=== PATIENT | male | born 1975 ===

== ENCOUNTER 2018-03-20 13:11 | Inpatient (IN) ==
[2018-03-20] MEDS ORDERED: Morphine Inj 4 MG/ML Vial ONE (13:16)
[2018-03-20] MEDS ORDERED: Diphtheria/Tetanus/Pertussis Vaccine Inj 0.5 ML Syringe IM ONE (13:17)
[2018-03-20] MEDS ORDERED: ceFAZolin 2 GM Premix Inj 2 GM/50 ML PIGGYBACK IV.SIG ONE (13:19)
[2018-03-20 13:34] LABS: Baso # (Auto) 0.1 th/mm3 (0.0-0.2); Baso % (Auto) 1.1 % (0.0-2.0); Eos # (Auto) 0.2 th/mm3 (0.0-0.4); Eos % (Auto) 2.9 % (0.0-4.0); Hemoglobin 14.6 gm/dL (13.0-17.0); Lymph # (Auto) 3.2 th/mm3 (1.0-4.8); Lymph % (Auto) 51.5 % (9.0-44.0); Mean Corpuscular HGB Conc 33.9 % (32.0-36.0); Mean Corpuscular Hemoglobin 32.5 pg (27.0-34.0); Mean Corpuscular Volume 95.7 fL (80.0-100.0); Mean Platelet Volume 7.1 fL (7.0-11.0); Mono # (Auto) 0.6 th/mm3 (0.0-0.9); Mono % (Auto) 9.9 % (0.0-8.0); Neut # (Auto) 2.1 th/mm3 (1.8-7.7); Neut % (Auto) 34.6 % (16.0-70.0); Platelet Count 244 th/mm3 (150-450); Red Cell Distribution Width 13.1 % (11.6-17.2); White Blood Count 6.1 th/mm3 (4.0-11.0)
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
[2018-03-20 13:44] LABS: Activated Partial Thrombo Time 21.6 sec (24.3-30.1); Prothrombin Time 10.2 sec (9.8-11.6)
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
[2018-03-20 14:14] LABS: Carbon Dioxide 23.5 meq/L (21.0-32.0); Potassium 3.9 meq/L (3.5-5.1)
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
[2018-03-20] MEDS ORDERED: Naloxone Inj 0.4 MG/ML Vial IV.PUSH PRN (14:58)
[2018-03-20] MEDS ORDERED: Morphine Inj 4 MG/ML Vial IV.PUSH PRN (14:58)
[2018-03-20] MEDS ORDERED: Bisacodyl 10 MG Supp RECTAL PRN (14:58)
[2018-03-20] MEDS ORDERED: Post-op Orders (for Pharmacy) OTHER ONE (14:58)
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
[2018-03-20] MEDS ORDERED: Lidocaine PF 1% Inj 5 ML Syringe OTHER ONE (15:15)
[2018-03-20] MEDS ORDERED: Phenylephrine/NS 1000 MCG/10ML Syringe IV.PUSH ONE (15:15)
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
[2018-03-20] MEDS ORDERED: Norepinephrine Inj 4 MG/4 ML Ampul ONE ×2 (16:35→16:40)
[2018-03-20 16:45] LABS: ABG Base Excess -7.6 mmol/L (-2-2); ABG PCO2 41 mmHg (38-42); ABG PO2 369 mmHG (61-120)
[2018-03-20] MEDS ORDERED: Sodium Bicarbonate 8.4% Inj 50 MEQ/50 ML Syringe ONE (16:58)
[2018-03-20] MEDS ORDERED: fentaNYL Citrate Inj 100 MCG/2 ML Ampul ONE ×3 (17:18→19:30)
[2018-03-20 17:20] LABS: Baso % (Auto) 0.5 % (0.0-2.0); Eos % (Auto) 0.3 % (0.0-4.0); Hematocrit 32.7 % (39.0-51.0); Hemoglobin 11.4 gm/dL (13.0-17.0); Lymph # (Auto) 1.3 th/mm3 (1.0-4.8); Lymph % (Auto) 12.9 % (9.0-44.0); Mean Corpuscular HGB Conc 34.8 % (32.0-36.0); Mean Corpuscular Hemoglobin 33.2 pg (27.0-34.0); Mean Corpuscular Volume 95.5 fL (80.0-100.0); Mean Platelet Volume 7.2 fL (7.0-11.0); Mono # (Auto) 0.7 th/mm3 (0.0-0.9); Mono % (Auto) 7.2 % (0.0-8.0); Neut # (Auto) 7.6 th/mm3 (1.8-7.7); Neut % (Auto) 79.1 % (16.0-70.0); Platelet Count 195 th/mm3 (150-450); Red Blood Count 3.43 mil/mm3 (4.50-5.90); White Blood Count 9.7 th/mm3 (4.0-11.0)
[2018-03-20] MEDS ORDERED: Propofol 1000 mg/100 ml Inj 1,000 MG/100 ML BOTTLE IV.CONT PRN (17:25)
[2018-03-20 17:35] LABS: Activated Partial Thrombo Time 23.7 sec (24.3-30.1); INR 1.1 Ratio
[2018-03-20 17:39] LABS: Calcium 7.3 mg/dL (8.5-10.1); Carbon Dioxide 20.4 meq/L (21.0-32.0); Potassium 4.2 meq/L (3.5-5.1)
[2018-03-20] MEDS ORDERED: Calcium Chloride Inj 1 GM/10 ML Syringe ONE (17:46)
[2018-03-20 17:53] LABS: Total Protein 4.9 g/dL (6.4-8.2)
[2018-03-20 18:37] LABS: ABG Base Excess -5.2 mmol/L (-2-2); ABG PCO2 41 mmHg (38-42); ABG PO2 226 mmHG (61-120)
[2018-03-20 18:43] LABS: Baso % (Auto) 0.3 % (0.0-2.0); Eos % (Auto) 0.1 % (0.0-4.0); Hematocrit 33.3 % (39.0-51.0); Hemoglobin 11.3 gm/dL (13.0-17.0); Lymph # (Auto) 0.8 th/mm3 (1.0-4.8); Lymph % (Auto) 10.7 % (9.0-44.0); Mean Corpuscular HGB Conc 33.9 % (32.0-36.0); Mean Corpuscular Hemoglobin 31.3 pg (27.0-34.0); Mean Corpuscular Volume 92.4 fL (80.0-100.0); Mono # (Auto) 0.7 th/mm3 (0.0-0.9); Mono % (Auto) 9.5 % (0.0-8.0); Neut # (Auto) 6.3 th/mm3 (1.8-7.7); Neut % (Auto) 79.4 % (16.0-70.0); Platelet Count 141 th/mm3 (150-450); Red Blood Count 3.61 mil/mm3 (4.50-5.90); Red Cell Distribution Width 14.9 % (11.6-17.2); White Blood Count 7.9 th/mm3 (4.0-11.0)
[2018-03-20] MEDS: fentaNYL 10 mcg/mL Premix Drip 2,500 MCG/250 ML BAG IV.SIG PRN (19:41)
[2018-03-20] MEDS: Sod Chloride 0.9% Inj 1,000 ML IV.CONT SCH (19:59)
[2018-03-20] MEDS ORDERED: Midazolam Inj 5 MG/ML 1 ML Vial IV.PUSH ONE (20:00)
[2018-03-20 20:02] LABS: Hematocrit 34.1 % (39.0-51.0); Hemoglobin 11.7 gm/dL (13.0-17.0); Mean Corpuscular HGB Conc 34.3 % (32.0-36.0); Mean Corpuscular Hemoglobin 31.5 pg (27.0-34.0); Mean Corpuscular Volume 91.8 fL (80.0-100.0); Mean Platelet Volume 6.9 fL (7.0-11.0); Platelet Count 150 th/mm3 (150-450); Red Blood Count 3.72 mil/mm3 (4.50-5.90); Red Cell Distribution Width 15.1 % (11.6-17.2); White Blood Count 5.3 th/mm3 (4.0-11.0)
[2018-03-20] MEDS: Senna/Docusate Sodium 8.6/50 MG Tablet PO SCH (20:02)
[2018-03-20] MEDS: Famotidine 20 MG Tablet PO SCH (20:03)
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
[2018-03-20 20:15] LABS: Anion Gap 10 meq/L (5-15); Blood Urea Nitrogen 7 mg/dL (7-18); Calcium 7.8 mg/dL (8.5-10.1); Carbon Dioxide 24.7 meq/L (21.0-32.0); Chloride 105 meq/L (98-107); Glomerular Filtration Rate Greater Than 89 mL/min (>89); Glucose,Random 117 mg/dL (74-106); Potassium 4.5 meq/L (3.5-5.1); Sodium 140 meq/L (136-145)
[2018-03-20 20:28] LABS: ABG PCO2 38 mmHg (38-42); ABG PO2 258 mmHg (61-120)
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
[2018-03-20] MEDS: Midazolam 50 MG/50 ML Inj 50 MG/50 ML BAG IV.CONT PRN (21:52)
[2018-03-20] MEDS ORDERED: Albumin Human 5% Inj 500 ML IV.SIG PRN (22:17)
[2018-03-20] MEDS ORDERED: Sod Chloride 0.9% Inj 1,000 ML IV.SIG SCH (22:30)
[2018-03-21] MEDS: Sod Chloride 0.9% Inj 1,000 ML IV.CONT SCH ×3 (01:31→22:16)
[2018-03-21 02:48] LABS: Amphetamine Screen,Urine Neg (Neg); Barbiturate Screen,Urine Neg (Neg); Cannabinoid Screen,Urine Neg (Neg); Cocaine Screen,Urine Neg (Neg)
[2018-03-21 02:49] LABS: Opiate Screen,Urine Neg (Neg)
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
[2018-03-21] MEDS: Midazolam 50 MG/50 ML Inj 50 MG/50 ML BAG IV.CONT PRN ×3 (05:32→19:59)
[2018-03-21 05:59] LABS: Baso % (Auto) 0.5 % (0.0-2.0); Eos % (Auto) 0.6 % (0.0-4.0); Hemoglobin 8.2 gm/dL (13.0-17.0); Lymph # (Auto) 0.9 th/mm3 (1.0-4.8); Lymph % (Auto) 30.1 % (9.0-44.0); Mean Corpuscular HGB Conc 34.2 % (32.0-36.0); Mean Corpuscular Hemoglobin 31.5 pg (27.0-34.0); Mean Corpuscular Volume 91.9 fL (80.0-100.0); Mean Platelet Volume 7.1 fL (7.0-11.0); Mono # (Auto) 0.3 th/mm3 (0.0-0.9); Mono % (Auto) 9.8 % (0.0-8.0); Neut # (Auto) 1.9 th/mm3 (1.8-7.7); Platelet Count 113 th/mm3 (150-450); Red Blood Count 2.61 mil/mm3 (4.50-5.90); Red Cell Distribution Width 15.3 % (11.6-17.2); White Blood Count 3.2 th/mm3 (4.0-11.0)
[2018-03-21 06:27] LABS: Calcium 6.6 mg/dL (8.5-10.1); Carbon Dioxide 25.5 meq/L (21.0-32.0); Potassium 4.1 meq/L (3.5-5.1)
[2018-03-21 06:40] LABS: Total Protein 4.3 g/dL (6.4-8.2)
[2018-03-21 06:46] LABS: ABG Base Excess 0.9 mmol/L (-2-2); ABG PCO2 43 mmHg (38-42); ABG PO2 115 mmHg (61-120)
--- NOTE | 2018-03-21 07:14 | P.PNOP ---
Subjective Interval history: s/p MCA s/p open left distal tibia fx s/p left acetabulum fx with hip dislocation s/p left proximal humerus fx with shoulder dislocation intubated. awake and responds to commands Physical Exam Vital signs: Vital Signs 03/20/18 13:40 03/20/18 13:42 03/20/18 14:15 Temperature 96.8 F L Pulse Rate 58 L Respiratory Rate 14 Blood Pressure 131/82 Pulse Oximetry 98 98 100 03/20/18 19:16 03/20/18 19:57 03/20/18 20:00 Temperature 97.6 F Pulse Rate 92 H Respiratory Rate 19 16 16 Blood Pressure 140/81 Pulse Oximetry 100 100 100 03/21/18 00:00 03/21/18 00:05 03/21/18 03:18 Temperature 98 F Pulse Rate 104 H Respiratory Rate 16 16 16 Blood Pressure 120/67 Pulse Oximetry 99 99 03/21/18 04:00 Temperature 97.7 F Pulse Rate 80 Respiratory Rate 16 Blood Pressure 111/53 L Pulse Oximetry 100 Intake & Output 03/20/18 03/21/18 03/21/18 18:59 06:59 18:59 Intake Total 50 / 50 7650 / 7650 Output Total 2830 / 2830 Balance 50 / 50 4820 / 4820 Weight 74 kg 78.7 kg Intake: IV 50 / 50 2650 / 2650 Versed Inj 50 mg In 50 ml @ 2 50 / 50 MG/HR 2 mls/hr IV.CONT TITRATE PRN Rx#:[id number] NS Inj 1,000 ML @ 100 mls/hr IV 1000 / 1000 .CONT .Q10H [facility] [place] Rx#:[id number] Alburx 5% Inj 500 ML @ 500 mls/ 500 / 500 hr IV.SIG UNSCH X1 PRN Rx#: [id number] NS Inj 1,000 ML @ 999 mls/hr IV 1000 / 1000 .SIG .Q1H1M [facility] Rx#:[id number] Ancef 2 GM Premix Inj 2 gm In 50 / 50 50 ml @ 0 mls/hr IV.SIG .STK- [facility] Rx#:[id number] Rocephin Inj 1,000 MG In NS Inj 100 / 100 100 ML @ 200 mls/hr IV.SIG Q12H DON Rx#:[id number] Anesthesia Amount 5000 / 5000 Output: Estimated Blood Loss 800 / 800 Urine Amount (Catheter) 1600 / 1600 Indwelling Urethral Catheter 1600 / 1600 Gastric Drainage 30 / 30 Orogastric Tube 30 / 30 Wound Vac Amount 400 / 400 Left Ankle 400 / 400 Other: Mode Setting Left Ankle Continuous Left Knee Continuous Right Wrist Continuous # Bowel Movements 0 Weight On Admission 74 kg Narrative: LLE: +skeletal traction. dressings over wound vac have bloody drainage posterior. +vac. seal holding. exfix in place on ankle. LUE: +sling. good cap refill. nvi - Urinary Catheter Management Indwelling Urethral Catheter Cath placed during this visit: yes Reason for continuing: Hourly intake/output Insertion date: 03/20/18 Insertion time: 15:31 Results - Labs CBC & Chem 7: 03/21/18 05:30 03/21/18 05:30 Laboratory Results - last 24 hr 03/20/18 03/20/18 03/20/18 13:15 13:15 13:15 CBC w Diff WBC 6.1 Corrected WBC RBC 4.50 Hgb 14.6 POC Hgb (Calc) 14.6 Hct 43.0 POC Hct 43.0 MCV 95.7 MCH 32.5 MCHC 33.9 RDW 13.1 Plt Count 244 MPV 7.1 Prelim Diff (Auto) Immature Gran % (Auto) Neut % (Auto) 34.6 Lymph % (Auto) 51.5 H George % (Auto) 9.9 H Eos % (Auto) 2.9 Baso % (Auto) 1.1 Immature Gran # (Auto) Neut # (Auto) 2.1 Lymph # (Auto) 3.2 George # (Auto) 0.6 Eos # (Auto) 0.2 Baso # (Auto) 0.1 WBC Differential . Diff Scan Seg Neuts % (Manual) Band Neuts % (Manual) Lymphocytes % (Manual) Atypical Lymphs % (Man) Monocytes % (Manual) Eosinophils % (Manual) Basophils % (Manual) Metamyelocytes % (Man) Myelocytes % (Man) Promyelocytes % (Man) Blast Cells % (Manual) Plasma Cell % (Manual) Other Cells % Abs Neuts (Manual) Nucleated RBCs/100 WBC Differential Comment Auto diff final Hypersegmented Neuts Smudge Cells Toxic Granulation Toxic Vacuolation Dohle Bodies Platelet Estimate Platelet Morphology RBC Morphology Dimorphic RBCs Polychromasia Basophilic Stippling Spherocytes Pappenheimer Bodies Sickle Cells Target Cells Tear Drop Cells Ovalocytes Stomatocytes Helmet Cells [place] Bodies [place] Cells Acanthocytes (Spur) Rouleaux Keratocytes Hematology Comments PT 10.2 INR 1.0 APTT 21.6 L Fibrinogen Puncture Site Patient Temperature O2 Saturation ABG pH ABG pCO2 ABG pO2 ABG HCO3 ABG O2 Content ABG Base Excess ABG Methemoglobin Daniel Test Hemoglobin Carboxyhemoglobin O2 Delivery Device Vent Setting Inspired O2 Critical Value POC Sodium 139 Sodium POC Potassium 3.9 Potassium POC Chloride 100 L Chloride Carbon Dioxide Anion Gap POC BUN 6 BUN Creatinine POC Creatinine 1.2 Estimated GFR POC Glucose 102 Random Glucose Calcium Prot Corrected Calcium Total Protein Urine Opiates Screen Ur Barbiturates Screen Ur Amphetamines Screen U Benzodiazepines Scrn Urine Cocaine Screen U Cannabinoids Screen Serum Alcohol Blood Type Antibody Screen MTS Gel Crossmatch Bld Prod Order Comment 03/20/18 03/20/18 03/20/18 13:15 13:15 13:15 CBC w Diff WBC Corrected WBC RBC Hgb POC Hgb (Calc) Hct POC Hct MCV MCH MCHC RDW Plt Count MPV Prelim Diff (Auto) Immature Gran % (Auto) Neut % (Auto) Lymph % (Auto) George % (Auto) Eos % (Auto) Baso % (Auto) Immature Gran # (Auto) Neut # (Auto) Lymph # (Auto) George # (Auto) Eos # (Auto) Baso # (Auto) WBC Differential Diff Scan Seg Neuts % (Manual) Band Neuts % (Manual) Lymphocytes % (Manual) Atypical Lymphs % (Man) Monocytes % (Manual) Eosinophils % (Manual) Basophils % (Manual) Metamyelocytes % (Man) Myelocytes % (Man) Promyelocytes % (Man) Blast Cells % (Manual) Plasma Cell % (Manual) Other Cells % Abs Neuts (Manual) Nucleated RBCs/100 WBC Differential Comment Hypersegmented Neuts Smudge Cells Toxic Granulation Toxic Vacuolation Dohle Bodies Platelet Estimate Platelet Morphology RBC Morphology Dimorphic RBCs Polychromasia Basophilic Stippling Spherocytes Pappenheimer Bodies Sickle Cells Target Cells Tear Drop Cells Ovalocytes Stomatocytes Helmet Cells [place] Bodies Soheila Cells Acanthocytes (Spur) Rouleaux Keratocytes Hematology Comments PT INR APTT Fibrinogen 177 L Puncture Site Patient Temperature O2 Saturation ABG pH ABG pCO2 ABG pO2 ABG HCO3 ABG O2 Content ABG Base Excess ABG Methemoglobin Daniel Test Hemoglobin Carboxyhemoglobin O2 Delivery Device Vent Setting Inspired O2 Critical Value POC Sodium Sodium 141 POC Potassium Potassium 3.9 POC Chloride Chloride 105 Carbon Dioxide 23.5 Anion Gap 13 POC BUN BUN 8 Creatinine 1.03 POC Creatinine Estimated GFR 62 L POC Glucose Random Glucose 101 Calcium 8.0 L Prot Corrected Calcium Total Protein Urine Opiates Screen Ur Barbiturates Screen Ur Amphetamines Screen U Benzodiazepines Scrn Urine Cocaine Screen U Cannabinoids Screen Serum Alcohol 170 H Blood Type O Negative Antibody Screen Negative MTS Gel Crossmatch See Detail Bld Prod Order Comment 03/20/18 03/20/18 03/20/18 13:15 16:25 16:32 CBC w Diff Pulp Tester WBC 9.7 D Corrected WBC Pulp Tester RBC 3.43 L Hgb 11.4 L D POC Hgb (Calc) Hct 32.7 L POC Hct MCV 95.5 MCH 33.2 MCHC 34.8 RDW 13.0 Plt Count 195 MPV 7.2 Prelim Diff (Auto) Pulp Tester Immature Gran % (Auto) Pulp Tester Neut % (Auto) 79.1 H Lymph % (Auto) 12.9 George % (Auto) 7.2 Eos % (Auto) 0.3 Baso % (Auto) 0.5 Immature Gran # (Auto) Pulp Tester Neut # (Auto) 7.6 Lymph # (Auto) 1.3 George # (Auto) 0.7 Eos # (Auto) 0.0 Baso # (Auto) 0.0 WBC Differential Pulp Tester Diff Scan Pulp Tester Seg Neuts % (Manual) Pulp Tester Band Neuts % (Manual) Pulp Tester Lymphocytes % (Manual) Pulp Tester Atypical Lymphs % (Man) Pulp Tester Monocytes % (Manual) Pulp Tester Eosinophils % (Manual) Pulp Tester Basophils % (Manual) Pulp Tester Metamyelocytes % (Man) Pulp Tester Myelocytes % (Man) Pulp Tester Promyelocytes % (Man) Pulp Tester Blast Cells % (Manual) Pulp Tester Plasma Cell % (Manual) Pulp Tester Other Cells % Pulp Tester Abs Neuts (Manual) Pulp Tester Nucleated RBCs/100 WBC Pulp Tester Differential Comment Auto diff final Hypersegmented Neuts Pulp Tester Smudge Cells Pulp Tester Toxic Granulation Pulp Tester Toxic Vacuolation Pulp Tester Dohle Bodies Pulp Tester Platelet Estimate Pulp Tester Platelet Morphology Pulp Tester RBC Morphology Pulp Tester Dimorphic RBCs Pulp Tester Polychromasia Pulp Tester Basophilic Stippling Pulp Tester Spherocytes Pulp Tester Pappenheimer Bodies Pulp Tester Sickle Cells Pulp Tester Target Cells Pulp Tester Tear Drop Cells Pulp Tester Ovalocytes Pulp Tester Stomatocytes Pulp Tester Helmet Cells Pulp Tester [place] Bodies Pulp Tester [place] Cells Pulp Tester Acanthocytes (Spur) Pulp Tester Rouleaux Pulp Tester Keratocytes Pulp Tester Hematology Comments Pulp Tester PT INR APTT Fibrinogen Puncture Site Drawn in or Patient Temperature 98.6 O2 Saturation 96 ABG pH 7.27 L* ABG pCO2 41 ABG pO2 369 H ABG HCO3 18 L ABG O2 Content 16.1 ABG Base Excess -7.6 L ABG Methemoglobin 1.9 Daniel Test Hemoglobin 11.2 L Carboxyhemoglobin 1.4 O2 Delivery Device Or Vent Setting Inspired O2 Critical Value Yes POC Sodium Sodium POC Potassium Potassium POC Chloride Chloride Carbon Dioxide Anion Gap POC BUN BUN Creatinine POC Creatinine Estimated GFR POC Glucose Random Glucose Calcium Prot Corrected Calcium Total Protein Urine Opiates Screen Ur Barbiturates Screen Ur Amphetamines Screen U Benzodiazepines Scrn Urine Cocaine Screen U Cannabinoids Screen Serum Alcohol Blood Type Antibody Screen MTS Gel Crossmatch See Detail Bld Prod Order Comment 03/20/18 03/20/18 03/20/18 16:32 16:32 17:50 CBC w Diff WBC Corrected WBC RBC Hgb POC Hgb (Calc) Hct POC Hct MCV MCH MCHC RDW Plt Count MPV Prelim Diff (Auto) Immature Gran % (Auto) Neut % (Auto) Lymph % (Auto) George % (Auto) Eos % (Auto) Baso % (Auto) Immature Gran # (Auto) Neut # (Auto) Lymph # (Auto) George # (Auto) Eos # (Auto) Baso # (Auto) WBC Differential Diff Scan Seg Neuts % (Manual) Band Neuts % (Manual) Lymphocytes % (Manual) Atypical Lymphs % (Man) Monocytes % (Manual) Eosinophils % (Manual) Basophils % (Manual) Metamyelocytes % (Man) Myelocytes % (Man) Promyelocytes % (Man) Blast Cells % (Manual) Plasma Cell % (Manual) Other Cells % Abs Neuts (Manual) Nucleated RBCs/100 WBC Differential Comment Hypersegmented Neuts Smudge Cells Toxic Granulation Toxic Vacuolation Dohle Bodies Platelet Estimate Platelet Morphology RBC Morphology Dimorphic RBCs Polychromasia Basophilic Stippling Spherocytes Pappenheimer Bodies Sickle Cells Target Cells Tear Drop Cells Ovalocytes Stomatocytes Helmet Cells [place] Bodies [place] Cells Acanthocytes (Spur) Rouleaux Keratocytes Hematology Comments PT 11.0 INR 1.1 APTT 23.7 L Fibrinogen Puncture Site Patient Temperature O2 Saturation ABG pH ABG pCO2 ABG pO2 ABG HCO3 ABG O2 Content ABG Base Excess ABG Methemoglobin Daniel Test Hemoglobin Carboxyhemoglobin O2 Delivery Device Vent Setting Inspired O2 Critical Value POC Sodium Sodium 139 POC Potassium Potassium 4.2 POC Chloride Chloride 105 Carbon Dioxide 20.4 L Anion Gap 14 POC BUN BUN 8 Creatinine 0.83 POC Creatinine Estimated GFR 80 L POC Glucose Random Glucose 119 H Calcium 7.3 L* Prot Corrected Calcium 8.5 Total Protein 4.9 L Urine Opiates Screen Ur Barbiturates Screen Ur Amphetamines Screen U Benzodiazepines Scrn Urine Cocaine Screen U Cannabinoids Screen Serum Alcohol Blood Type Antibody Screen MTS Gel Crossmatch See Detail Bld Prod Order Comment 03/20/18 03/20/18 03/20/18 18:15 18:15 19:50 CBC w Diff WBC 7.9 5.3 Corrected WBC RBC 3.61 L 3.72 L Hgb 11.3 L 11.7 L POC Hgb (Calc) Hct 33.3 L 34.1 L POC Hct MCV 92.4 91.8 MCH 31.3 31.5 MCHC 33.9 34.3 RDW 14.9 15.1 Plt Count 141 L 150 MPV 7.0 6.9 L Prelim Diff (Auto) Immature Gran % (Auto) Neut % (Auto) 79.4 H Lymph % (Auto) 10.7 George % (Auto) 9.5 H Eos % (Auto) 0.1 Baso % (Auto) 0.3 Immature Gran # (Auto) Neut # (Auto) 6.3 Lymph # (Auto) 0.8 L George # (Auto) 0.7 Eos # (Auto) 0.0 Baso # (Auto) 0.0 WBC Differential . Diff Scan Seg Neuts % (Manual) Band Neuts % (Manual) Lymphocytes % (Manual) Atypical Lymphs % (Man) Monocytes % (Manual) Eosinophils % (Manual) Basophils % (Manual) Metamyelocytes % (Man) Myelocytes % (Man) Promyelocytes % (Man) Blast Cells % (Manual) Plasma Cell % (Manual) Other Cells % Abs Neuts (Manual) Nucleated RBCs/100 WBC Differential Comment Auto diff final Hypersegmented Neuts Smudge Cells Toxic Granulation Toxic Vacuolation Dohle Bodies Platelet Estimate Platelet Morphology RBC Morphology Dimorphic RBCs Polychromasia Basophilic Stippling Spherocytes Pappenheimer Bodies Sickle Cells Target Cells Tear Drop Cells Ovalocytes Stomatocytes Helmet Cells [place] Bodies Soheila Cells Acanthocytes (Spur) Rouleaux Keratocytes Hematology Comments PT INR APTT Fibrinogen Puncture Site Drawn in or Patient Temperature 98.6 O2 Saturation 97 ABG pH 7.31 L ABG pCO2 41 ABG pO2 226 H ABG HCO3 20 L ABG O2 Content 15.9 ABG Base Excess -5.2 L ABG Methemoglobin 1.6 Daniel Test Present Hemoglobin 11.3 L Carboxyhemoglobin 1.0 O2 Delivery Device Ventilator Vent Setting Or settings Inspired O2 60 Critical Value No POC Sodium Sodium POC Potassium Potassium POC Chloride Chloride Carbon Dioxide Anion Gap POC BUN BUN Creatinine POC Creatinine Estimated GFR POC Glucose Random Glucose Calcium Prot Corrected Calcium Total Protein Urine Opiates Screen Ur Barbiturates Screen Ur Amphetamines Screen U Benzodiazepines Scrn Urine Cocaine Screen U Cannabinoids Screen Serum Alcohol Blood Type Antibody Screen MTS Gel Crossmatch Bld Prod Order Comment 03/20/18 03/20/18 03/21/18 19:50 20:18 02:27 CBC w Diff WBC Corrected WBC RBC Hgb POC Hgb (Calc) Hct POC Hct MCV MCH MCHC RDW Plt Count MPV Prelim Diff (Auto) Immature Gran % (Auto) Neut % (Auto) Lymph % (Auto) George % (Auto) Eos % (Auto) Baso % (Auto) Immature Gran # (Auto) Neut # (Auto) Lymph # (Auto) George # (Auto) Eos # (Auto) Baso # (Auto) WBC Differential Diff Scan Seg Neuts % (Manual) Band Neuts % (Manual) Lymphocytes % (Manual) Atypical Lymphs % (Man) Monocytes % (Manual) Eosinophils % (Manual) Basophils % (Manual) Metamyelocytes % (Man) Myelocytes % (Man) Promyelocytes % (Man) Blast Cells % (Manual) Plasma Cell % (Manual) Other Cells % Abs Neuts (Manual) Nucleated RBCs/100 WBC Differential Comment Hypersegmented Neuts Smudge Cells Toxic Granulation Toxic Vacuolation Dohle Bodies Platelet Estimate Platelet Morphology RBC Morphology Dimorphic RBCs Polychromasia Basophilic Stippling Spherocytes Pappenheimer Bodies Sickle Cells Target Cells Tear Drop Cells Ovalocytes Stomatocytes Helmet Cells [place] Bodies [place] Cells Acanthocytes (Spur) Rouleaux Keratocytes Hematology Comments PT INR APTT Fibrinogen Puncture Site Art line Patient Temperature 98.6 O2 Saturation 97 ABG pH 7.38 ABG pCO2 38 ABG pO2 258 H ABG HCO3 22 ABG O2 Content 14.5 ABG Base Excess -2.0 ABG Methemoglobin 1.3 Daniel Test Present Hemoglobin 10.2 L Carboxyhemoglobin 1.4 O2 Delivery Device Ventilator Vent Setting Prvc/ ac Inspired O2 60 Critical Value No POC Sodium Sodium 140 POC Potassium Potassium 4.5 POC Chloride Chloride 105 Carbon Dioxide 24.7 Anion Gap 10 POC BUN BUN 7 Creatinine 0.71 POC Creatinine Estimated GFR Greater than 89 POC Glucose Random Glucose 117 H Calcium 7.8 L Prot Corrected Calcium Total Protein Urine Opiates Screen Neg Ur Barbiturates Screen Neg Ur Amphetamines Screen Neg U Benzodiazepines Scrn Pos H Urine Cocaine Screen Neg U Cannabinoids Screen Neg Serum Alcohol Blood Type Antibody Screen MTS Gel Crossmatch Bld Prod Order Comment 03/21/18 03/21/18 03/21/18 05:30 05:30 06:35 CBC w Diff WBC 3.2 L Corrected WBC RBC 2.61 L Hgb 8.2 L D POC Hgb (Calc) Hct 24.0 L POC Hct MCV 91.9 MCH 31.5 MCHC 34.2 RDW 15.3 Plt Count 113 L MPV 7.1 Prelim Diff (Auto) Immature Gran % (Auto) Neut % (Auto) 59.0 Lymph % (Auto) 30.1 George % (Auto) 9.8 H Eos % (Auto) 0.6 Baso % (Auto) 0.5 Immature Gran # (Auto) Neut # (Auto) 1.9 Lymph # (Auto) 0.9 L George # (Auto) 0.3 Eos # (Auto) 0.0 Baso # (Auto) 0.0 WBC Differential . Diff Scan Seg Neuts % (Manual) Band Neuts % (Manual) Lymphocytes % (Manual) Atypical Lymphs % (Man) Monocytes % (Manual) Eosinophils % (Manual) Basophils % (Manual) Metamyelocytes % (Man) Myelocytes % (Man) Promyelocytes % (Man) Blast Cells % (Manual) Plasma Cell % (Manual) Other Cells % Abs Neuts (Manual) Nucleated RBCs/100 WBC Differential Comment Auto diff final Hypersegmented Neuts Smudge Cells Toxic Granulation Toxic Vacuolation Dohle Bodies Platelet Estimate Platelet Morphology RBC Morphology Dimorphic RBCs Polychromasia Basophilic Stippling Spherocytes Pappenheimer Bodies Sickle Cells Target Cells Tear Drop Cells Ovalocytes Stomatocytes Helmet Cells [place] Bodies [place] Cells Acanthocytes (Spur) Rouleaux Keratocytes Hematology Comments PT INR APTT Fibrinogen Puncture Site Art line Patient Temperature 98.6 O2 Saturation 96 ABG pH 7.39 ABG pCO2 43 H ABG pO2 115 ABG HCO3 25 ABG O2 Content 11.0 L ABG Base Excess 0.9 ABG Methemoglobin 1.3 Daniel Test Hemoglobin 8.0 L Carboxyhemoglobin 1.6 O2 Delivery Device Ventilator Vent Setting See comment Inspired O2 40 Critical Value No POC Sodium Sodium 144 POC Potassium Potassium 4.1 POC Chloride Chloride 108 H Carbon Dioxide 25.5 Anion Gap 11 POC BUN BUN 10 Creatinine 0.97 POC Creatinine Estimated GFR 67 L POC Glucose Random Glucose 119 H Calcium 6.6 L* D Prot Corrected Calcium 8.1 L Total Protein 4.3 L D Urine Opiates Screen Ur Barbiturates Screen Ur Amphetamines Screen U Benzodiazepines Scrn Urine Cocaine Screen U Cannabinoids Screen Serum Alcohol Blood Type Antibody Screen MTS Gel Crossmatch Bld Prod Order Comment - Imaging Impressions Ankle X-Ray 03/20/18 00:00 CONCLUSION: 1. Severely comminuted fractures involving the distal tibia and fibula with gas in the subcutaneous tissues suggesting open fracture. 2. The ankle mortise is disrupted. The lateral malleolus appears to be posterior to the talus. Aorta w/Runoff CTA 03/20/18 00:00 CONCLUSION: 1. No evidence of proximal arterial injury. 2. In the distal left calf, the left anterior tibial artery is attenuated and displaced by the patient's tibial fractures, however flow does appear to be intact into the dorsalis pedis. The peroneal and posterior tibial vessels taper to absence at the level of the fracture injury, potentially secondary to soft tissue swelling and/or vasospasm. 3. If circulation to the foot remains in question following fracture reduction , catheter arteriography is offered for definitive assessment Hip X-Ray 03/20/18 00:00 CONCLUSION: Severely comminuted fracturing of the left acetabulum. Previously seen dislocation of the left hip has been reduced back into the socket. Shoulder X-Ray 03/20/18 00:00 CONCLUSION: Comminuted Hill-Sachs/greater tuberosity fracturing of the left humerus. The previously seen anterior dislocation has been reduced. Tibia/Fibula X-Ray 03/20/18 00:00 CONCLUSION: Interim external fixation as described. No acute complication demonstrated. Chest X-Ray 03/20/18 13:12 CONCLUSION: Negative examination. Pelvis X-Ray 03/20/18 13:12 CONCLUSION: Acute left pelvic fracture including acetabular protrusio. Abdomen/Pelvis CT 03/20/18 13:15 CONCLUSION: 1. Heavily comminuted left pelvic fractures with associated intrapelvic hemorrhage. 2. Dislocated left hip. Cervical Spine CT 03/20/18 13:15 CONCLUSION: No acute bony injury in the cervical spine. Chest CT 03/20/18 13:15 CONCLUSION: 1. Left shoulder anterior dislocation with comminuted impacted Hill-Sachs fracture deformity. 2. No acute intrathoracic injury. Head CT 03/20/18 13:15 CONCLUSION: 1. No acute intracranial abnormality. 2. Chronic paranasal sinus disease. . Thoracic Spine CT 03/20/18 13:15 CONCLUSION: 1. No acute fracture of the thoracic spine identified. Shoulder CT 03/20/18 15:01 CONCLUSION: 1. Dislocation of the humeral head on the glenoid with a markedly comminuted fracture involving the greater tuberosity. The glenoid Glenoid shows no evidence of fracture. Numerous small possible metallic fragments lateral to the humeral neck extending into the deltoid muscle. Pelvis CT 03/20/18 15:05 CONCLUSION: 1. Left pelvic fractures are noted. Chest X-Ray 03/21/18 00:00 CONCLUSION: 1. ETT in good position. NGT in the stomach. 2. Lungs are clear. Assessment and Plan - Assessment and Plan 1) Left Proximal Humerus Fx/dislocation s/p closed reduction 2) Left Acetabulum Fx/dislocation s/p closed reduction with skeletal traction 3) Left Open Distal Tibia/Fibula Fx s/p I&D and vac placement with Exfix application -will obtain CT scan of left hip today. Pending results, will plan for ORIF of acetabulum today -order placed for type and scree for 4 unites of PRBC in anticipation for surgery today -the left ankle will need a free flap by plastic surgery. This will need to be done at [facility]. Will begin process of arranging transfer to [place] for definitive care of ankle. will plan for repeat I&D today while working on acetabulum. -consents on chart
--- NOTE | 2018-03-21 08:46 | CT ---
EXAM DATE: 03/21/2018 8:19 AM EDT AGE/SEX: 89 years / Male INDICATIONS: Status post trauma, pelvic binder placement. CLINICAL DATA: This is the patient's initial encounter. Patient reports that signs and symptoms have been present for 2 days and indicates a pain score of Nonresponsive. MEDICAL/SURGICAL HISTORY: Non-responsive. Non-responsive. RADIATION DOSE: 13.18 CTDI (mGy) COMPARISON: [facility] [place], CT ABDOMEN & PELVIS W CONTRAST, 03/20/2018. . TECHNIQUE: Multiple contiguous axial images were obtained through the pelvis without contrast. Imag es were obtained using multiple row detector helical technique. . Using automated exposure control an d adjustment of the mA and/or kV according to patient size, radiation dose was kept as low as reasona robert achievable to obtain optimal diagnostic quality images. DICOM format image data is available oxana ctronically for review and comparison. FINDINGS: Bowel/Mesentery: The bowel loops are grossly unremarkable. The sigmoid colon has a normal configura tion. Bladder: A Ansari catheter is identified in place. The bladder is decompressed. There are no perivesi cular fluid collections to suggest lateral rupture. Retroperitoneum: A left-sided pelvic retroperitoneal hematoma is identified. Hematoma extends from t he left acetabular region superiorly to the aortoiliac bifurcation. Reproductive Organs: No abnormal masses or calcifications seen. Inguinal: A left inguinal hernia containing what appears to be a small knuckle of bowel is noted. Th ere is no evidence of entrapment. Bony Structures: A severely comminuted fracture is identified of the left acetabulum. The posterior column is fragmented. There is posterior displacement of the femoral head with evidence of a moderate to large joint effusion. A fat fluid level is identified within the effusion from the fractured bone . CONCLUSION: 1. Left posterior hip dislocation with a severely comminuted fracture of the acetabulum predominatel y involving the posterior column. 2. Large left hip joint effusion with fat/fluid level 3. Left-sided pelvic retroperitoneal hematoma with no other evidence of pelvic soft tissue injury. Electronically signed by: Pipe Eddy MD 03/21/2018 8:45 AM EDT
[2018-03-21] MEDS: Chlorhexidine 0.12% Oral Kit 15 ML UDC OROPHARYNG SCH ×2 (08:59→19:59)
[2018-03-21] MEDS: Senna/Docusate Sodium 8.6/50 MG Tablet PO SCH ×2 (09:00→19:59)
[2018-03-21] MEDS: Famotidine 20 MG Tablet PO SCH ×2 (09:02→19:59)
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
[2018-03-21] MEDS ORDERED: Calcium Chloride Inj 1 GM/10 ML Syringe IV.CONT ONE (09:24)
[2018-03-21] MEDS ORDERED: ceFAZolin 2 GM Premix Inj 2 GM/50 ML PIGGYBACK IV.SIG ONE (09:31)
[2018-03-21 10:07] LABS: ABG Base Excess 0.5 mmol/L (-2-2); ABG PCO2 49 mmHg (38-42); ABG PO2 309 mmHG (61-120)
[2018-03-21] MEDS ORDERED: Calcium Chloride Inj 1 GM/10 ML Syringe ONE (10:08)
[2018-03-21] MEDS ORDERED: Heparin - SQ 10,000 UNITS/ML Vial ONE (10:27)
[2018-03-21 11:27] LABS: ABG PCO2 42 mmHg (38-42); ABG PO2 310 mmHG (61-120)
[2018-03-21] MEDS: Oral Hygiene Kit OROPHARYNG SCH ×3 (12:14→23:23)
[2018-03-21] MEDS ORDERED: Vancomycin Consult Pharmacy 1 EACH OTHER SCH (13:30)
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
[2018-03-21] MEDS: fentaNYL 10 mcg/mL Premix Drip 2,500 MCG/250 ML BAG IV.SIG PRN (15:04)
[2018-03-21 15:10] LABS: Hematocrit 21.8 % (39.0-51.0); Hemoglobin 7.6 gm/dL (13.0-17.0)
--- NOTE | 2018-03-21 15:21 | XR ---
EXAM DATE: 03/21/2018 3:17 PM EDT AGE/SEX: 89 years / Male INDICATIONS: Post op left acetabulum and left hip. CLINICAL DATA: This is the patient's initial encounter. Patient reports that signs and symptoms have been present for 1 day and indicates a pain score of Nonresponsive. MEDICAL/SURGICAL HISTORY: Non-responsive. Non-responsive. COMPARISON: [facility], HIP LEFT AP ONLY 1V, 03/20/2018. . FINDINGS: 10 intraoperative body images of the left hip. Malleable internal fixation plates are seen in the tomas tabulum. Multiple transfixing screws. 3 screws are seen in the proximal femur. CONCLUSION: Internal fixation hardware in the acetabulum and proximal femur. Electronically signed by: Wilberto Fernández MD 03/21/2018 3:20 PM EDT
[2018-03-21] MEDS: Multivitamin Inj 10 ML, Thiamine Inj 100 MG, Folic Acid Inj 1 MG in Sodium Chlor 0.9% I... IV.SIG SCH (15:40)
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
[2018-03-21] MEDS ORDERED: Sodium Chlor 0.9% Inj 250 ML IV.SIG SCH (16:00)
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
[2018-03-21] MEDS: ceFAZolin Inj 2,000 MG in Sodium Chlor 0.9% Inj 80 ML IV.SIG SCH (19:24)
[2018-03-21] MEDS: Vancomycin Inj 1,500 MG in Sodium Chlor 0.9% Inj 500 ML IV.SIG SCH (19:24)
[2018-03-21] MEDS: Enoxaparin Inj 30 MG/0.3 ML Syringe SQ SCH (19:59)
[2018-03-22] MEDS: ceFAZolin Inj 2,000 MG in Sodium Chlor 0.9% Inj 80 ML IV.SIG SCH ×3 (00:19→17:45)
[2018-03-22] MEDS: fentaNYL 10 mcg/mL Premix Drip 2,500 MCG/250 ML BAG IV.SIG PRN ×2 (00:20→19:39)
[2018-03-22] MEDS: Midazolam 50 MG/50 ML Inj 50 MG/50 ML BAG IV.CONT PRN ×2 (00:21→05:02)
[2018-03-22 03:00] LABS: Hematocrit 24.6 % (39.0-51.0); Hemoglobin 8.7 gm/dL (13.0-17.0); Mean Corpuscular HGB Conc 35.4 % (32.0-36.0); Mean Corpuscular Hemoglobin 31.3 pg (27.0-34.0); Mean Corpuscular Volume 88.6 fL (80.0-100.0); Mean Platelet Volume 7.5 fL (7.0-11.0); Platelet Count 92 th/mm3 (150-450); Red Blood Count 2.77 mil/mm3 (4.50-5.90); Red Cell Distribution Width 15.7 % (11.6-17.2); White Blood Count 3.5 th/mm3 (4.0-11.0)
[2018-03-22 03:27] LABS: Eosinophils 1 % (0-4); Lymphocytes 10 % (9-44); Monocytes 3 % (0-8); Platelet Morphology Normal (Normal); RBC Morphology Normal (Normal)
[2018-03-22 03:37] LABS: Carbon Dioxide 30.6 meq/L (21.0-32.0); Potassium 3.9 meq/L (3.5-5.1)
[2018-03-22] MEDS: Vancomycin Inj 1,500 MG in Sodium Chlor 0.9% Inj 500 ML IV.SIG SCH ×2 (05:01→17:46)
[2018-03-22] MEDS: Oral Hygiene Kit OROPHARYNG SCH ×4 (05:01→23:04)
[2018-03-22] MEDS: Sod Chloride 0.9% Inj 1,000 ML IV.CONT SCH ×2 (06:11→17:42)
--- NOTE | 2018-03-22 07:01 | P.PNOP ---
Subjective Interval history: Intubated and stable after surgery POD 1 Physical Exam Vital signs: Vital Signs 03/21/18 07:20 03/21/18 08:00 03/21/18 08:30 Temperature 99.1 F Pulse Rate 96 H 113 H Respiratory Rate 16 17 Blood Pressure 116/61 Pulse Oximetry 100 99 100 03/21/18 09:15 03/21/18 14:46 03/21/18 14:53 Temperature Pulse Rate 75 Respiratory Rate 16 16 Blood Pressure Pulse Oximetry 100 99 03/21/18 16:00 03/21/18 16:04 03/21/18 16:20 Temperature 98.8 F 98.8 F 99.6 F Pulse Rate 95 H 95 H 95 H Respiratory Rate 16 16 16 Blood Pressure 133/60 132/63 133/60 Pulse Oximetry 99 100 99 03/21/18 16:32 03/21/18 16:50 03/21/18 18:22 Temperature 99.3 F 99.2 F Pulse Rate 88 95 H Respiratory Rate 16 16 16 Blood Pressure 125/59 L 132/65 Pulse Oximetry 99 99 98 03/21/18 20:00 03/21/18 20:18 03/22/18 00:00 Temperature 100.1 F H 100.3 F H Pulse Rate 96 H 95 H 90 Respiratory Rate 16 19 16 Blood Pressure 122/64 92/50 L Pulse Oximetry 99 100 100 03/22/18 00:04 03/22/18 03:16 03/22/18 03:17 Temperature Pulse Rate 87 Respiratory Rate 16 16 16 Blood Pressure Pulse Oximetry 99 100 03/22/18 04:00 Temperature 100.9 F H Pulse Rate 86 Respiratory Rate 16 Blood Pressure 92/46 L Pulse Oximetry 98 Intake & Output 03/21/18 03/21/18 03/22/18 06:59 18:59 06:59 Intake Total 7650 / 7650 3130 / 3130 2165 / 2165 Output Total 2830 / 2830 200 / 200 900 / 900 Balance 4820 / 4820 2930 / 2930 1265 / 1265 Weight 78.7 kg 100.7 kg Intake: IV 2650 / 2650 1400 / 1400 2115 / 2115 LR 1000 mL Inj 1,000 ML @ 90 1000 / 1000 mls/hr IV.CONT .Q11H7M [facility] Rx#: [id number] Versed Inj 50 mg In 50 ml @ 2 50 / 50 50 / 50 150 / 150 MG/HR 2 mls/hr IV.CONT TITRATE PRN Rx#:[id number] NS Inj 1,000 ML @ 100 mls/hr IV 1000 / 1000 1000 / 1000 .CONT .Q10H DON Rx#:[id number] Alburx 5% Inj 500 ML @ 500 mls/ 500 / 500 hr IV.SIG UNSCH X1 PRN Rx#: [id number] NS Inj 1,000 ML @ 999 mls/hr IV 1000 / 1000 .SIG .Q1H1M DON Rx#:[id number] Vancomycin Inj 1,500 MG In NS 515 / 515 Inj 500 ML @ 250 mls/hr IV.SIG Q12H DON Rx#:[id number] Ancef Inj 2,000 MG In NS Inj 80 200 / 200 ML @ 200 mls/hr IV.SIG Q8H DON Rx#:[id number] Rocephin Inj 1,000 MG In NS Inj 100 / 100 100 / 100 100 ML @ 200 mls/hr IV.SIG Q12H DON Rx#:[id number] fentaNYL 10 mcg/mL Premix Drip 250 / 250 250 / 250 2,500 mcg In 250 ml @ 50 MCG/HR 5 mls/hr IV.SIG TITRATE PRN Rx #:[id number] Tube Irrigant 50 / 50 Anesthesia Amount 5000 / 5000 1700 / 1700 Other 30 / 30 Rbc As-3 Leukoreduced Unit 30 / 30 [id number] Intake (Blood Product) Amt 0 / 0 Rbc As-3 Leukoreduced Unit 0 / 0 [id number] Rbc As-3 Leukoreduced Unit 0 / 0 [id number] Rbc As-3 Leukoreduced Unit 0 / 0 [id number] Output: Estimated Blood Loss 800 / 800 200 / 200 200 / 200 Urine Amount (Catheter) 1600 / 1600 500 / 500 Indwelling Urethral Catheter 1600 / 1600 500 / 500 Gastric Drainage 30 / 30 100 / 100 Orogastric Tube 30 / 30 100 / 100 Wound Vac Amount 400 / 400 100 / 100 Left Ankle 400 / 400 100 / 100 Other: Mode Setting Left Ankle Continuous Continuous Continuous Left Knee Continuous Continuous Continuous Right Wrist Continuous Continuous Continuous # Bowel Movements 0 0 Narrative: Left upper extremity sling in place. Left lower extremity: Clean dry dressings over posterior hip. External fixator and wound VAC in place. Appropriate wound VAC seal. Mild drainage from heel with clean dressings. Good capillary refills - Urinary Catheter Management Indwelling Urethral Catheter Cath placed during this visit: yes Reason for continuing: Hourly intake/output Insertion date: 03/20/18 Insertion time: 15:31 Results - Labs CBC & Chem 7: 03/22/18 02:50 03/22/18 02:50 Laboratory Results - last 24 hr 03/20/18 03/20/18 03/21/18 13:15 17:50 09:40 WBC RBC Hgb Hct MCV MCH MCHC RDW Plt Count MPV Prelim Diff (Auto) WBC Differential Seg Neuts % (Manual) Band Neuts % (Manual) Lymphocytes % (Manual) Monocytes % (Manual) Eosinophils % (Manual) Basophils % (Manual) Abs Neuts (Manual) Differential Comment Platelet Estimate Platelet Morphology RBC Morphology Puncture Site Drawn in or Patient Temperature 98.6 O2 Saturation 97 ABG pH 7.34 L ABG pCO2 49 H ABG pO2 309 H ABG HCO3 26 ABG O2 Content 12.2 ABG Base Excess 0.5 ABG Methemoglobin 1.5 Daniel Test Present Hemoglobin 8.4 L Carboxyhemoglobin 1.1 O2 Delivery Device Or Vent Setting Inspired O2 90 Critical Value No Sodium Potassium Chloride Carbon Dioxide Anion Gap BUN Creatinine Estimated GFR Random Glucose Calcium Prot Corrected Calcium Total Protein Blood Type O Negative Antibody Screen Negative MTS Gel Crossmatch See Detail See Detail Bld Prod Order Comment 03/21/18 03/21/18 03/21/18 11:12 15:00 15:25 WBC RBC Hgb 7.6 L Hct 21.8 L MCV MCH MCHC RDW Plt Count MPV Prelim Diff (Auto) WBC Differential Seg Neuts % (Manual) Band Neuts % (Manual) Lymphocytes % (Manual) Monocytes % (Manual) Eosinophils % (Manual) Basophils % (Manual) Abs Neuts (Manual) Differential Comment Platelet Estimate Platelet Morphology RBC Morphology Puncture Site Drawn in or Patient Temperature 98.6 O2 Saturation 97 ABG pH 7.40 ABG pCO2 42 ABG pO2 310 H ABG HCO3 25 ABG O2 Content 10.8 L ABG Base Excess 1.0 ABG Methemoglobin 1.7 Daniel Test Present Hemoglobin 7.3 L* Carboxyhemoglobin 1.3 O2 Delivery Device Ventilator Vent Setting Or settings Inspired O2 Critical Value Yes Sodium Potassium Chloride Carbon Dioxide Anion Gap BUN Creatinine Estimated GFR Random Glucose Calcium Prot Corrected Calcium Total Protein Blood Type Antibody Screen MTS Gel Crossmatch See Detail Bld Prod Order Comment 03/21/18 03/22/18 03/22/18 15:35 02:50 02:50 WBC 3.5 L RBC 2.77 L Hgb 8.7 L Hct 24.6 L MCV 88.6 MCH 31.3 MCHC 35.4 RDW 15.7 Plt Count 92 L MPV 7.5 Prelim Diff (Auto) Slide review pending WBC Differential Manual diff final Seg Neuts % (Manual) 66 Band Neuts % (Manual) 19 H Lymphocytes % (Manual) 10 Monocytes % (Manual) 3 Eosinophils % (Manual) 1 Basophils % (Manual) 1 Abs Neuts (Manual) 3.0 Differential Comment . Platelet Estimate Low L Platelet Morphology Normal RBC Morphology Normal Puncture Site Patient Temperature O2 Saturation ABG pH ABG pCO2 ABG pO2 ABG HCO3 ABG O2 Content ABG Base Excess ABG Methemoglobin Daniel Test Hemoglobin Carboxyhemoglobin O2 Delivery Device Vent Setting Inspired O2 Critical Value Sodium 147 H Potassium 3.9 Chloride 111 H Carbon Dioxide 30.6 Anion Gap 5 BUN 12 Creatinine 1.41 H Estimated GFR 43 L Random Glucose 124 H Calcium 7.0 L* Prot Corrected Calcium 8.8 Total Protein 4.0 L Blood Type Antibody Screen MTS Gel Crossmatch See Detail Bld Prod Order Comment - Imaging Impressions Ankle CT 03/21/18 00:00 CONCLUSION: 1. Markedly comminuted distal tibia fracture. External fixation in place. Fracture involves the distal tibiofibular syndesmosis and the tibiotalar joint. There is evidence of disruption of the ankle mortise. 2. Comment distal fibular fracture. 3. Prominent medial soft tissue defect. 4. Soft tissue contusion/hematoma as well as muscle tear at the distal gastrocnemius muscle posteriorly. Hip/Pelvis X-Ray 03/21/18 00:00 CONCLUSION: Internal fixation hardware in the acetabulum and proximal femur. Pelvis CT 03/21/18 00:00 CONCLUSION: 1. Left posterior hip dislocation with a severely comminuted fracture of the acetabulum predominately involving the posterior column. 2. Large left hip joint effusion with fat/fluid level 3. Left-sided pelvic retroperitoneal hematoma with no other evidence of pelvic soft tissue injury. Assessment and Plan - Assessment and Plan 1) Left Proximal Humerus Fx/dislocation s/p closed reduction 2) Left Acetabulum Fx/dislocation status post open reduction internal fixation POD 1 3) Left Open Distal Tibia/Fibula Fx s/p I&D and vac placement with Exfix application POD 2 with wound VAC change day 1 Nonweightbearing left lower extremity Maintain wound VAC Continue to maintain sling with no range of motion of left shoulder We will plan on discharge and transfer to [place] tomorrow for free flap of left tibia and fixation of left tibia Disconnect wound VAC prior to transport and clamped Critical care
[2018-03-22] MEDS: Indomethacin 75 MG ER Capsule PO SCH (09:45)
[2018-03-22] MEDS: Famotidine 20 MG Tablet PO SCH ×2 (09:45→20:00)
[2018-03-22] MEDS: Chlorhexidine 0.12% Oral Kit 15 ML UDC OROPHARYNG SCH ×2 (09:45→20:00)
[2018-03-22] MEDS: Senna/Docusate Sodium 8.6/50 MG Tablet PO SCH ×2 (09:45→20:00)
[2018-03-22] MEDS: Enoxaparin Inj 30 MG/0.3 ML Syringe SQ SCH ×2 (10:22→20:00)
[2018-03-22] MEDS: Multivitamin Inj 10 ML, Thiamine Inj 100 MG, Folic Acid Inj 1 MG in Sodium Chlor 0.9% I... IV.SIG SCH (10:22)
[2018-03-22 10:30] LABS: ABG Base Excess -2.8 mmol/L (-2-2); ABG PCO2 54 mmHg (38-42); ABG PO2 94 mmHg (61-120)
[2018-03-22] MEDS: Propofol 1000 mg/100 ml Inj 1,000 MG/100 ML BOTTLE IV.CONT PRN ×2 (11:37→19:39)
[2018-03-22] MEDS ORDERED: Acetaminophen 325 MG Tablet NG/OG PRN (13:16)
[2018-03-22 13:37] LABS: ABG Base Excess 0.6 mmol/L (-2-2); ABG PCO2 35 mmHg (38-42); ABG PO2 110 mmHg (61-120)
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
[2018-03-23] MEDS: ceFAZolin Inj 2,000 MG in Sodium Chlor 0.9% Inj 80 ML IV.SIG SCH ×2 (00:27→08:14)
[2018-03-23] MEDS: Propofol 1000 mg/100 ml Inj 1,000 MG/100 ML BOTTLE IV.CONT PRN ×3 (02:27→19:59)
[2018-03-23 04:34] LABS: ABG Base Excess -0.9 mmol/L (-2-2); ABG PCO2 23 mmHg (38-42); ABG PO2 90 mmHg (61-120)
[2018-03-23] MEDS: Sod Chloride 0.9% Inj 1,000 ML IV.CONT SCH ×3 (04:39→22:38)
[2018-03-23] MEDS: Oral Hygiene Kit OROPHARYNG SCH ×3 (05:32→16:22)
[2018-03-23] MEDS ORDERED: Pharmacy Ordered Lab Info OTHER ONE (05:45)
[2018-03-23 06:09] LABS: Hemoglobin 7.1 gm/dL (13.0-17.0); Mean Corpuscular HGB Conc 34.6 % (32.0-36.0); Mean Corpuscular Hemoglobin 31.1 pg (27.0-34.0); Mean Corpuscular Volume 89.9 fL (80.0-100.0); Mean Platelet Volume 7.6 fL (7.0-11.0); Platelet Count 86 th/mm3 (150-450); Red Blood Count 2.29 mil/mm3 (4.50-5.90); Red Cell Distribution Width 15.4 % (11.6-17.2); White Blood Count 0.4 th/mm3 (4.0-11.0)
[2018-03-23] MEDS: Vancomycin Inj 1,500 MG in Sodium Chlor 0.9% Inj 500 ML IV.SIG SCH (06:11)
[2018-03-23 06:17] LABS: Hematocrit 20.6 % (39.0-51.0)
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
[2018-03-23 06:37] LABS: Calcium 6.7 mg/dL (8.5-10.1); Carbon Dioxide 23.9 meq/L (21.0-32.0)
[2018-03-23 06:39] LABS: Potassium 2.9 meq/L (3.5-5.1)
[2018-03-23] MEDS ORDERED: Magnesium Oxide 400 MG Tablet PO PRN ×2 (07:13→07:41)
[2018-03-23] MEDS ORDERED: Potassium Phosphate Inj 30 MMOL in Sodium Chlor 0.9% Inj 250 ML IV.SIG PRN ×2 (07:13→07:41)
[2018-03-23] MEDS ORDERED: Sodium Phosphate Inj 30 MMOL in Sodium Chlor 0.9% Inj 250 ML IV.SIG PRN ×2 (07:13→07:41)
[2018-03-23] MEDS ORDERED: Magnesium Sulfate Inj 4 GM in Sodium Chlor 0.9% Inj 92 ML IV.SIG PRN ×2 (07:13→07:41)
[2018-03-23] MEDS ORDERED: Potassium Phosphate 500 MG Soluble Tablet PO PRN ×4 (07:13→07:41)
[2018-03-23] MEDS ORDERED: Potassium Chlor 40 mEq Premix 40 MEQ/100 ML PIGGYBACK IV.SIG PRN ×4 (07:13→07:41)
[2018-03-23] MEDS ORDERED: Potassium Chloride 25 MEQ Effervescent Tablet PO PRN ×2 (07:13→07:41)
[2018-03-23] MEDS ORDERED: Potassium Chlor 20 mEq Premix 20 MEQ/100 ML PIGGYBACK IV.SIG PRN ×4 (07:13→07:41)
[2018-03-23] MEDS ORDERED: Magnesium Sulfate Inj 2 GM in Sodium Chlor 0.9% Inj 96 ML IV.SIG PRN ×2 (07:13→07:41)
[2018-03-23] MEDS: Chlorhexidine 0.12% Oral Kit 15 ML UDC OROPHARYNG SCH ×2 (08:14→20:00)
[2018-03-23] MEDS: Senna/Docusate Sodium 8.6/50 MG Tablet PO SCH ×2 (08:15→19:59)
[2018-03-23] MEDS: Famotidine 20 MG Tablet PO SCH ×2 (08:15→19:59)
[2018-03-23] MEDS: Indomethacin 75 MG ER Capsule PO SCH (08:15)
[2018-03-23 08:26] LABS: Lymphocytes 32 % (9-44); Monocytes 8 % (0-8); Platelet Morphology Normal (Normal)
[2018-03-23] MEDS: Multivitamin Inj 10 ML, Thiamine Inj 100 MG, Folic Acid Inj 1 MG in Sodium Chlor 0.9% I... IV.SIG SCH (08:47)
[2018-03-23] MEDS ORDERED: Albumin Human 5% Inj 250 ML IV.SIG ONE (09:29)
[2018-03-23] MEDS ORDERED: Potassium Chlor 20 mEq Premix 20 MEQ/100 ML PIGGYBACK IV.SIG ONE (09:36)
[2018-03-23 10:27] LABS: Albumin 1.5 g/dL (3.4-5.0)
[2018-03-23 10:29] LABS: Total Protein 4.1 g/dL (6.4-8.2)
[2018-03-23] MEDS: fentaNYL 10 mcg/mL Premix Drip 2,500 MCG/250 ML BAG IV.SIG PRN (12:02)
--- NOTE | 2018-03-23 12:15 | XR ---
EXAM DATE: 03/23/2018 12:09 PM EDT AGE/SEX: 42 years / Male INDICATIONS: Evaluate central line placement CLINICAL DATA: This is the patient's subsequent encounter. Patient reports that signs and symptoms h ave been present for 2 days and indicates a pain score of Nonresponsive. MEDICAL/SURGICAL HISTORY: Non-responsive. Non-responsive. COMPARISON: [facility] [place], CHEST 1V SINGLE AP, 03/23/2018. . FINDINGS: A single AP view of the chest demonstrates an endotracheal tube with the tip 5 cm from the brian. Na sogastric tube courses off the inferior margin of the film. Right subclavian central line. Tip near t he cavoatrial junction. No pneumothorax. Left basilar consolidation with suspected small left effusio n is unchanged. Heart is normal in size. Right lung is clear. CONCLUSION: Right subclavian central line without pneumothorax. Unchanged left lower lobe infiltrate and suspecte d small left effusion. Electronically signed by: Tony Cooper MD 03/23/2018 12:13 PM EDT
--- NOTE | 2018-03-23 12:28 | P.PNOP ---
Subjective Interval history: POD 2 s/p ORIF left acetabulum s/p I&D with exfix left distal tibfib intubated/sedated. no changes Physical Exam Vital signs: Vital Signs 03/22/18 16:00 03/22/18 16:10 03/22/18 19:39 Temperature 100.5 F H Pulse Rate 79 77 Respiratory Rate 18 19 18 Blood Pressure 95/51 L Pulse Oximetry 98 100 98 03/22/18 19:45 03/22/18 20:00 03/22/18 23:52 Temperature 100.6 F H Pulse Rate 75 78 Respiratory Rate 18 24 18 Blood Pressure 102/52 L Pulse Oximetry 92 L 98 03/23/18 00:00 03/23/18 03:34 03/23/18 03:35 Temperature 100.0 F H Pulse Rate 76 81 Respiratory Rate 18 22 22 Blood Pressure 100/54 L Pulse Oximetry 97 100 03/23/18 04:00 03/23/18 08:00 03/23/18 08:13 Temperature 100.9 F H 100.0 F H Pulse Rate 88 89 Respiratory Rate 22 16 16 Blood Pressure 134/62 88/52 L Pulse Oximetry 96 96 96 03/23/18 08:23 03/23/18 09:00 03/23/18 09:35 Temperature 99.5 F Pulse Rate 90 89 88 Respiratory Rate 16 16 Blood Pressure 90/46 L Pulse Oximetry 03/23/18 09:50 03/23/18 10:10 03/23/18 10:23 Temperature 100.1 F H 100 F H 99.8 F H Pulse Rate 78 78 78 Respiratory Rate 16 16 16 Blood Pressure 91/52 L 93/53 L 94/56 L Pulse Oximetry 99 99 98 03/23/18 12:06 Temperature Pulse Rate Respiratory Rate 20 Blood Pressure Pulse Oximetry 98 Intake & Output 03/22/18 03/23/18 03/23/18 18:59 06:59 18:59 Intake Total 3526.2 / 3526.2 2935 / 2935 550 / 550 Output Total 600 / 600 450 / 450 Balance 2926.2 / 2926.2 2485 / 2485 550 / 550 Weight 105.5 kg Intake: IV 3496.2 / 3496.2 2815 / 2815 450 / 450 LR 1000 mL Inj 1,000 ML @ 125 1000 / 1000 2000 / 2000 mls/hr IV.CONT .Q8H DON Rx#: [id number] Versed Inj 50 mg In 50 ml @ 2 20 / 20 MG/HR 2 mls/hr IV.CONT TITRATE PRN Rx#:[id number] Diprivan 1000 mg/100 ml Inj 1, 200 / 200 100 / 100 000 mg In 100 ml @ 5 MCG/KG/MIN 3.021 mls/hr IV.CONT TITRATE PRN Rx#:[id number] LR 1000 mL Inj 1,000 ML @ Wide 1000 / 1000 Open IV.SIG BOLUS ONE Rx#: [id number] MVI-12 Inj 10 ML Thiamine Inj 511.2 / 511.2 100 MG Folvite Inj 1 MG In NS Inj 500 ML @ 127.8 mls/hr IV. SIG DAILY DON Rx#:[id number] KCl 20 mEq Premix Inj 20 meq In 100 / 100 100 ml @ 50 mls/hr IV.SIG Q2H PRN Rx#:[id number] Vancomycin Inj 1,500 MG In NS 515 / 515 515 / 515 Inj 500 ML @ 250 mls/hr IV.SIG Q12H DON Rx#:[id number] Ancef Inj 2,000 MG In NS Inj 80 200 / 200 100 / 100 ML @ 200 mls/hr IV.SIG Q8H [facility] Rx#:[id number] fentaNYL 10 mcg/mL Premix Drip 250 / 250 250 / 250 2,500 mcg In 250 ml @ 50 MCG/HR 5 mls/hr IV.SIG TITRATE PRN Rx #:[id number] Tube Irrigant 30 / 30 120 / 120 Other 100 / 100 Rbc As-3 Leukoreduced Unit 50 / 50 [id number] Rbc Cp2d Leukoreduced Unit 50 / 50 [id number] Intake (Blood Product) Amt 0 / 0 Rbc As-3 Leukoreduced Unit 0 / 0 [id number] Rbc Cp2d Leukoreduced Unit 0 / 0 [id number] Output: Urine Amount (Catheter) 325 / 325 400 / 400 Indwelling Urethral Catheter 325 / 325 400 / 400 Gastric Drainage 25 / 25 Orogastric Tube 25 / 25 Wound Vac Amount 250 / 250 50 / 50 Left Ankle 250 / 250 50 / 50 Other: Mode Setting Left Ankle Continuous Continuous Continuous Left Knee Continuous # Bowel Movements 0 0 Narrative: intubated/sedated LLE:; dressings clean and dry. intact. +knee brace. +vac. good seal. +exfix LUE: +sling. - Urinary Catheter Management Indwelling Urethral Catheter Cath placed during this visit: yes Reason for continuing: Hourly intake/output Insertion date: 03/20/18 Insertion time: 15:31 Results - Labs CBC & Chem 7: 03/23/18 05:55 03/23/18 05:55 Laboratory Results - last 24 hr 03/20/18 03/21/18 03/22/18 17:50 15:35 13:26 WBC RBC Hgb Hct MCV MCH MCHC RDW Plt Count MPV Prelim Diff (Auto) WBC Differential Seg Neuts % (Manual) Band Neuts % (Manual) Lymphocytes % (Manual) Monocytes % (Manual) Abs Neuts (Manual) Differential Comment Platelet Estimate Platelet Morphology Puncture Site Art line Patient Temperature 98.6 O2 Saturation 96 ABG pH 7.45 H ABG pCO2 35 L ABG pO2 110 ABG HCO3 24 ABG O2 Content 12.1 ABG Base Excess 0.6 ABG Methemoglobin 1.4 Hemoglobin 8.8 L Carboxyhemoglobin 1.4 O2 Delivery Device Ventilator Vent Setting Inspired O2 50 Critical Value No Sodium Potassium Chloride Carbon Dioxide Anion Gap BUN Creatinine Estimated GFR Random Glucose Calcium Prot Corrected Calcium Total Bilirubin Direct Bilirubin Indirect Bilirubin AST ALT Alkaline Phosphatase Total Protein Albumin Vancomycin Trough Blood Type Antibody Screen MTS Gel Crossmatch See Detail See Detail 03/23/18 03/23/18 03/23/18 04:22 05:55 05:55 WBC 0.4 L RBC 2.29 L Hgb 7.1 L Hct 20.6 L* MCV 89.9 MCH 31.1 MCHC 34.6 RDW 15.4 Plt Count 86 L MPV 7.6 Prelim Diff (Auto) Manual diff required WBC Differential Manual diff final Seg Neuts % (Manual) 32 Band Neuts % (Manual) 28 H Lymphocytes % (Manual) 32 Monocytes % (Manual) 8 Abs Neuts (Manual) 0.2 L* Differential Comment . Platelet Estimate Low L Platelet Morphology Normal Puncture Site Art line Patient Temperature 98.6 O2 Saturation 96 ABG pH 7.57 H* ABG pCO2 23 L* ABG pO2 90 ABG HCO3 21 L ABG O2 Content 11.5 L ABG Base Excess -0.9 ABG Methemoglobin 1.1 Hemoglobin 8.4 L Carboxyhemoglobin 1.3 O2 Delivery Device Ventilator Vent Setting Prvc / ac / Inspired O2 35 Critical Value Yes Sodium 144 Potassium 2.9 L* D Chloride 112 H Carbon Dioxide 23.9 Anion Gap 8 BUN 18 Creatinine 2.48 H Estimated GFR 28 L Random Glucose 127 H Calcium 6.7 L* Prot Corrected Calcium 8.4 L Total Bilirubin Direct Bilirubin Indirect Bilirubin AST ALT Alkaline Phosphatase Total Protein 4.0 L Albumin Vancomycin Trough Blood Type Antibody Screen MTS Gel Crossmatch 03/23/18 03/23/18 03/23/18 05:55 05:55 08:15 WBC RBC Hgb Hct MCV MCH MCHC RDW Plt Count MPV Prelim Diff (Auto) WBC Differential Seg Neuts % (Manual) Band Neuts % (Manual) Lymphocytes % (Manual) Monocytes % (Manual) Abs Neuts (Manual) Differential Comment Platelet Estimate Platelet Morphology Puncture Site Patient Temperature O2 Saturation ABG pH ABG pCO2 ABG pO2 ABG HCO3 ABG O2 Content ABG Base Excess ABG Methemoglobin Hemoglobin Carboxyhemoglobin O2 Delivery Device Vent Setting Inspired O2 Critical Value Sodium Potassium Chloride Carbon Dioxide Anion Gap BUN Creatinine Estimated GFR Random Glucose Calcium Prot Corrected Calcium Total Bilirubin 3.2 H Direct Bilirubin 2.7 H Indirect Bilirubin 0.5 AST 183 H ALT 56 Alkaline Phosphatase 53 Total Protein 4.1 L Albumin 1.5 L Vancomycin Trough 33.9 H Blood Type O Negative Antibody Screen Negative MTS Gel Crossmatch See Detail - Imaging Impressions Chest X-Ray 03/23/18 00:00 CONCLUSION: 1. Interval development of left lower lobe airspace disease and probable trace pleural effusion. Chest X-Ray 03/23/18 11:31 CONCLUSION: Right subclavian central line without pneumothorax. Unchanged left lower lobe infiltrate and suspected small left effusion. Assessment and Plan - Assessment and Plan 1) Left Proximal Humerus Fx/dislocation s/p closed reduction 2) Left Acetabulum Fx/dislocation status post open reduction internal fixation POD 2 3) Left Open Distal Tibia/Fibula Fx s/p I&D and vac placement with Exfix application POD 3 with wound VAC change day 2 Nonweightbearing left lower extremity Maintain wound VAC Continue to maintain sling with no range of motion of left shoulder We will plan on discharge and transfer to [facility] for free flap of left tibia and fixation of left tibia Disconnect wound VAC prior to transport and clamped Critical care
--- NOTE | 2018-03-23 12:37 | P.OP ---
Preoperative Diagnosis: Multitrauma Postoperative Diagnosis: Multitrauma Date of procedure: 03/23/18 Procedure: Right subclavian central line insertion Anesthesia: none Surgeon: Diana Zhang MD Estimated blood loss (mL): 1 Operation and Findings: Patient right subclavian area was sterilely prepped and draped using the usual technique. She was placed in Trendelenburg position. Patient's right subclavian vein was cannulated using the landmark technique-using modified Seldinger technique a triple-lumen catheter was inserted to 18 cm. There is good flush and good blood return.Secured line using 3-0 silk .Chest x-ray shows no pneumothorax good placement of the line
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
[2018-03-23] MEDS: Enoxaparin Inj 30 MG/0.3 ML Syringe SQ SCH (14:48)
[2018-03-23 15:45] LABS: INR 0.9 Ratio; Prothrombin Time 9.3 sec (9.8-11.6)
[2018-03-23 15:46] LABS: Activated Partial Thrombo Time 28.2 sec (24.3-30.1)
[2018-03-23] MEDS: Heparin - SQ 10,000 UNITS/ML Vial SQ SCH ×2 (16:22→19:59)
[2018-03-23 17:44] LABS: Baso % (Auto) 0.9 % (0.0-2.0); Eos # (Auto) 0.1 th/mm3 (0.0-0.4); Eos % (Auto) 8.1 % (0.0-4.0); Hematocrit 26.3 % (39.0-51.0); Hemoglobin 9.4 gm/dL (13.0-17.0); Lymph # (Auto) 0.4 th/mm3 (1.0-4.8); Lymph % (Auto) 40.7 % (9.0-44.0); Mean Corpuscular HGB Conc 35.6 % (32.0-36.0); Mean Corpuscular Hemoglobin 31.6 pg (27.0-34.0); Mean Corpuscular Volume 88.9 fL (80.0-100.0); Mono # (Auto) 0.2 th/mm3 (0.0-0.9); Mono % (Auto) 17.1 % (0.0-8.0); Neut # (Auto) 0.4 th/mm3 (1.8-7.7); Neut % (Auto) 33.2 % (16.0-70.0); Platelet Count 87 th/mm3 (150-450); Red Blood Count 2.96 mil/mm3 (4.50-5.90); Red Cell Distribution Width 15.5 % (11.6-17.2); White Blood Count 1.1 th/mm3 (4.0-11.0)
[2018-03-23 18:07] LABS: Calcium 7.1 mg/dL (8.5-10.1); Carbon Dioxide 21.8 meq/L (21.0-32.0); Potassium 3.2 meq/L (3.5-5.1)
[2018-03-23 18:17] LABS: Amorphous Sediment,Urine Many /hpf; Bacteria,Urine Occasional /hpf; Clarity,Urine Turbid (Clear); Color,Urine Amber (Yellw/Straw); Glucose,Urine (UA) Negative (Negative); Leukocyte Esterase,Urine Trace (Negative); Nitrite,Urine Negative (Negative); Specific Gravity,Urine 1.018 (1.002-1.035)
[2018-03-23 18:20] LABS: Bilirubin,Urine Large (Negative); Ictotest,Urine Positive (Negative)
[2018-03-23 18:29] LABS: Total Protein 4.5 g/dL (6.4-8.2)
[2018-03-23 19:02] LABS: Eosinophils 7 % (0-4); Lymphocytes 57 % (9-44); Monocytes 4 % (0-8)
[2018-03-23 19:04] LABS: Acanthocytes Occ; Dohle Bodies Present; Platelet Morphology Normal (Normal)
[2018-03-23] MEDS: Potassium Chlor 20 mEq Premix 20 MEQ/100 ML PIGGYBACK IV.SIG SCH ×2 (20:18→22:38)
[2018-03-24] MEDS: Propofol 1000 mg/100 ml Inj 1,000 MG/100 ML BOTTLE IV.CONT PRN ×5 (00:10→22:46)
[2018-03-24] MEDS: fentaNYL 10 mcg/mL Premix Drip 2,500 MCG/250 ML BAG IV.SIG PRN ×3 (00:11→20:12)
[2018-03-24] MEDS: Oral Hygiene Kit OROPHARYNG SCH ×5 (00:11→23:25)
[2018-03-24 05:50] LABS: ABG PCO2 31 mmHg (38-42); ABG PO2 103 mmHg (61-120)
[2018-03-24 06:17] LABS: Hematocrit 26.3 % (39.0-51.0); Hemoglobin 9.4 gm/dL (13.0-17.0); Mean Corpuscular HGB Conc 35.8 % (32.0-36.0); Mean Corpuscular Hemoglobin 31.9 pg (27.0-34.0); Mean Corpuscular Volume 89.1 fL (80.0-100.0); Platelet Count 97 th/mm3 (150-450); Red Blood Count 2.95 mil/mm3 (4.50-5.90); Red Cell Distribution Width 15.5 % (11.6-17.2); White Blood Count 1.1 th/mm3 (4.0-11.0)
--- NOTE | 2018-03-24 06:45 | P.PNOP ---
Subjective Interval history: POd 3 s/p ORIF left acetabulum s/p left distal tibfib exfix and vac s/p left proximal humerus fx intubated. sedated. unable to be transferred yesterday due to declining status Physical Exam Vital signs: Vital Signs 03/23/18 08:00 03/23/18 08:13 03/23/18 08:23 Temperature 100.0 F H Pulse Rate 89 90 Respiratory Rate 16 16 16 Blood Pressure 88/52 L Pulse Oximetry 96 96 03/23/18 09:00 03/23/18 09:35 03/23/18 09:50 Temperature 99.5 F 100.1 F H Pulse Rate 89 88 78 Respiratory Rate 16 16 Blood Pressure 90/46 L 91/52 L Pulse Oximetry 99 03/23/18 10:10 03/23/18 10:23 03/23/18 12:00 Temperature 100 F H 99.8 F H 99.8 F H Pulse Rate 78 78 68 Respiratory Rate 16 16 20 Blood Pressure 93/53 L 94/56 L 100/58 L Pulse Oximetry 99 98 98 03/23/18 12:06 03/23/18 12:37 03/23/18 16:00 Temperature 98.8 F Pulse Rate 67 Respiratory Rate 20 17 Blood Pressure 104/57 L Pulse Oximetry 98 99 97 03/23/18 16:35 03/23/18 19:39 03/23/18 20:00 Temperature 98.3 F Pulse Rate 64 62 68 Respiratory Rate 16 20 18 Blood Pressure 126/72 Pulse Oximetry 98 96 98 03/24/18 00:00 03/24/18 01:27 03/24/18 03:15 Temperature 98.9 F Pulse Rate 68 71 Respiratory Rate 16 16 16 Blood Pressure 108/62 Pulse Oximetry 98 98 03/24/18 03:47 03/24/18 04:00 03/24/18 04:06 Temperature 98.9 F Pulse Rate 70 Respiratory Rate 16 16 16 Blood Pressure 106/57 L Pulse Oximetry 96 97 Intake & Output 03/23/18 03/23/18 03/24/18 06:59 18:59 06:59 Intake Total 2935 / 2935 2851.2 / 2851.2 2466 / 2466 Output Total 450 / 450 475 / 475 1010 / 1010 Balance 2485 / 2485 2376.2 / 2376.2 1456 / 1456 Weight 105.5 kg 109.3 kg Intake: IV 2815 / 2815 2126.2 / 2126.2 1850 / 1850 LR 1000 mL Inj 1,000 ML @ 75 2000 / 2000 100 / 100 1000 / 1000 mls/hr IV.CONT .[id number] DON Rx# :[id number] Diprivan 1000 mg/100 ml Inj 1, 200 / 200 100 / 100 300 / 300 000 mg In 100 ml @ 5 MCG/KG/MIN 3.021 mls/hr IV.CONT TITRATE PRN Rx#:[id number] Buminate 5% Inj 250 ML @ 250 250 / 250 mls/hr IV.SIG ONCE ONE Rx#: [id number] MVI-12 Inj 10 ML Thiamine Inj 511.2 / 511.2 100 MG Folvite Inj 1 MG In NS Inj 500 ML @ 127.8 mls/hr IV. SIG DAILY DON Rx#:[id number] KCl 20 mEq Premix Inj 20 meq In 200 / 200 200 / 200 100 ml @ 50 mls/hr IV.SIG Q2H DON Rx#:[id number] Vancomycin Inj 1,500 MG In NS 515 / 515 515 / 515 Inj 500 ML @ 250 mls/hr IV.SIG Q12H DON Rx#:[id number] Ancef Inj 2,000 MG In NS Inj 80 100 / 100 100 / 100 ML @ 200 mls/hr IV.SIG Q8H DON Rx#:[id number] Rocephin Inj 1,000 MG In NS Inj 100 / 100 100 / 100 100 ML @ 200 mls/hr IV.SIG Q12H DON Rx#:[id number] fentaNYL 10 mcg/mL Premix Drip 250 / 250 250 / 250 2,500 mcg In 250 ml @ 50 MCG/HR 5 mls/hr IV.SIG TITRATE PRN Rx #:[id number] Tube Feeding 425 / 425 496 / 496 Tube Irrigant 120 / 120 120 / 120 Water Bolus Amount 200 / 200 Other 100 / 100 Rbc As-3 Leukoreduced Unit 50 / 50 [id number] Rbc Cp2d Leukoreduced Unit 50 / 50 [id number] Intake (Blood Product) Amt 0 / 0 Rbc As-3 Leukoreduced Unit 0 / 0 [id number] Rbc Cp2d Leukoreduced Unit 0 / 0 [id number] Output: Urine Amount (Catheter) 400 / 400 425 / 425 1000 / 1000 Indwelling Urethral Catheter 400 / 400 425 / 425 1000 / 1000 Wound Vac Amount 50 / 50 50 / 50 10 / 10 Left Ankle 50 / 50 50 / 50 10 / 10 Other: Mode Setting Left Ankle Continuous Continuous Continuous # Bowel Movements 0 0 0 Narrative: LLE: hip dressings clean and dry. intact. +vac on lower leg. good seal. +exfix of ankle LUE: +sling - Urinary Catheter Management Indwelling Urethral Catheter Cath placed during this visit: yes Reason for continuing: Hourly intake/output Insertion date: 03/20/18 Insertion time: 15:31 Results - Labs CBC & Chem 7: 03/24/18 05:55 03/23/18 16:50 Laboratory Results - last 24 hr 03/20/18 03/21/18 03/23/18 17:50 15:35 05:55 WBC RBC Hgb Hct MCV MCH MCHC RDW Plt Count MPV Prelim Diff (Auto) Neut % (Auto) Lymph % (Auto) [place] % (Auto) Eos % (Auto) Baso % (Auto) Neut # (Auto) Lymph # (Auto) [place] # (Auto) Eos # (Auto) Baso # (Auto) WBC Differential Manual diff final Seg Neuts % (Manual) 32 Band Neuts % (Manual) 28 H Lymphocytes % (Manual) 32 Monocytes % (Manual) 8 Eosinophils % (Manual) Basophils % (Manual) Abs Neuts (Manual) 0.2 L* Differential Comment Dohle Bodies Platelet Estimate Low L Platelet Morphology Normal Acanthocytes (Spur) PT INR APTT Puncture Site Patient Temperature O2 Saturation ABG pH ABG pCO2 ABG pO2 ABG HCO3 ABG O2 Content ABG Base Excess ABG Methemoglobin Hemoglobin Carboxyhemoglobin O2 Delivery Device Vent Setting Inspired O2 Critical Value Sodium Potassium Chloride Carbon Dioxide Anion Gap BUN Creatinine Estimated GFR Random Glucose Lactic Acid Calcium Prot Corrected Calcium Total Bilirubin Direct Bilirubin Indirect Bilirubin AST ALT Alkaline Phosphatase Total Protein Albumin Procalcitonin Urine Color Urine Clarity Urine pH Ur Specific [place] Urine Protein Urine Glucose (UA) Urine Ketones Urine Occult Blood Urine Nitrate Urine Bilirubin Urine Ictotest Urine Urobilinogen Ur Leukocyte Esterase Urine RBC Urine WBC Amorphous Sediment Urine Bacteria Micro UA Comment Ur Microscopic Review Urine Culture Comments Blood Type Antibody Screen MTS Gel Crossmatch See Detail See Detail 03/23/18 03/23/18 03/23/18 05:55 05:55 08:15 WBC RBC Hgb Hct MCV MCH MCHC RDW Plt Count MPV Prelim Diff (Auto) Neut % (Auto) Lymph % (Auto) [place] % (Auto) Eos % (Auto) Baso % (Auto) Neut # (Auto) Lymph # (Auto) [place] # (Auto) Eos # (Auto) Baso # (Auto) WBC Differential Seg Neuts % (Manual) Band Neuts % (Manual) Lymphocytes % (Manual) Monocytes % (Manual) Eosinophils % (Manual) Basophils % (Manual) Abs Neuts (Manual) Differential Comment Dohle Bodies Platelet Estimate Platelet Morphology Acanthocytes (Spur) PT INR APTT Puncture Site Patient Temperature O2 Saturation ABG pH ABG pCO2 ABG pO2 ABG HCO3 ABG O2 Content ABG Base Excess ABG Methemoglobin Hemoglobin Carboxyhemoglobin O2 Delivery Device Vent Setting Inspired O2 Critical Value Sodium Potassium Chloride Carbon Dioxide Anion Gap BUN Creatinine Estimated GFR Random Glucose Lactic Acid Calcium Prot Corrected Calcium 8.4 L Total Bilirubin 3.2 H Direct Bilirubin 2.7 H Indirect Bilirubin 0.5 AST 183 H ALT 56 Alkaline Phosphatase 53 Total Protein 4.0 L 4.1 L Albumin 1.5 L Procalcitonin Urine Color Urine Clarity Urine pH Ur Specific [place] Urine Protein Urine Glucose (UA) Urine Ketones Urine Occult Blood Urine Nitrate Urine Bilirubin Urine Ictotest Urine Urobilinogen Ur Leukocyte Esterase Urine RBC Urine WBC Amorphous Sediment Urine Bacteria Micro UA Comment Ur Microscopic Review Urine Culture Comments Blood Type O Negative Antibody Screen Negative MTS Gel Crossmatch See Detail 03/23/18 03/23/18 03/23/18 14:40 14:40 14:40 WBC RBC Hgb Hct MCV MCH MCHC RDW Plt Count MPV Prelim Diff (Auto) Neut % (Auto) Lymph % (Auto) [place] % (Auto) Eos % (Auto) Baso % (Auto) Neut # (Auto) Lymph # (Auto) [place] # (Auto) Eos # (Auto) Baso # (Auto) WBC Differential Seg Neuts % (Manual) Band Neuts % (Manual) Lymphocytes % (Manual) Monocytes % (Manual) Eosinophils % (Manual) Basophils % (Manual) Abs Neuts (Manual) Differential Comment Dohle Bodies Platelet Estimate Platelet Morphology Acanthocytes (Spur) PT 9.3 L INR 0.9 APTT 28.2 Puncture Site Patient Temperature O2 Saturation ABG pH ABG pCO2 ABG pO2 ABG HCO3 ABG O2 Content ABG Base Excess ABG Methemoglobin Hemoglobin Carboxyhemoglobin O2 Delivery Device Vent Setting Inspired O2 Critical Value Sodium Potassium Chloride Carbon Dioxide Anion Gap BUN Creatinine Estimated GFR Random Glucose Lactic Acid 1.2 Calcium Prot Corrected Calcium Total Bilirubin Direct Bilirubin Indirect Bilirubin AST ALT Alkaline Phosphatase Total Protein Albumin Procalcitonin 2.36 H Urine Color Urine Clarity Urine pH Ur Specific [place] Urine Protein Urine Glucose (UA) Urine Ketones Urine Occult Blood Urine Nitrate Urine Bilirubin Urine Ictotest Urine Urobilinogen Ur Leukocyte Esterase Urine RBC Urine WBC Amorphous Sediment Urine Bacteria Micro UA Comment Ur Microscopic Review Urine Culture Comments Blood Type Antibody Screen MTS Gel Crossmatch 03/23/18 03/23/18 03/23/18 16:50 16:50 16:50 WBC 1.1 L D RBC 2.96 L Hgb 9.4 L D Hct 26.3 L MCV 88.9 MCH 31.6 MCHC 35.6 RDW 15.5 Plt Count 87 L MPV 8.0 Prelim Diff (Auto) Slide review pending Neut % (Auto) 33.2 Lymph % (Auto) 40.7 [place] % (Auto) 17.1 H Eos % (Auto) 8.1 H Baso % (Auto) 0.9 Neut # (Auto) 0.4 L* Lymph # (Auto) 0.4 L [place] # (Auto) 0.2 Eos # (Auto) 0.1 Baso # (Auto) 0.0 WBC Differential Manual diff final Seg Neuts % (Manual) 13 L Band Neuts % (Manual) 18 H Lymphocytes % (Manual) 57 H Monocytes % (Manual) 4 Eosinophils % (Manual) 7 H Basophils % (Manual) 1 Abs Neuts (Manual) 0.3 L* Differential Comment . Dohle Bodies Present H Platelet Estimate Low L Platelet Morphology Normal Acanthocytes (Spur) Occ H PT INR APTT Puncture Site Patient Temperature O2 Saturation ABG pH ABG pCO2 ABG pO2 ABG HCO3 ABG O2 Content ABG Base Excess ABG Methemoglobin Hemoglobin Carboxyhemoglobin O2 Delivery Device Vent Setting Inspired O2 Critical Value Sodium 145 Potassium 3.2 L Chloride 114 H Carbon Dioxide 21.8 Anion Gap 9 BUN 20 H Creatinine 2.64 H Estimated GFR 26 L Random Glucose 122 H Lactic Acid Calcium 7.1 L* Prot Corrected Calcium 8.5 Total Bilirubin Direct Bilirubin Indirect Bilirubin AST ALT Alkaline Phosphatase Total Protein 4.5 L Albumin Procalcitonin Urine Color [place] Urine Clarity Turbid H Urine pH 5.0 Ur Specific [place] 1.018 Urine Protein 100 H Urine Glucose (UA) Negative Urine Ketones Negative Urine Occult Blood Large H Urine Nitrate Negative Urine Bilirubin Large H Urine Ictotest Positive H Urine Urobilinogen Less than 2 Ur Leukocyte Esterase Trace H Urine RBC 5 H Urine WBC 17 H Amorphous Sediment Many H Urine Bacteria Occasional H Micro UA Comment Cath-culture ind Ur Microscopic Review Not Reportable Urine Culture Comments Cath-cult indicated Blood Type Antibody Screen MTS Gel Crossmatch 03/24/18 03/24/18 05:39 05:55 WBC 1.1 L RBC 2.95 L Hgb 9.4 L Hct 26.3 L MCV 89.1 MCH 31.9 MCHC 35.8 RDW 15.5 Plt Count 97 L MPV 8.0 Prelim Diff (Auto) Manual diff required Neut % (Auto) Lymph % (Auto) [place] % (Auto) Eos % (Auto) Baso % (Auto) Neut # (Auto) Lymph # (Auto) [place] # (Auto) Eos # (Auto) Baso # (Auto) WBC Differential Seg Neuts % (Manual) Band Neuts % (Manual) Lymphocytes % (Manual) Monocytes % (Manual) Eosinophils % (Manual) Basophils % (Manual) Abs Neuts (Manual) Differential Comment . Dohle Bodies Platelet Estimate Platelet Morphology Acanthocytes (Spur) PT INR APTT Puncture Site Art line Patient Temperature 98.6 O2 Saturation 96 ABG pH 7.44 H ABG pCO2 31 L ABG pO2 103 ABG HCO3 21 L ABG O2 Content 13.2 ABG Base Excess -3.0 L ABG Methemoglobin 1.1 Hemoglobin 9.6 L Carboxyhemoglobin 1.5 O2 Delivery Device Ventilator Vent Setting Prvc/ac Inspired O2 35 Critical Value No Sodium Potassium Chloride Carbon Dioxide Anion Gap BUN Creatinine Estimated GFR Random Glucose Lactic Acid Calcium Prot Corrected Calcium Total Bilirubin Direct Bilirubin Indirect Bilirubin AST ALT Alkaline Phosphatase Total Protein Albumin Procalcitonin Urine Color Urine Clarity Urine pH Ur Specific [place] Urine Protein Urine Glucose (UA) Urine Ketones Urine Occult Blood Urine Nitrate Urine Bilirubin Urine Ictotest Urine Urobilinogen Ur Leukocyte Esterase Urine RBC Urine WBC Amorphous Sediment Urine Bacteria Micro UA Comment Ur Microscopic Review Urine Culture Comments Blood Type Antibody Screen MTS Gel Crossmatch - Imaging Impressions Abdomen/Pelvis CT 03/23/18 00:00 CONCLUSION: 1. There is been interval orthopedic surgery involving the left hip and left hemipelvis with reduction of the previously seen dislocation of the hip. There is a small volume of hemorrhage within the pelvis bilaterally tracking up the retroperitoneal soft tissues bilaterally. Overall the amount of blood is stable within the pelvis but the retroperitoneal component is new. The retroperitoneal component is quite small. No intraperitoneal hemorrhage. Chest CT 03/23/18 09:30 CONCLUSION: 1. Interval development of small bilateral pleural effusions and associated bibasilar consolidation. 2. Interval reduction of the previously seen left shoulder dislocation. The humeral fracture is stable. Chest X-Ray 03/23/18 11:31 CONCLUSION: Right subclavian central line without pneumothorax. Unchanged left lower lobe infiltrate and suspected small left effusion. Assessment and Plan - Assessment and Plan 1) Left Proximal Humerus Fx/dislocation s/p closed reduction 2) Left Acetabulum Fx/dislocation status post open reduction internal fixation POD 3 3) Left Open Distal Tibia/Fibula Fx s/p I&D and vac placement with Exfix application POD 4 with wound VAC change day 3 Nonweightbearing left lower extremity Maintain wound VAC --> will change at bedside this AM Continue to maintain sling with no range of motion of left shoulder We will plan on discharge and transfer to [place] today for free flap of left tibia and fixation of left tibia once stable enough for transport Disconnect wound VAC prior to transport and clamped Critical care
[2018-03-24 06:48] LABS: Albumin 1.6 g/dL (3.4-5.0); Calcium 7.3 mg/dL (8.5-10.1); Carbon Dioxide 22.5 meq/L (21.0-32.0); Potassium 3.3 meq/L (3.5-5.1); Total Protein 4.7 g/dL (6.4-8.2)
[2018-03-24 07:34] LABS: Eosinophils 15 % (0-4); Lymphocytes 34 % (9-44); Monocytes 12 % (0-8)
[2018-03-24 07:40] LABS: Acanthocytes Occ
[2018-03-24] MEDS: Famotidine 20 MG Tablet PO SCH ×2 (09:16→20:13)
[2018-03-24] MEDS: Heparin - SQ 10,000 UNITS/ML Vial SQ SCH ×2 (09:16→20:13)
[2018-03-24] MEDS: Indomethacin 75 MG ER Capsule PO SCH (09:16)
[2018-03-24] MEDS: Senna/Docusate Sodium 8.6/50 MG Tablet PO SCH ×2 (09:16→20:13)
[2018-03-24] MEDS: Sod Chloride 0.9% Inj 1,000 ML IV.CONT SCH ×2 (09:17→20:13)
[2018-03-24] MEDS: Chlorhexidine 0.12% Oral Kit 15 ML UDC OROPHARYNG SCH ×2 (09:17→20:13)
[2018-03-24] MEDS ORDERED: Potassium Chlor 20 mEq Premix 20 MEQ/100 ML PIGGYBACK IV.SIG ONE (11:00)
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
[2018-03-24 14:45] LABS: Magnesium 2.4 mg/dL (1.5-2.5); Phosphorus 1.6 mg/dL (2.5-4.9)
--- NOTE | 2018-03-24 16:18 | P.RAD ---
Post CT Procedure Prog Note - Pre Procedure Diagnosis (1) Thrombocytopenia - Post Procedure Diagnosis (1) Thrombocytopenia - Procedure Information Procedure Date: 03/24/18 Supervising Radiologist: Nilesh Cerna MD Anesthesia: Local - Plan of Activity Patient to Unit: Critical Care Patient condition: Fair See PACS Report for procedural detail/treatment.
[2018-03-24 16:56] LABS: Amphetamine Urine With Conf Neg (Neg)
[2018-03-24 17:07] LABS: Benzodiazepine Urine With Conf Pos (Neg)
[2018-03-24 18:08] LABS: Iron Stain Bone Marrow Done
[2018-03-25] MEDS: Propofol 1000 mg/100 ml Inj 1,000 MG/100 ML BOTTLE IV.CONT PRN ×6 (02:33→19:39)
[2018-03-25] MEDS: Oral Hygiene Kit OROPHARYNG SCH ×3 (05:10→17:39)
[2018-03-25] MEDS: Sod Chloride 0.9% Inj 1,000 ML IV.CONT SCH (05:11)
--- NOTE | 2018-03-25 05:45 | XR ---
EXAM DATE: 03/25/2018 3:40 AM EDT AGE/SEX: 42 years / Male INDICATIONS: Trauma. CLINICAL DATA: This is the patient's subsequent encounter. Patient reports that signs and symptoms h ave been present for 4 - 6 days and indicates a pain score of Nonresponsive. MEDICAL/SURGICAL HISTORY: Non-responsive. Non-responsive. COMPARISON: [facility], CHEST 1V SINGLE AP, 03/23/2018. . FINDINGS: Endotracheal tube, nasogastric tube and central line are stable in good position. There has been slig ht interval worsening in aeration with increasing hazy bibasilar pleural-parenchymal opacity suggesti ve of increasing layering effusion. Visualized cardiac contours are unchanged. CONCLUSION: Slight interval worsening in aeration. Electronically signed by: Bo Wayne MD 03/25/2018 5:44 AM EDT
[2018-03-25 06:13] LABS: ABG Base Excess -2.1 mmol/L (-2-2); ABG PCO2 26 mmHg (38-42); ABG PO2 85 mmHg (61-120)
[2018-03-25 06:15] LABS: Hematocrit 25.8 % (39.0-51.0); Hemoglobin 8.9 gm/dL (13.0-17.0); Mean Corpuscular HGB Conc 34.4 % (32.0-36.0); Mean Corpuscular Hemoglobin 31.2 pg (27.0-34.0); Mean Corpuscular Volume 90.8 fL (80.0-100.0); Mean Platelet Volume 8.2 fL (7.0-11.0); Platelet Count 115 th/mm3 (150-450); Red Blood Count 2.84 mil/mm3 (4.50-5.90); Red Cell Distribution Width 15.3 % (11.6-17.2); White Blood Count 1.6 th/mm3 (4.0-11.0)
[2018-03-25 06:37] LABS: Alanine Aminotransferase 24 U/L (12-78); Albumin 1.4 g/dL (3.4-5.0); Anion Gap 9 meq/L (5-15); Aspartate Aminotransferase 94 U/L (15-37); Blood Urea Nitrogen 23 mg/dL (7-18); Calcium 7.5 mg/dL (8.5-10.1); Carbon Dioxide 22.8 meq/L (21.0-32.0); Chloride 119 meq/L (98-107); Glomerular Filtration Rate 25 mL/min (>89); Glucose,Random 98 mg/dL (74-106); Potassium 3.3 meq/L (3.5-5.1); Sodium 151 meq/L (136-145)
[2018-03-25 06:39] LABS: Alkaline Phosphatase 104 U/L (45-117)
--- NOTE | 2018-03-25 06:57 | P.PNOP ---
Subjective Interval history: s/p ORIF of left acetabulum s/p open left distal tibia fx s/p left proximal humerus fx intubated/sedated. vac changed yesterday at bedside patient still not stable enough for transfer to [facility] per trauma team Physical Exam Vital signs: Vital Signs 03/24/18 08:00 03/24/18 08:02 03/24/18 09:00 Temperature 99.5 F Pulse Rate 69 73 84 Respiratory Rate 16 16 Blood Pressure 105/58 L Pulse Oximetry 98 97 03/24/18 11:18 03/24/18 12:00 03/24/18 16:38 Temperature 101.1 F H Pulse Rate 110 H Respiratory Rate 16 18 Blood Pressure 135/79 Pulse Oximetry 96 98 94 L 03/24/18 16:43 03/24/18 16:46 03/24/18 20:00 Temperature 100.0 F H Pulse Rate 103 H 72 Respiratory Rate 16 16 16 Blood Pressure 100/59 L Pulse Oximetry 94 L 03/24/18 20:40 03/24/18 21:31 03/25/18 00:00 Temperature 99.0 F Pulse Rate 71 68 Respiratory Rate 16 16 16 Blood Pressure 97/53 L Pulse Oximetry 100 03/25/18 01:39 03/25/18 04:00 03/25/18 04:54 Temperature 99.3 F Pulse Rate 66 70 Respiratory Rate 16 16 16 Blood Pressure 97/54 L Pulse Oximetry 100 99 Intake & Output 03/24/18 03/24/18 03/25/18 06:59 18:59 06:59 Intake Total 2466 / 2466 2300 / 2300 880 / 880 Output Total 1010 / 1010 2450 / 2450 1150 / 1150 Balance 1456 / 1456 -150 / -150 -270 / -270 Weight 109.3 kg 103.4 kg Intake: IV 1850 / 1850 1650 / 1650 300 / 300 LR 1000 mL Inj 1,000 ML @ 75 1000 / 1000 1000 / 1000 mls/hr IV.CONT .[id number] DON Rx# :[id number] Diprivan 1000 mg/100 ml Inj 1, 300 / 300 200 / 200 200 / 200 000 mg In 100 ml @ 5 MCG/KG/MIN 3.021 mls/hr IV.CONT TITRATE PRN Rx#:[id number] KCl 20 mEq Premix Inj 20 meq In 200 / 200 100 / 100 100 ml @ 50 mls/hr IV.SIG ONCE ONE Rx#:[id number] Rocephin Inj 1,000 MG In NS Inj 100 / 100 100 / 100 100 / 100 100 ML @ 200 mls/hr IV.SIG Q12H DON Rx#:[id number] fentaNYL 10 mcg/mL Premix Drip 250 / 250 250 / 250 0 / 0 2,500 mcg In 250 ml @ 50 MCG/HR 5 mls/hr IV.SIG TITRATE PRN Rx #:[id number] Tube Feeding 496 / 496 450 / 450 380 / 380 Tube Irrigant 120 / 120 200 / 200 200 / 200 Output: Urine Amount (Catheter) 1000 / 1000 2400 / 2400 1100 / 1100 Indwelling Urethral Catheter 1000 / 1000 2400 / 2400 1100 / 1100 Wound Vac Amount 10 / 10 50 / 50 50 / 50 Left Ankle 10 / 10 50 / 50 50 / 50 Other: Mode Setting Left Ankle Continuous Continuous Intermittent # Bowel Movements 0 0 0 # Emeses 1 Narrative: LLE: hip dressings clean and dry. intact. +exfix. +CKS. +vac. good seal. LUE: +sling - Urinary Catheter Management Indwelling Urethral Catheter Cath placed during this visit: yes Reason for continuing: Hourly intake/output Insertion date: 03/20/18 Insertion time: 15:31 Results - Labs CBC & Chem 7: 03/25/18 06:08 03/25/18 06:08 Laboratory Results - last 24 hr 03/24/18 03/24/18 03/24/18 05:55 05:55 13:28 WBC RBC Hgb Hct MCV MCH MCHC RDW Plt Count MPV Prelim Diff (Auto) WBC Differential Manual diff final Seg Neuts % (Manual) 27 Band Neuts % (Manual) 9 H Lymphocytes % (Manual) 34 Monocytes % (Manual) 12 H Eosinophils % (Manual) 15 H Basophils % (Manual) 3 H Abs Neuts (Manual) 0.4 L* Differential Comment Platelet Estimate Low L Platelet Morphology Enlarged H Acanthocytes (Spur) Occ H Fibrinogen 554 H Puncture Site Patient Temperature O2 Saturation ABG pH ABG pCO2 ABG pO2 ABG HCO3 ABG O2 Content ABG Base Excess ABG Methemoglobin Daniel Test Hemoglobin Carboxyhemoglobin O2 Delivery Device Vent Setting Inspired O2 Critical Value Sodium 147 H Potassium 3.3 L Chloride 117 H Carbon Dioxide 22.5 Anion Gap 8 BUN 20 H Creatinine 2.57 H Estimated GFR 27 L Random Glucose 109 H Calcium 7.3 L* Prot Corrected Calcium 8.7 Phosphorus Magnesium Total Bilirubin 2.6 H AST 135 H ALT 34 Alkaline Phosphatase 70 Total Protein 4.7 L Albumin 1.6 L Urine Opiates Screen Acetaminophen Ur Barbiturates Screen Ur Amphetamine Screen U Benzodiazepines Scrn Urine Cocaine Screen U Cannabinoids Screen HIV 1&2 Ab/P24 Ag 4thGn 03/24/18 03/24/18 03/24/18 13:28 13:28 13:28 WBC RBC Hgb Hct MCV MCH MCHC RDW Plt Count MPV Prelim Diff (Auto) WBC Differential Seg Neuts % (Manual) Band Neuts % (Manual) Lymphocytes % (Manual) Monocytes % (Manual) Eosinophils % (Manual) Basophils % (Manual) Abs Neuts (Manual) Differential Comment Platelet Estimate Platelet Morphology Acanthocytes (Spur) Fibrinogen Puncture Site Patient Temperature O2 Saturation ABG pH ABG pCO2 ABG pO2 ABG HCO3 ABG O2 Content ABG Base Excess ABG Methemoglobin Dnaiel Test Hemoglobin Carboxyhemoglobin O2 Delivery Device Vent Setting Inspired O2 Critical Value Sodium Potassium Chloride Carbon Dioxide Anion Gap BUN Creatinine Estimated GFR Random Glucose Calcium Prot Corrected Calcium Phosphorus 1.6 L Magnesium 2.4 Total Bilirubin AST ALT Alkaline Phosphatase Total Protein Albumin Urine Opiates Screen Acetaminophen Less than 2.0 L Ur Barbiturates Screen Ur Amphetamine Screen U Benzodiazepines Scrn Urine Cocaine Screen U Cannabinoids Screen HIV 1&2 Ab/P24 Ag 4thGn Nonreactive 03/24/18 03/25/18 03/25/18 14:00 06:00 06:08 WBC RBC Hgb Hct MCV MCH MCHC RDW Plt Count MPV Prelim Diff (Auto) WBC Differential Seg Neuts % (Manual) Band Neuts % (Manual) Lymphocytes % (Manual) Monocytes % (Manual) Eosinophils % (Manual) Basophils % (Manual) Abs Neuts (Manual) Differential Comment Platelet Estimate Platelet Morphology Acanthocytes (Spur) Fibrinogen Puncture Site Right brachial Patient Temperature 98.6 O2 Saturation 95 ABG pH 7.51 H* ABG pCO2 26 L ABG pO2 85 ABG HCO3 21 L ABG O2 Content 15.0 ABG Base Excess -2.1 L ABG Methemoglobin 1.2 Daniel Test Present Hemoglobin 11.2 L Carboxyhemoglobin 1.4 O2 Delivery Device Ventilator Vent Setting See comment Inspired O2 40 Critical Value Yes Sodium 151 H Potassium 3.3 L Chloride 119 H Carbon Dioxide 22.8 Anion Gap 9 BUN 23 H Creatinine 2.74 H Estimated GFR 25 L Random Glucose 98 Calcium 7.5 L Prot Corrected Calcium Phosphorus Magnesium Total Bilirubin 2.1 H AST 94 H ALT 24 Alkaline Phosphatase 104 Total Protein 5.0 L Albumin 1.4 L Urine Opiates Screen Neg Acetaminophen Ur Barbiturates Screen Neg Ur Amphetamine Screen Neg U Benzodiazepines Scrn Pos H Urine Cocaine Screen Neg U Cannabinoids Screen Neg HIV 1&2 Ab/P24 Ag 4thGn 03/25/18 06:08 WBC 1.6 L RBC 2.84 L Hgb 8.9 L Hct 25.8 L MCV 90.8 MCH 31.2 MCHC 34.4 RDW 15.3 Plt Count 115 L MPV 8.2 Prelim Diff (Auto) Manual diff required WBC Differential Seg Neuts % (Manual) Band Neuts % (Manual) Lymphocytes % (Manual) Monocytes % (Manual) Eosinophils % (Manual) Basophils % (Manual) Abs Neuts (Manual) Differential Comment . Platelet Estimate Platelet Morphology Acanthocytes (Spur) Fibrinogen Puncture Site Patient Temperature O2 Saturation ABG pH ABG pCO2 ABG pO2 ABG HCO3 ABG O2 Content ABG Base Excess ABG Methemoglobin Daniel Test Hemoglobin Carboxyhemoglobin O2 Delivery Device Vent Setting Inspired O2 Critical Value Sodium Potassium Chloride Carbon Dioxide Anion Gap BUN Creatinine Estimated GFR Random Glucose Calcium Prot Corrected Calcium Phosphorus Magnesium Total Bilirubin AST ALT Alkaline Phosphatase Total Protein Albumin Urine Opiates Screen Acetaminophen Ur Barbiturates Screen Ur Amphetamine Screen U Benzodiazepines Scrn Urine Cocaine Screen U Cannabinoids Screen HIV 1&2 Ab/P24 Ag 4th Microbiology 03/23/18 16:50 Sputum - Endotracheal Gram Stain - Final 03/23/18 16:50 Sputum - Endotracheal Sputum Culture - Preliminary No growth in 24 hours 03/23/18 16:50 Catheterized Urine Urine Culture - Preliminary No growth in 24 hours 03/23/18 14:30 Blood - Peripheral Aerobic Blood Culture - Preliminary No growth in 1 day 03/23/18 14:30 Blood - Peripheral Anaerobic Blood Culture - Preliminary No growth in 1 day 03/23/18 14:40 Blood - Peripheral Aerobic Blood Culture - Preliminary No growth in 1 day 03/23/18 14:40 Blood - Peripheral Anaerobic Blood Culture - Preliminary No growth in 1 day - Imaging Impressions Chest X-Ray 03/25/18 00:00 CONCLUSION: Slight interval worsening in aeration. Assessment and Plan - Assessment and Plan 1) Left Proximal Humerus Fx/dislocation s/p closed reduction 2) Left Acetabulum Fx/dislocation status post open reduction internal fixation POD 4 3) Left Open Distal Tibia/Fibula Fx s/p I&D and vac placement with Exfix application POD 5 Nonweightbearing left lower extremity Maintain wound VAC --> changed at bedside yesterday Continue to maintain sling with no range of motion of left shoulder patient still unable to be transferred to [facility] per trauma team since not going to [facility] yet, will need repeat I&D of left tibia today consents on chart will plan to repeat I&D today with another vac change
[2018-03-25 08:46] LABS: Eosinophils 8 % (0-4); Lymphocytes 22 % (9-44); Monocytes 21 % (0-8); Promyelocyte 1 % (0-0)
[2018-03-25 08:48] LABS: Platelet Morphology Normal (Normal)
[2018-03-25] MEDS: Chlorhexidine 0.12% Oral Kit 15 ML UDC OROPHARYNG SCH ×2 (09:11→19:39)
[2018-03-25] MEDS: Heparin - SQ 10,000 UNITS/ML Vial SQ SCH ×2 (09:15→18:18)
[2018-03-25] MEDS: Senna/Docusate Sodium 8.6/50 MG Tablet PO SCH (09:15)
[2018-03-25] MEDS: Famotidine 20 MG Tablet PO SCH (09:15)
[2018-03-25] MEDS ORDERED: Sodium Chloride 0.45 % Inj 1,000 ML IV.CONT SCH (09:39)
[2018-03-25] MEDS: Potassium Chlor 10 mEq Premix 10 MEQ/100 ML PIGGYBACK IV.SIG SCH ×2 (10:08→11:20)
--- NOTE | 2018-03-25 12:01 | CT ---
EXAM DATE: 03/24/2018 4:33 PM EDT AGE/SEX: 42 years / Male INDICATIONS: Thrombocytopenia. CLINICAL DATA: This is the patient's initial encounter. Patient reports that signs and symptoms have been present for 1 day and indicates a pain score of Nonresponsive. MEDICAL/SURGICAL HISTORY: Non-responsive. Non-responsive. COMPARISON: No prior exams available for comparison. BIOPSY SITE: Right bone marrow iliac DEVICE(S): 11 gauge Bone marrow biopsy needle One core specimen(s) sent to the laboratory for pathologic evaluation. . . PROCEDURE: CT guided Right bone marrow iliac biopsy Prior to the procedure informed consent was obtained. Any appropriate prior imaging studies were rev iewed. Using automated exposure control and adjustment of the mA and/or kV according to patient size , radiation dose was kept as low as reasonably achievable to obtain optimal diagnostic quality images . DICOM format image data is available electronically for review and comparison. The site was prepped in a sterile fashion. Full sterile technique was used, including cap, mask, aline rile gloves and gown and a large sterile sheet. Hand hygiene and 2% chlorhexidine and/or betadine/al cohol prep was utilized per protocol for cutaneous antisepsis. The skin and subcutaneous tissues wer e infiltrated with local anesthetic solution. With CT guidance the previously identified target was localized. Because the patient was intubated, p rocedure was performed in the right lateral decubitus oblique position. Biopsy was performed using th e prescribed needle as above. Following biopsy marrow aspiration was performed with repeat puncture. Adequate hemostasis was obtained with compression at the puncture site. Follow-up CT scan reveals no hemorrhage. Conscious sedation was performed with the prescribed dosages and duration as above in the presence of an independent trained radiology nurse to assist in the monitoring of the patient. EKG and oximetry remained stable throughout the procedure. The patient tolerated the procedure well and there were no complications. The patient was sent to Radiology Outpatient Unit in stable condition. CONCLUSION: 1. Uncomplicated CT guided bone marrow aspirate. 2. Uncomplicated CT guided bone marrow biopsy. Electronically signed by: Nilesh Cerna MD 03/25/2018 12:00 PM EDT
[2018-03-25] MEDS: fentaNYL 10 mcg/mL Premix Drip 2,500 MCG/250 ML BAG IV.SIG PRN ×2 (12:25→19:39)
[2018-03-25 13:01] VITALS: RESP 12
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
[2018-03-25 18:39] VITALS: O2SAT 98
[2018-03-25 21:01] VITALS: BP 92/51; PULSE 82; TEMP 99.7
--- NOTE | 2018-03-26 08:43 | P.DS ---
Date of admission: 03/20/18 14:27 Primary care physician: UNKNOWN Brief History from admission: S/P MIGUEL DS: Diagnosis - Discharge Diagnosis (1) Humeral head fracture Status: Acute (2) Open fracture of tibia and fibula Status: Acute (3) Degloving injury of left foot Status: Acute (4) Inferior pubic ramus fracture Status: Acute (5) Respiratory failure after trauma Status: Acute (6) Hemolytic anemia Status: Acute (7) Closed left acetabular fracture Status: Acute DS: Summary Hospital Course: 03/20/2019 Patient went immediately after the ED resuscitation to the operating room for orthopedic fixation of the hip and open tib-fib fracture Patient received 2 units of blood and arrives relatively hemodynamically stable on some Levophed to the ICU Left leg is in traction and splinted, patient has a good capillary refill and foot is warm Patient is intubated ventilated and sedated on propofol which is somewhat cardio depressant and patient is dropping his blood pressure therefore he switch to Versed. Hemoglobin at this point appears to be stable and patient might need some Levophed for his systemic inflammatory response systemic vasodilatation and decreased systemic vascular resistance as would be expected with this massive extent of injury 03/21 Patient is postop from status post acetabulum fixation He received 2 units of blood in the OR and his hemoglobin now 7.3 we will give him 2 more units He is hemodynamically normal with adequate urine output He remains intubated and sedated Patient now has a good DP pulse of the left lower extremity which is well dopplerable and also has a good capillary refill time She has been ordered and radiation by orthopedic surgery I will proceed with this Plan to switch Versed to propofol and extubation tomorrow morning 03/22 Patient slightly hypotensive in the morning He has leukopenia and thrombocytopenia likely secondary to SIRS His sodium is 147 creatinine 1.4-he is slightly hypovolemic-1 L of LR fluid bolus was given His hemoglobin is now stable with a 8.3 She has respiratory acidosis-and the respiratory rate has been increased Patient was agitated not following commands at the spontaneous awakening trial An overall clinically I do not believe he is ready to be extubated I discussed with orthopedic surgeon who arranged transfer to [facility] for a free flap-the plastics and orthopedic teams in [facility] would like to transfer to [facility] Patient will need to be transferred to a trauma service-in [facility] trauma team will be contacted Patient has been started on propofol 03/23 Pressure is borderline with systolic 90 mm MAP 65 Hemoglobin is 7 patient shows a respiratory alkalosis on the ABG no base deficit His white cell count is 0.4 for today with 28 bands His renal function is worsening and his bilirubin is high as well-patient is essentially in multiorgan failure Patient shows typical SIRS pattern I doubt any infection-also discussed with Dr. Landaverde from orthopedic surgery the last washout did not show ischemic or digitalized part of his left lower extremity wound the foot is also well perfused with a good dopplerable DP pulse Patient is a soft abdomen and is tolerating tube feeds-I doubt any delayed abdominal injuries but regardless we will proceed with a CT scan of the abdomen and pelvis and chest Increase his antibiotic coverage with Rocephin-also pancultured the patient Will DC vancomycin as his renal toxic CVP line was inserted for the patient in case he needs to be on vasoactive drug With this clinical picture will not transfer the patient [facility] and I notified Dr. Landaverde about my decision The patient healthcare proxy was updated about patient's clinical picture 03/24/2018 Neurologically patient is intact however he is intubated and ventilated in mildly sedated Hemodynamically patient has initially regain some stability but with additional surgeries required reevaluation. Patient is on small dose Levophed however several factors are in place at this time Patient has SIRS with increased capillary permeability large third space volume loss and other sequela as a consequence of initial trauma hemorrhagic shock volume loss and administration of blood and blood products In addition patient has developed hemolytic anemia and agranulocytosis which is combination of systemic inflammatory response mediated products and medications. The most common causes of hemolytic induced anemia are clearly sepsis, systemic inflammatory response, administration of medications like vancomycin, Indocin rifampin, other nonsteroidal anti-inflammatory agents Agranulocytosis as part of the syndrome can also be caused by number of medications like antiepileptics, propylthiouracil penicillins CHARLES inhibitors and nonsteroidal anti-inflammatories as above noted with hemolytic anemia, antipsychotics, and such. In addition this patient has liver cirrhosis which clearly does not help the whole picture Based on all of the above offending agents such as vancomycin nonsteroidal anti- inflammatories antiepileptics and some of the antibiotics have been removed. Patient will not receive Ofirmev due to the large amount of Tylenol over short period of time. All this should gradually resolve patient's hemolytic and leukopenic picture. The reason for high immature cells and bands is not a septic source but the patient's attempt to raise his white count in the face of leukopenia. Vascularly patient is intact he has excellent perfusion of the foot with palpable pulses 03/25/2018 Patient improving gradually Neurologically intact but sedated on propofol and fentanyl with decreasing doses the same Hemodynamically patient stable Bilateral breath sounds remains ventilatory dependent at this time with good PO2 FiO2 gradient on assist control ventilation 40% FiO2 Bilateral pulmonary infiltrates in lower lobes left more than right more prominent today and patient might have aspirated for he vomited apparently in the middle of the night Renal function is still slightly precarious creatinine and BUN are elevated and this is reflection of the initial insult systemic inflammatory response and ongoing changes but in the future creatinine should come back down gradually Hematologic fixture is improving and white count is slowly improving while the hemoglobin remained stable Blood smear results are pending and bone marrow biopsy performed yesterday results are pending as well HIV negative Spoken to the trauma surgeon and or [facility] and patient will be transferred there for free graft of the denuded area of tibia on the left INJURIES: Aspiration LEFT humerus dislocation w/ humeral head fx LEFT hip dislocation with acetabulum fx LEFT inferior pubic rami fx LEFT anterior tibial artery lac Open LEFT distal tib/fib fx LEFT foot degloving PMHx: ETOH abuse Aspiration, Respiratory failure following trauma, SIRS Supportive care 03/20: Intubated Vent bundle Fentanyl/Propofol gtts Rass -2 Chlorhexidine oral care Q4H Duonebs Low grade temps Daily ABGs CXR shows worsening aeration LEFT humerus dislocation w/ humeral head fx, LEFT hip dislocation with acetabulum fx, LEFT inferior pubic rami fx, Open LEFT distal tib/fib fx, LEFT foot degloving, LEFT anterior tibial artery lac Orthopedics consulted 03/20: Left humerus closed reduction of anterior inferior dislocation. Left hip closed reduction of posterior dislocation. Placement of left distal tibia traction pin. Left distal tibia I&D of open fx. Left distal tibia application of multiplanar external fixator. Left distal tibia application of negative pressure VAC therapy. 03/21: Left proximal femur osteotomy, ORIF left acetabulum posterior column/ posterior wall fracture 03/21: LEFT hip radiation Transfer to [facility] for free flap of LLE LLE well perfused, pulses present Pain control Bowel regimen IV Rocephin Heparin 500 units SQ BID ARF/MARY Supportive care UOP adequate Continue Ansari catheter for accurate I&Os 0.45% NS @ 80mL/H Creatinine up to 2.74 Avoid nephrotoxins Keep MAP > 65mmHg Consider Renal consult if UOP decreases/creatinine rises further Hemolytic anemia and agranulocytosis Supportive care Neutropenic precautions Avoid offending medication agents WBC smear sent for pathology HIV negative Hgb stable today Acetaminophen level < 2 Expanded tox screen pending 03/24: Bone marrow bx LINES: 03/20: ETT 03/23: RSC TLC 03/20: Ansari Plan of care discussed with [facility] and CM at bedside. Collaborating Trauma surgeon agrees with plan. Case management consulted to assist with discharge planning. Patient is clear from Trauma surgery standpoint to transfer to [facility] for free flap. - Time Spent with Patient Total time spent providing and/or coordinating discharge services: Greater than 30 minutes Exam Vital signs: Vital Signs 03/25/18 09:03 03/25/18 11:37 03/25/18 12:00 Temperature 99.1 F Pulse Rate 71 111 H Respiratory Rate 13 15 12 Blood Pressure 118/59 L Pulse Oximetry 97 95 03/25/18 12:39 03/25/18 13:11 03/25/18 14:14 Temperature 99.1 F Pulse Rate 70 Respiratory Rate 12 12 12 Blood Pressure 94/56 L Pulse Oximetry 96 95 03/25/18 15:32 03/25/18 16:00 03/25/18 20:00 Temperature 100.4 F H 99.7 F H Pulse Rate 117 H 82 Respiratory Rate 12 12 12 Blood Pressure 138/90 92/51 L Pulse Oximetry 92 L 98 98 Intake & Output 03/25/18 03/26/18 03/26/18 18:59 06:59 18:59 Intake Total 1250 / 1250 350 / 350 Output Total 1575 / 1575 Balance -325 / -325 350 / 350 Intake: IV 1100 / 1100 350 / 350 Diprivan 1000 mg/100 ml Inj 1, 300 / 300 100 / 100 000 mg In 100 ml @ 5 MCG/KG/MIN 3.021 mls/hr IV.CONT TITRATE PRN Rx#:[id number] Levophed-Dextrose 4 mg/250 ml 250 / 250 Drip 4 mg In 250 ml @ 2 MCG/MIN 7.5 mls/hr IV.SIG TITRATE PRN Rx#:[id number] KCl 10 mEq Premix Inj 10 meq In 200 / 200 100 ml @ 100 mls/hr IV.SIG Q1H [facility] Rx#:[id number] Rocephin Inj 1,000 MG In NS Inj 100 / 100 100 ML @ 200 mls/hr IV.SIG Q12H [facility] Rx#:[id number] fentaNYL 10 mcg/mL Premix Drip 250 / 250 250 / 250 2,500 mcg In 250 ml @ 50 MCG/HR 5 mls/hr IV.SIG TITRATE PRN Rx #:[id number] Tube Feeding 0 / 0 Tube Irrigant 150 / 150 Output: Urine Amount (Catheter) 750 / 750 Indwelling Urethral Catheter 750 / 750 Gastric Drainage 800 / 800 Orogastric Tube 800 / 800 Wound Vac Amount 25 / 25 Left Ankle 25 / 25 Other: Mode Setting Left Ankle Intermittent Intermittent # Bowel Movements 0 Narrative: GENERAL: 42 year old critically ill male mechanically ventilated and sedated. SKIN: Warm and dry. Scattered abrasions noted. HEAD: Normocephalic. EYES: Pupils equal and round. No scleral icterus. ENT: No nasal bleeding or discharge. Mucous membranes pink and moist. NECK: Trachea midline. No JVD. CARDIOVASCULAR: Regular rate and rhythm. RESPIRATORY: No accessory muscle use. Lungs clear and diminished to auscultation. Breath sounds equal bilaterally. GASTROINTESTINAL: Abdomen soft, non-tender, nondistended. + BS. MUSCULOSKELETAL: Extremities without cyanosis, generalized +2 edema. LLE ex-fix in place. + perfused NEUROLOGICAL: Sedated. Purposeful, localizes to noxious stimuli x4. Results Procedures completed during hospitalization: 03/20: Intubated 03/20: Left humerus closed reduction of anterior inferior dislocation. Left hip closed reduction of posterior dislocation. Placement of left distal tibia traction pin. Left distal tibia I&D of open fx. Left distal tibia application of multiplanar external fixator. Left distal tibia application of negative pressure VAC therapy. 03/21: Left proximal femur osteotomy, ORIF left acetabulum posterior column/ posterior wall fracture 03/21: LEFT hip radiation 03/24: Bone marrow bx Labs on day of discharge: Labs from last 24 hours 03/25/18 03/25/18 03/24/18 06:08 06:08 16:05 WBC Differential Manual diff final Seg Neuts % (Manual) 34 Band Neuts % (Manual) 11 H Lymphocytes % (Manual) 22 Monocytes % (Manual) 21 H Eosinophils % (Manual) 8 H Basophils % (Manual) 3 H Promyelocytes % (Man) 1 H Abs Neuts (Manual) 0.7 L Platelet Estimate Low L Platelet Morphology Normal Smear Path Review Marrow Immunophenotype MTS Gel Crossmatch 03/23/18 08:15 WBC Differential Seg Neuts % (Manual) Band Neuts % (Manual) Lymphocytes % (Manual) Monocytes % (Manual) Eosinophils % (Manual) Basophils % (Manual) Promyelocytes % (Man) Abs Neuts (Manual) Platelet Estimate Platelet Morphology Smear Path Review Marrow Immunophenotype MTS Gel Crossmatch See Detail Preliminary micro results at discharge 03/23/18 14:30 Aerobic Blood Culture - Preliminary Blood - Peripheral No growth in 2 days Anaerobic Blood Culture - Preliminary No growth in 2 days 03/23/18 14:40 Aerobic Blood Culture - Preliminary Blood - Peripheral No growth in 2 days Anaerobic Blood Culture - Preliminary No growth in 2 days - Impressions ITS Impressions Ankle X-Ray 03/20/18 00:00 CONCLUSION: 1. Severely comminuted fractures involving the distal tibia and fibula with gas in the subcutaneous tissues suggesting open fracture. 2. The ankle mortise is disrupted. The lateral malleolus appears to be posterior to the talus. Aorta w/Runoff CTA 03/20/18 00:00 CONCLUSION: 1. No evidence of proximal arterial injury. 2. In the distal left calf, the left anterior tibial artery is attenuated and displaced by the patient's tibial fractures, however flow does appear to be intact into the dorsalis pedis. The peroneal and posterior tibial vessels taper to absence at the level of the fracture injury, potentially secondary to soft tissue swelling and/or vasospasm. 3. If circulation to the foot remains in question following fracture reduction , catheter arteriography is offered for definitive assessment Hip X-Ray 03/20/18 00:00 CONCLUSION: Severely comminuted fracturing of the left acetabulum. Previously seen dislocation of the left hip has been reduced back into the socket. Shoulder X-Ray 03/20/18 00:00 CONCLUSION: Comminuted Hill-Sachs/greater tuberosity fracturing of the left humerus. The previously seen anterior dislocation has been reduced. Tibia/Fibula X-Ray 03/20/18 00:00 CONCLUSION: Interim external fixation as described. No acute complication demonstrated. Pelvis X-Ray 03/20/18 13:12 CONCLUSION: Acute left pelvic fracture including acetabular protrusio. Cervical Spine CT 03/20/18 13:15 CONCLUSION: No acute bony injury in the cervical spine. Head CT 03/20/18 13:15 CONCLUSION: 1. No acute intracranial abnormality. 2. Chronic paranasal sinus disease. . Thoracic Spine CT 03/20/18 13:15 CONCLUSION: 1. No acute fracture of the thoracic spine identified. Shoulder CT 03/20/18 15:01 CONCLUSION: 1. Dislocation of the humeral head on the glenoid with a markedly comminuted fracture involving the greater tuberosity. The glenoid Glenoid shows no evidence of fracture. Numerous small possible metallic fragments lateral to the humeral neck extending into the deltoid muscle. Ankle CT 03/21/18 00:00 CONCLUSION: 1. Markedly comminuted distal tibia fracture. External fixation in place. Fracture involves the distal tibiofibular syndesmosis and the tibiotalar joint. There is evidence of disruption of the ankle mortise. 2. Comment distal fibular fracture. 3. Prominent medial soft tissue defect. 4. Soft tissue contusion/hematoma as well as muscle tear at the distal gastrocnemius muscle posteriorly. Hip/Pelvis X-Ray 03/21/18 00:00 CONCLUSION: Internal fixation hardware in the acetabulum and proximal femur. Pelvis CT 03/21/18 00:00 CONCLUSION: 1. Left posterior hip dislocation with a severely comminuted fracture of the acetabulum predominately involving the posterior column. 2. Large left hip joint effusion with fat/fluid level 3. Left-sided pelvic retroperitoneal hematoma with no other evidence of pelvic soft tissue injury. Abdomen/Pelvis CT 03/23/18 00:00 CONCLUSION: 1. There is been interval orthopedic surgery involving the left hip and left hemipelvis with reduction of the previously seen dislocation of the hip. There is a small volume of hemorrhage within the pelvis bilaterally tracking up the retroperitoneal soft tissues bilaterally. Overall the amount of blood is stable within the pelvis but the retroperitoneal component is new. The retroperitoneal component is quite small. No intraperitoneal hemorrhage. Chest CT 03/23/18 09:30 CONCLUSION: 1. Interval development of small bilateral pleural effusions and associated bibasilar consolidation. 2. Interval reduction of the previously seen left shoulder dislocation. The humeral fracture is stable. Bone Marrow Biopsy w/ CT 03/24/18 00:00 CONCLUSION: 1. Uncomplicated CT guided bone marrow aspirate. 2. Uncomplicated CT guided bone marrow biopsy. Chest X-Ray 03/25/18 00:00 CONCLUSION: Slight interval worsening in aeration. Discharge Plan - Discharge Disposition Patient Disposition: 70 Transfer To Other Facility - Discharge Order Discharge Orders: Discharge Order (Routine); Ordered 03/25/18 Ordered By: Markell Scott - Physicians Team Primary Care Provider: UNKNOWN, Attending Provider: Markell Scott Other Providers: Forrest Landaverde MD ; Seun Williamson MD ; Farshad Nolen MD ; [employer] ; Jay Sun MD ; Cristina Rosas ARNP ; Rishabh Lizama MD ; Diana Zhang MD ; Cassi Jerez ARNP ; Markell Scott MD ; Maycol Beckman MD
--- NOTE | 2018-03-31 01:12 | ED ---
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 Smudge Cells Toxic Granulation Toxic Vacuolation Dohle Bodies Platelet Estimate Platelet Morphology RBC Morphology Dimorphic RBCs Polychromasia Basophilic Stippling Spherocytes Pappenheimer Bodies Sickle Cells Target Cells Tear Drop Cells Ovalocytes Stomatocytes Helmet Cells Mcwilliams-Patoka Bodies Soheila Cells Acanthocytes (Spur) Rouleaux Keratocytes Smear Path Review Hematology Comments PT (9.8-11.6) sec INR Ratio APTT (24.3-30.1) sec Fibrinogen (227-377) mg/dL Puncture Site Drawn in or Patient Temperature 98.6 O2 Saturation 97 (90-100) % ABG pH 7.31 L (7.380-7.420) ABG pCO2 41 (38-42) mmHg ABG pO2 226 H (61-120) mmHG ABG HCO3 20 L (22-26) mmol/L ABG O2 Content 15.9 (12.0-20.0) Vol % ABG Base Excess -5.2 L (-2-2) mmol/L ABG Methemoglobin 1.6 (0-2) % Daniel Test Present Hemoglobin 11.3 L (12.0-16.0) G/DL Carboxyhemoglobin 1.0 (0-4) % O2 Delivery Device Ventilator Vent Setting Or settings Inspired O2 60 % Critical Value No POC Sodium (137-144) mmol/L Sodium (136-145) meq/L POC Potassium (3.6-5.0) mmol/L Potassium (3.5-5.1) meq/L POC Chloride (102-111) mmol/L Chloride (98-107) meq/L Carbon Dioxide (21.0-32.0) meq/L Anion Gap (5-15) meq/L POC BUN (5-21) mg/dL BUN (7-18) mg/dL Creatinine (0.60-1.30) mg/dL POC Creatinine (0.6-1.3) mg/dL Estimated GFR (>89) mL/min POC Glucose (68-110) mg/dL Random Glucose (74-106) mg/dL Lactic Acid (0.4-2.0) mmol/L Calcium (8.5-10.1) mg/dL Prot Corrected Calcium (8.5-10.1) mg/dL Phosphorus (2.5-4.9) mg/dL Magnesium (1.5-2.5) mg/dL Total Bilirubin (0.2-1.0) mg/dL Direct Bilirubin (0.0-0.2) mg/dL Indirect Bilirubin (0.0-0.8) mg/dL AST (15-37) U/L ALT (12-78) U/L Alkaline Phosphatase (45-117) U/L Total Protein (6.4-8.2) g/dL Albumin (3.4-5.0) g/dL Procalcitonin (0.00-0.08) ng/mL Urine Color (Yellw/Straw) Urine Clarity (Clear) Urine pH (5.0-8.5) Ur Specific [place] (1.002-1.035) Urine Protein (Neg-Trace) mg/dL Urine Glucose (UA) (Negative) mg/dL Urine Ketones (Negative) mg/dL Urine Occult Blood (Negative) Urine Nitrate (Negative) Urine Bilirubin (Negative) Urine Ictotest (Negative) Urine Urobilinogen (Less than 2) mg/dL Ur Leukocyte Esterase (Negative) Urine RBC (0-3) /hpf Urine WBC (0-5) /hpf Amorphous Sediment (None) /hpf Urine Bacteria (None) /hpf Micro UA Comment Ur Microscopic Review Urine Culture Comments Vancomycin Trough (5.0-10.0) mcg/mL Urine Opiates Screen (Neg) Ur Buprenorphine (Negative) Ur Heroin Screen (Negative) Urine Oxycodone (Negative) Ur Methadone (Negative) U Hydromorphone Confirm (Negative) Urine Fentanyl (Negative) Acetaminophen (10.0-30.0) mcg/mL Ur Barbiturates Screen (Neg) Urine Gabapentin (Negative) Ur Phencyclidine (PCP) (Negative) Urine MDPV (Negative) Ur Amphetamine Screen (Neg) Ur Amphetamines Screen (Neg) Ur MDMA & Metabolites (Negative) U Benzodiazepines Scrn (Neg) U Benzodiazepine Confm (Negative) Urine Cocaine Screen (Neg) U Cannabinoids Screen (Neg) Ur Synth THC (K2) (Negative) Serum Alcohol (0-5) mg/dL [place] Immunophenotype HIV 1&2 Ab/P24 Ag 4thGn (Nonreactive) Blood Type Antibody Screen MTS Gel Crossmatch Bld Prod Order Comment 03/20/18 03/20/18 03/21/18 Range/Units 19:50 20:18 02:27 CBC w Diff WBC (4.0-11.0) th/mm3 Corrected WBC RBC (4.50-5.90) mil/mm3 Hgb (13.0-17.0) gm/dL POC Hgb (Calc) (13.0-17.0) g/dL Hct (39.0-51.0) % POC Hct (39-51.0) % MCV (80.0-100.0) fL MCH (27.0-34.0) pg MCHC (32.0-36.0) % RDW (11.6-17.2) % Plt Count (150-450) th/mm3 MPV (7.0-11.0) fL Prelim Diff (Auto) Immature Gran % (Auto) Neut % (Auto) (16.0-70.0) % Lymph % (Auto) (9.0-44.0) % [place] % (Auto) (0.0-8.0) % Eos % (Auto) (0.0-4.0) % Baso % (Auto) (0.0-2.0) % Immature Gran # (Auto) Neut # (Auto) (1.8-7.7) th/mm3 Lymph # (Auto) (1.0-4.8) th/mm3 [place] # (Auto) (0.0-0.9) th/mm3 Eos # (Auto) (0.0-0.4) th/mm3 Baso # (Auto) (0.0-0.2) th/mm3 WBC Differential Diff Scan Seg Neuts % (Manual) Band Neuts % (Manual) Lymphocytes % (Manual) Atypical Lymphs % (Man) Monocytes % (Manual) Eosinophils % (Manual) Basophils % (Manual) Metamyelocytes % (Man) Myelocytes % (Man) Promyelocytes % (Man) Blast Cells % (Manual) Plasma Cell % (Manual) Other Cells % Abs Neuts (Manual) Nucleated RBCs/100 WBC Differential Comment Hypersegmented Neuts Smudge Cells Toxic Granulation Toxic Vacuolation Dohle Bodies Platelet Estimate Platelet Morphology RBC Morphology Dimorphic RBCs Polychromasia Basophilic Stippling Spherocytes Pappenheimer Bodies Sickle Cells Target Cells Tear Drop Cells Ovalocytes Stomatocytes Helmet Cells Mcwilliams-Patoka Bodies Purling Cells Acanthocytes (Spur) Rouleaux Keratocytes Smear Path Review Hematology Comments PT (9.8-11.6) sec INR Ratio APTT (24.3-30.1) sec Fibrinogen (227-377) mg/dL Puncture Site Art line Patient Temperature 98.6 O2 Saturation 97 (90-100) % ABG pH 7.38 (7.380-7.420) ABG pCO2 38 (38-42) mmHg ABG pO2 258 H (61-120) mmHG ABG HCO3 22 (22-26) mmol/L ABG O2 Content 14.5 (12.0-20.0) Vol % ABG Base Excess -2.0 (-2-2) mmol/L ABG Methemoglobin 1.3 (0-2) % Daniel Test Present Hemoglobin 10.2 L (12.0-16.0) G/DL Carboxyhemoglobin 1.4 (0-4) % O2 Delivery Device Ventilator Vent Setting Prvc/ ac Inspired O2 60 % Critical Value No POC Sodium (137-144) mmol/L Sodium 140 (136-145) meq/L POC Potassium (3.6-5.0) mmol/L Potassium 4.5 (3.5-5.1) meq/L POC Chloride (102-111) mmol/L Chloride 105 (98-107) meq/L Carbon Dioxide 24.7 (21.0-32.0) meq/L Anion Gap 10 (5-15) meq/L POC BUN (5-21) mg/dL BUN 7 (7-18) mg/dL Creatinine 0.71 (0.60-1.30) mg/dL POC Creatinine (0.6-1.3) mg/dL Estimated GFR Greater than 89 (>89) mL/min POC Glucose (68-110) mg/dL Random Glucose 117 H (74-106) mg/dL Lactic Acid (0.4-2.0) mmol/L Calcium 7.8 L (8.5-10.1) mg/dL Prot Corrected Calcium (8.5-10.1) mg/dL Phosphorus (2.5-4.9) mg/dL Magnesium (1.5-2.5) mg/dL Total Bilirubin (0.2-1.0) mg/dL Direct Bilirubin (0.0-0.2) mg/dL Indirect Bilirubin (0.0-0.8) mg/dL AST (15-37) U/L ALT (12-78) U/L Alkaline Phosphatase (45-117) U/L Total Protein (6.4-8.2) g/dL Albumin (3.4-5.0) g/dL Procalcitonin (0.00-0.08) ng/mL Urine Color (Yellw/Straw) Urine Clarity (Clear) Urine pH (5.0-8.5) Ur Specific [place] (1.002-1.035) Urine Protein (Neg-Trace) mg/dL Urine Glucose (UA) (Negative) mg/dL Urine Ketones (Negative) mg/dL Urine Occult Blood (Negative) Urine Nitrate (Negative) Urine Bilirubin (Negative) Urine Ictotest (Negative) Urine Urobilinogen (Less than 2) mg/dL Ur Leukocyte Esterase (Negative) Urine RBC (0-3) /hpf Urine WBC (0-5) /hpf Amorphous Sediment (None) /hpf Urine Bacteria (None) /hpf Micro UA Comment Ur Microscopic Review Urine Culture Comments Vancomycin Trough (5.0-10.0) mcg/mL Urine Opiates Screen Neg (Neg) Ur Buprenorphine (Negative) Ur Heroin Screen (Negative) Urine Oxycodone (Negative) Ur Methadone (Negative) U Hydromorphone Confirm (Negative) Urine Fentanyl (Negative) Acetaminophen (10.0-30.0) mcg/mL Ur Barbiturates Screen Neg (Neg) Urine Gabapentin (Negative) Ur Phencyclidine (PCP) (Negative) Urine MDPV (Negative) Ur Amphetamine Screen (Neg) Ur Amphetamines Screen Neg (Neg) Ur MDMA & Metabolites (Negative) U Benzodiazepines Scrn Pos H (Neg) U Benzodiazepine Confm (Negative) Urine Cocaine Screen Neg (Neg) U Cannabinoids Screen Neg (Neg) Ur Synth THC (K2) (Negative) Serum Alcohol (0-5) mg/dL [place] Immunophenotype HIV 1&2 Ab/P24 Ag 4thGn (Nonreactive) Blood Type Antibody Screen MTS Gel Crossmatch Bld Prod Order Comment 03/21/18 03/21/18 03/21/18 Range/Units 05:30 05:30 06:35 CBC w Diff WBC 3.2 L (4.0-11.0) th/mm3 Corrected WBC RBC 2.61 L (4.50-5.90) mil/mm3 Hgb 8.2 L D (13.0-17.0) gm/dL POC Hgb (Calc) (13.0-17.0) g/dL Hct 24.0 L (39.0-51.0) % POC Hct (39-51.0) % MCV 91.9 (80.0-100.0) fL MCH 31.5 (27.0-34.0) pg MCHC 34.2 (32.0-36.0) % RDW 15.3 (11.6-17.2) % Plt Count 113 L (150-450) th/mm3 MPV 7.1 (7.0-11.0) fL Prelim Diff (Auto) Immature Gran % (Auto) Neut % (Auto) 59.0 (16.0-70.0) % Lymph % (Auto) 30.1 (9.0-44.0) % [place] % (Auto) 9.8 H (0.0-8.0) % Eos % (Auto) 0.6 (0.0-4.0) % Baso % (Auto) 0.5 (0.0-2.0) % Immature Gran # (Auto) Neut # (Auto) 1.9 (1.8-7.7) th/mm3 Lymph # (Auto) 0.9 L (1.0-4.8) th/mm3 [place] # (Auto) 0.3 (0.0-0.9) th/mm3 Eos # (Auto) 0.0 (0.0-0.4) th/mm3 Baso # (Auto) 0.0 (0.0-0.2) th/mm3 WBC Differential . Diff Scan Seg Neuts % (Manual) Band Neuts % (Manual) Lymphocytes % (Manual) Atypical Lymphs % (Man) Monocytes % (Manual) Eosinophils % (Manual) Basophils % (Manual) Metamyelocytes % (Man) Myelocytes % (Man) Promyelocytes % (Man) Blast Cells % (Manual) Plasma Cell % (Manual) Other Cells % Abs Neuts (Manual) Nucleated RBCs/100 WBC Differential Comment Auto diff final Hypersegmented Neuts Smudge Cells Toxic Granulation Toxic Vacuolation Dohle Bodies Platelet Estimate Platelet Morphology RBC Morphology Dimorphic RBCs Polychromasia Basophilic Stippling Spherocytes Pappenheimer Bodies Sickle Cells Target Cells Tear Drop Cells Ovalocytes Stomatocytes Helmet Cells Mcwilliams-Patoka Bodies Soheila Cells Acanthocytes (Spur) Rouleaux Keratocytes Smear Path Review Hematology Comments PT (9.8-11.6) sec INR Ratio APTT (24.3-30.1) sec Fibrinogen (227-377) mg/dL Puncture Site Art line Patient Temperature 98.6 O2 Saturation 96 (90-100) % ABG pH 7.39 (7.380-7.420) ABG pCO2 43 H (38-42) mmHg ABG pO2 115 (61-120) mmHG ABG HCO3 25 (22-26) mmol/L ABG O2 Content 11.0 L (12.0-20.0) Vol % ABG Base Excess 0.9 (-2-2) mmol/L ABG Methemoglobin 1.3 (0-2) % Daniel Test Hemoglobin 8.0 L (12.0-16.0) G/DL Carboxyhemoglobin 1.6 (0-4) % O2 Delivery Device Ventilator Vent Setting See comment Inspired O2 40 % Critical Value No POC Sodium (137-144) mmol/L Sodium 144 (136-145) meq/L POC Potassium (3.6-5.0) mmol/L Potassium 4.1 (3.5-5.1) meq/L POC Chloride (102-111) mmol/L Chloride 108 H (98-107) meq/L Carbon Dioxide 25.5 (21.0-32.0) meq/L Anion Gap 11 (5-15) meq/L POC BUN (5-21) mg/dL BUN 10 (7-18) mg/dL Creatinine 0.97 (0.60-1.30) mg/dL POC Creatinine (0.6-1.3) mg/dL Estimated GFR 67 L (>89) mL/min POC Glucose (68-110) mg/dL Random Glucose 119 H (74-106) mg/dL Lactic Acid (0.4-2.0) mmol/L Calcium 6.6 L* D (8.5-10.1) mg/dL Prot Corrected Calcium 8.1 L (8.5-10.1) mg/dL Phosphorus (2.5-4.9) mg/dL Magnesium (1.5-2.5) mg/dL Total Bilirubin (0.2-1.0) mg/dL Direct Bilirubin (0.0-0.2) mg/dL Indirect Bilirubin (0.0-0.8) mg/dL AST (15-37) U/L ALT (12-78) U/L Alkaline Phosphatase (45-117) U/L Total Protein 4.3 L D (6.4-8.2) g/dL Albumin (3.4-5.0) g/dL Procalcitonin (0.00-0.08) ng/mL Urine Color (Yellw/Straw) Urine Clarity (Clear) Urine pH (5.0-8.5) Ur Specific [place] (1.002-1.035) Urine Protein (Neg-Trace) mg/dL Urine Glucose (UA) (Negative) mg/dL Urine Ketones (Negative) mg/dL Urine Occult Blood (Negative) Urine Nitrate (Negative) Urine Bilirubin (Negative) Urine Ictotest (Negative) Urine Urobilinogen (Less than 2) mg/dL Ur Leukocyte Esterase (Negative) Urine RBC (0-3) /hpf Urine WBC (0-5) /hpf Amorphous Sediment (None) /hpf Urine Bacteria (None) /hpf Micro UA Comment Ur Microscopic Review Urine Culture Comments Vancomycin Trough (5.0-10.0) mcg/mL Urine Opiates Screen (Neg) Ur Buprenorphine (Negative) Ur Heroin Screen (Negative) Urine Oxycodone (Negative) Ur Methadone (Negative) U Hydromorphone Confirm (Negative) Urine Fentanyl (Negative) Acetaminophen (10.0-30.0) mcg/mL Ur Barbiturates Screen (Neg) Urine Gabapentin (Negative) Ur Phencyclidine (PCP) (Negative) Urine MDPV (Negative) Ur Amphetamine Screen (Neg) Ur Amphetamines Screen (Neg) Ur MDMA & Metabolites (Negative) U Benzodiazepines Scrn (Neg) U Benzodiazepine Confm (Negative) Urine Cocaine Screen (Neg) U Cannabinoids Screen (Neg) Ur Synth THC (K2) (Negative) Serum Alcohol (0-5) mg/dL [place] Immunophenotype HIV 1&2 Ab/P24 Ag 4thGn (Nonreactive) Blood Type Antibody Screen MTS Gel Crossmatch Bld Prod Order Comment 03/21/18 03/21/18 03/21/18 Range/Units 09:40 11:12 15:00 CBC w Diff WBC (4.0-11.0) th/mm3 Corrected WBC RBC (4.50-5.90) mil/mm3 Hgb 7.6 L (13.0-17.0) gm/dL POC Hgb (Calc) (13.0-17.0) g/dL Hct 21.8 L (39.0-51.0) % POC Hct (39-51.0) % MCV (80.0-100.0) fL MCH (27.0-34.0) pg MCHC (32.0-36.0) % RDW (11.6-17.2) % Plt Count (150-450) th/mm3 MPV (7.0-11.0) fL Prelim Diff (Auto) Immature Gran % (Auto) Neut % (Auto) (16.0-70.0) % Lymph % (Auto) (9.0-44.0) % [place] % (Auto) (0.0-8.0) % Eos % (Auto) (0.0-4.0) % Baso % (Auto) (0.0-2.0) % Immature Gran # (Auto) Neut # (Auto) (1.8-7.7) th/mm3 Lymph # (Auto) (1.0-4.8) th/mm3 [place] # (Auto) (0.0-0.9) th/mm3 Eos # (Auto) (0.0-0.4) th/mm3 Baso # (Auto) (0.0-0.2) th/mm3 WBC Differential Diff Scan Seg Neuts % (Manual) Band Neuts % (Manual) Lymphocytes % (Manual) Atypical Lymphs % (Man) Monocytes % (Manual) Eosinophils % (Manual) Basophils % (Manual) Metamyelocytes % (Man) Myelocytes % (Man) Promyelocytes % (Man) Blast Cells % (Manual) Plasma Cell % (Manual) Other Cells % Abs Neuts (Manual) Nucleated RBCs/100 WBC Differential Comment Hypersegmented Neuts Smudge Cells Toxic Granulation Toxic Vacuolation Dohle Bodies Platelet Estimate Platelet Morphology RBC Morphology Dimorphic RBCs Polychromasia Basophilic Stippling Spherocytes Pappenheimer Bodies Sickle Cells Target Cells Tear Drop Cells Ovalocytes Stomatocytes Helmet Cells Mcwilliams-Patoka Bodies Soheila Cells Acanthocytes (Spur) Rouleaux Keratocytes Smear Path Review Hematology Comments PT (9.8-11.6) sec INR Ratio APTT (24.3-30.1) sec Fibrinogen (227-377) mg/dL Puncture Site Drawn in or Drawn in or Patient Temperature 98.6 98.6 O2 Saturation 97 97 (90-100) % ABG pH 7.34 L 7.40 (7.380-7.420) ABG pCO2 49 H 42 (38-42) mmHg ABG pO2 309 H 310 H (61-120) mmHG ABG HCO3 26 25 (22-26) mmol/L ABG O2 Content 12.2 10.8 L (12.0-20.0) Vol % ABG Base Excess 0.5 1.0 (-2-2) mmol/L ABG Methemoglobin 1.5 1.7 (0-2) % Daniel Test Present Present Hemoglobin 8.4 L 7.3 L* (12.0-16.0) G/DL Carboxyhemoglobin 1.1 1.3 (0-4) % O2 Delivery Device Or Ventilator Vent Setting Or settings Inspired O2 90 % Critical Value No Yes POC Sodium (137-144) mmol/L Sodium (136-145) meq/L POC Potassium (3.6-5.0) mmol/L Potassium (3.5-5.1) meq/L POC Chloride (102-111) mmol/L Chloride (98-107) meq/L Carbon Dioxide (21.0-32.0) meq/L Anion Gap (5-15) meq/L POC BUN (5-21) mg/dL BUN (7-18) mg/dL Creatinine (0.60-1.30) mg/dL POC Creatinine (0.6-1.3) mg/dL Estimated GFR (>89) mL/min POC Glucose (68-110) mg/dL Random Glucose (74-106) mg/dL Lactic Acid (0.4-2.0) mmol/L Calcium (8.5-10.1) mg/dL Prot Corrected Calcium (8.5-10.1) mg/dL Phosphorus (2.5-4.9) mg/dL Magnesium (1.5-2.5) mg/dL Total Bilirubin (0.2-1.0) mg/dL Direct Bilirubin (0.0-0.2) mg/dL Indirect Bilirubin (0.0-0.8) mg/dL AST (15-37) U/L ALT (12-78) U/L Alkaline Phosphatase (45-117) U/L Total Protein (6.4-8.2) g/dL Albumin (3.4-5.0) g/dL Procalcitonin (0.00-0.08) ng/mL Urine Color (Yellw/Straw) Urine Clarity (Clear) Urine pH (5.0-8.5) Ur Specific [place] (1.002-1.035) Urine Protein (Neg-Trace) mg/dL Urine Glucose (UA) (Negative) mg/dL Urine Ketones (Negative) mg/dL Urine Occult Blood (Negative) Urine Nitrate (Negative) Urine Bilirubin (Negative) Urine Ictotest (Negative) Urine Urobilinogen (Less than 2) mg/dL Ur Leukocyte Esterase (Negative) Urine RBC (0-3) /hpf Urine WBC (0-5) /hpf Amorphous Sediment (None) /hpf Urine Bacteria (None) /hpf Micro UA Comment Ur Microscopic Review Urine Culture Comments Vancomycin Trough (5.0-10.0) mcg/mL Urine Opiates Screen (Neg) Ur Buprenorphine (Negative) Ur Heroin Screen (Negative) Urine Oxycodone (Negative) Ur Methadone (Negative) U Hydromorphone Confirm (Negative) Urine Fentanyl (Negative) Acetaminophen (10.0-30.0) mcg/mL Ur Barbiturates Screen (Neg) Urine Gabapentin (Negative) Ur Phencyclidine (PCP) (Negative) Urine MDPV (Negative) Ur Amphetamine Screen (Neg) Ur Amphetamines Screen (Neg) Ur MDMA & Metabolites (Negative) U Benzodiazepines Scrn (Neg) U Benzodiazepine Confm (Negative) Urine Cocaine Screen (Neg) U Cannabinoids Screen (Neg) Ur Synth THC (K2) (Negative) Serum Alcohol (0-5) mg/dL [place] Immunophenotype HIV 1&2 Ab/P24 Ag 4thGn (Nonreactive) Blood Type Antibody Screen MTS Gel Crossmatch Bld Prod Order Comment 03/21/18 03/21/18 03/22/18 Range/Units 15:25 15:35 02:50 CBC w Diff WBC 3.5 L (4.0-11.0) th/mm3 Corrected WBC RBC 2.77 L (4.50-5.90) mil/mm3 Hgb 8.7 L (13.0-17.0) gm/dL POC Hgb (Calc) (13.0-17.0) g/dL Hct 24.6 L (39.0-51.0) % POC Hct (39-51.0) % MCV 88.6 (80.0-100.0) fL MCH 31.3 (27.0-34.0) pg MCHC 35.4 (32.0-36.0) % RDW 15.7 (11.6-17.2) % Plt Count 92 L (150-450) th/mm3 MPV 7.5 (7.0-11.0) fL Prelim Diff (Auto) Slide review pending Immature Gran % (Auto) Neut % (Auto) (16.0-70.0) % Lymph % (Auto) (9.0-44.0) % [place] % (Auto) (0.0-8.0) % Eos % (Auto) (0.0-4.0) % Baso % (Auto) (0.0-2.0) % Immature Gran # (Auto) Neut # (Auto) (1.8-7.7) th/mm3 Lymph # (Auto) (1.0-4.8) th/mm3 [place] # (Auto) (0.0-0.9) th/mm3 Eos # (Auto) (0.0-0.4) th/mm3 Baso # (Auto) (0.0-0.2) th/mm3 WBC Differential Manual diff final Diff Scan Seg Neuts % (Manual) 66 Band Neuts % (Manual) 19 H Lymphocytes % (Manual) 10 Atypical Lymphs % (Man) Monocytes % (Manual) 3 Eosinophils % (Manual) 1 Basophils % (Manual) 1 Metamyelocytes % (Man) Myelocytes % (Man) Promyelocytes % (Man) Blast Cells % (Manual) Plasma Cell % (Manual) Other Cells % Abs Neuts (Manual) 3.0 Nucleated RBCs/100 WBC Differential Comment . Hypersegmented Neuts Smudge Cells Toxic Granulation Toxic Vacuolation Dohle Bodies Platelet Estimate Low L Platelet Morphology Normal RBC Morphology Normal Dimorphic RBCs Polychromasia Basophilic Stippling Spherocytes Pappenheimer Bodies Sickle Cells Target Cells Tear Drop Cells Ovalocytes Stomatocytes Helmet Cells Mcwilliams-Patoka Bodies Purling Cells Acanthocytes (Spur) Rouleaux Keratocytes Smear Path Review Hematology Comments PT (9.8-11.6) sec INR Ratio APTT (24.3-30.1) sec Fibrinogen (227-377) mg/dL Puncture Site Patient Temperature O2 Saturation (90-100) % ABG pH (7.380-7.420) ABG pCO2 (38-42) mmHg ABG pO2 (61-120) mmHG ABG HCO3 (22-26) mmol/L ABG O2 Content (12.0-20.0) Vol % ABG Base Excess (-2-2) mmol/L ABG Methemoglobin (0-2) % Daniel Test Hemoglobin (12.0-16.0) G/DL Carboxyhemoglobin (0-4) % O2 Delivery Device Vent Setting Inspired O2 % Critical Value POC Sodium (137-144) mmol/L Sodium (136-145) meq/L POC Potassium (3.6-5.0) mmol/L Potassium (3.5-5.1) meq/L POC Chloride (102-111) mmol/L Chloride (98-107) meq/L Carbon Dioxide (21.0-32.0) meq/L Anion Gap (5-15) meq/L POC BUN (5-21) mg/dL BUN (7-18) mg/dL Creatinine (0.60-1.30) mg/dL POC Creatinine (0.6-1.3) mg/dL Estimated GFR (>89) mL/min POC Glucose (68-110) mg/dL Random Glucose (74-106) mg/dL Lactic Acid (0.4-2.0) mmol/L Calcium (8.5-10.1) mg/dL Prot Corrected Calcium (8.5-10.1) mg/dL Phosphorus (2.5-4.9) mg/dL Magnesium (1.5-2.5) mg/dL Total Bilirubin (0.2-1.0) mg/dL Direct Bilirubin (0.0-0.2) mg/dL Indirect Bilirubin (0.0-0.8) mg/dL AST (15-37) U/L ALT (12-78) U/L Alkaline Phosphatase (45-117) U/L Total Protein (6.4-8.2) g/dL Albumin (3.4-5.0) g/dL Procalcitonin (0.00-0.08) ng/mL Urine Color (Yellw/Straw) Urine Clarity (Clear) Urine pH (5.0-8.5) Ur Specific [place] (1.002-1.035) Urine Protein (Neg-Trace) mg/dL Urine Glucose (UA) (Negative) mg/dL Urine Ketones (Negative) mg/dL Urine Occult Blood (Negative) Urine Nitrate (Negative) Urine Bilirubin (Negative) Urine Ictotest (Negative) Urine Urobilinogen (Less than 2) mg/dL Ur Leukocyte Esterase (Negative) Urine RBC (0-3) /hpf Urine WBC (0-5) /hpf Amorphous Sediment (None) /hpf Urine Bacteria (None) /hpf Micro UA Comment Ur Microscopic Review Urine Culture Comments Vancomycin Trough (5.0-10.0) mcg/mL Urine Opiates Screen (Neg) Ur Buprenorphine (Negative) Ur Heroin Screen (Negative) Urine Oxycodone (Negative) Ur Methadone (Negative) U Hydromorphone Confirm (Negative) Urine Fentanyl (Negative) Acetaminophen (10.0-30.0) mcg/mL Ur Barbiturates Screen (Neg) Urine Gabapentin (Negative) Ur Phencyclidine (PCP) (Negative) Urine MDPV (Negative) Ur Amphetamine Screen (Neg) Ur Amphetamines Screen (Neg) Ur MDMA & Metabolites (Negative) U Benzodiazepines Scrn (Neg) U Benzodiazepine Confm (Negative) Urine Cocaine Screen (Neg) U Cannabinoids Screen (Neg) Ur Synth THC (K2) (Negative) Serum Alcohol (0-5) mg/dL [place] Immunophenotype HIV 1&2 Ab/P24 Ag 4thGn (Nonreactive) Blood Type Antibody Screen MTS Gel Crossmatch See Detail See Detail Bld Prod Order Comment 03/22/18 03/22/18 03/22/18 Range/Units 02:50 10:15 13:26 CBC w Diff WBC (4.0-11.0) th/mm3 Corrected WBC RBC (4.50-5.90) mil/mm3 Hgb (13.0-17.0) gm/dL POC Hgb (Calc) (13.0-17.0) g/dL Hct (39.0-51.0) % POC Hct (39-51.0) % MCV (80.0-100.0) fL MCH (27.0-34.0) pg MCHC (32.0-36.0) % RDW (11.6-17.2) % Plt Count (150-450) th/mm3 MPV (7.0-11.0) fL Prelim Diff (Auto) Immature Gran % (Auto) Neut % (Auto) (16.0-70.0) % Lymph % (Auto) (9.0-44.0) % [place] % (Auto) (0.0-8.0) % Eos % (Auto) (0.0-4.0) % Baso % (Auto) (0.0-2.0) % Immature Gran # (Auto) Neut # (Auto) (1.8-7.7) th/mm3 Lymph # (Auto) (1.0-4.8) th/mm3 [place] # (Auto) (0.0-0.9) th/mm3 Eos # (Auto) (0.0-0.4) th/mm3 Baso # (Auto) (0.0-0.2) th/mm3 WBC Differential Diff Scan Seg Neuts % (Manual) Band Neuts % (Manual) Lymphocytes % (Manual) Atypical Lymphs % (Man) Monocytes % (Manual) Eosinophils % (Manual) Basophils % (Manual) Metamyelocytes % (Man) Myelocytes % (Man) Promyelocytes % (Man) Blast Cells % (Manual) Plasma Cell % (Manual) Other Cells % Abs Neuts (Manual) Nucleated RBCs/100 WBC Differential Comment Hypersegmented Neuts Smudge Cells Toxic Granulation Toxic Vacuolation Dohle Bodies Platelet Estimate Platelet Morphology RBC Morphology Dimorphic RBCs Polychromasia Basophilic Stippling Spherocytes Pappenheimer Bodies Sickle Cells Target Cells Tear Drop Cells Ovalocytes Stomatocytes Helmet Cells Mcwilliams-Patoka Bodies Soheila Cells Acanthocytes (Spur) Rouleaux Keratocytes Smear Path Review Hematology Comments PT (9.8-11.6) sec INR Ratio APTT (24.3-30.1) sec Fibrinogen (227-377) mg/dL Puncture Site Art line Art line Patient Temperature 98.6 98.6 O2 Saturation 94 96 (90-100) % ABG pH 7.26 L* 7.45 H (7.380-7.420) ABG pCO2 54 H* 35 L (38-42) mmHg ABG pO2 94 110 (61-120) mmHG ABG HCO3 23 24 (22-26) mmol/L ABG O2 Content 10.9 L 12.1 (12.0-20.0) Vol % ABG Base Excess -2.8 L 0.6 (-2-2) mmol/L ABG Methemoglobin 1.3 1.4 (0-2) % Daniel Test Hemoglobin 8.1 L 8.8 L (12.0-16.0) G/DL Carboxyhemoglobin 1.4 1.4 (0-4) % O2 Delivery Device Ventilator Ventilator Vent Setting Inspired O2 35 50 % Critical Value Yes No POC Sodium (137-144) mmol/L Sodium 147 H (136-145) meq/L POC Potassium (3.6-5.0) mmol/L Potassium 3.9 (3.5-5.1) meq/L POC Chloride (102-111) mmol/L Chloride 111 H (98-107) meq/L Carbon Dioxide 30.6 (21.0-32.0) meq/L Anion Gap 5 (5-15) meq/L POC BUN (5-21) mg/dL BUN 12 (7-18) mg/dL Creatinine 1.41 H (0.60-1.30) mg/dL POC Creatinine (0.6-1.3) mg/dL Estimated GFR 43 L (>89) mL/min POC Glucose (68-110) mg/dL Random Glucose 124 H (74-106) mg/dL Lactic Acid (0.4-2.0) mmol/L Calcium 7.0 L* (8.5-10.1) mg/dL Prot Corrected Calcium 8.8 (8.5-10.1) mg/dL Phosphorus (2.5-4.9) mg/dL Magnesium (1.5-2.5) mg/dL Total Bilirubin (0.2-1.0) mg/dL Direct Bilirubin (0.0-0.2) mg/dL Indirect Bilirubin (0.0-0.8) mg/dL AST (15-37) U/L ALT (12-78) U/L Alkaline Phosphatase (45-117) U/L Total Protein 4.0 L (6.4-8.2) g/dL Albumin (3.4-5.0) g/dL Procalcitonin (0.00-0.08) ng/mL Urine Color (Yellw/Straw) Urine Clarity (Clear) Urine pH (5.0-8.5) Ur Specific [place] (1.002-1.035) Urine Protein (Neg-Trace) mg/dL Urine Glucose (UA) (Negative) mg/dL Urine Ketones (Negative) mg/dL Urine Occult Blood (Negative) Urine Nitrate (Negative) Urine Bilirubin (Negative) Urine Ictotest (Negative) Urine Urobilinogen (Less than 2) mg/dL Ur Leukocyte Esterase (Negative) Urine RBC (0-3) /hpf Urine WBC (0-5) /hpf Amorphous Sediment (None) /hpf Urine Bacteria (None) /hpf Micro UA Comment Ur Microscopic Review Urine Culture Comments Vancomycin Trough (5.0-10.0) mcg/mL Urine Opiates Screen (Neg) Ur Buprenorphine (Negative) Ur Heroin Screen (Negative) Urine Oxycodone (Negative) Ur Methadone (Negative) U Hydromorphone Confirm (Negative) Urine Fentanyl (Negative) Acetaminophen (10.0-30.0) mcg/mL Ur Barbiturates Screen (Neg) Urine Gabapentin (Negative) Ur Phencyclidine (PCP) (Negative) Urine MDPV (Negative) Ur Amphetamine Screen (Neg) Ur Amphetamines Screen (Neg) Ur MDMA & Metabolites (Negative) U Benzodiazepines Scrn (Neg) U Benzodiazepine Confm (Negative) Urine Cocaine Screen (Neg) U Cannabinoids Screen (Neg) Ur Synth THC (K2) (Negative) Serum Alcohol (0-5) mg/dL [place] Immunophenotype HIV 1&2 Ab/P24 Ag 4thGn (Nonreactive) Blood Type Antibody Screen MTS Gel Crossmatch Bld Prod Order Comment 03/23/18 03/23/18 03/23/18 Range/Units 04:22 05:55 05:55 CBC w Diff WBC 0.4 L (4.0-11.0) th/mm3 Corrected WBC RBC 2.29 L (4.50-5.90) mil/mm3 Hgb 7.1 L (13.0-17.0) gm/dL POC Hgb (Calc) (13.0-17.0) g/dL Hct 20.6 L* (39.0-51.0) % POC Hct (39-51.0) % MCV 89.9 (80.0-100.0) fL MCH 31.1 (27.0-34.0) pg MCHC 34.6 (32.0-36.0) % RDW 15.4 (11.6-17.2) % Plt Count 86 L (150-450) th/mm3 MPV 7.6 (7.0-11.0) fL Prelim Diff (Auto) Manual diff required Immature Gran % (Auto) Neut % (Auto) (16.0-70.0) % Lymph % (Auto) (9.0-44.0) % [place] % (Auto) (0.0-8.0) % Eos % (Auto) (0.0-4.0) % Baso % (Auto) (0.0-2.0) % Immature Gran # (Auto) Neut # (Auto) (1.8-7.7) th/mm3 Lymph # (Auto) (1.0-4.8) th/mm3 [place] # (Auto) (0.0-0.9) th/mm3 Eos # (Auto) (0.0-0.4) th/mm3 Baso # (Auto) (0.0-0.2) th/mm3 WBC Differential Manual diff final Diff Scan Seg Neuts % (Manual) 32 Band Neuts % (Manual) 28 H Lymphocytes % (Manual) 32 Atypical Lymphs % (Man) Monocytes % (Manual) 8 Eosinophils % (Manual) Basophils % (Manual) Metamyelocytes % (Man) Myelocytes % (Man) Promyelocytes % (Man) Blast Cells % (Manual) Plasma Cell % (Manual) Other Cells % Abs Neuts (Manual) 0.2 L* Nucleated RBCs/100 WBC Differential Comment . Hypersegmented Neuts Smudge Cells Toxic Granulation Toxic Vacuolation Dohle Bodies Platelet Estimate Low L Platelet Morphology Normal RBC Morphology Dimorphic RBCs Polychromasia Basophilic Stippling Spherocytes Pappenheimer Bodies Sickle Cells Target Cells Tear Drop Cells Ovalocytes Stomatocytes Helmet Cells Mcwilliams-Patoka Bodies Soheila Cells Acanthocytes (Spur) Rouleaux Keratocytes Smear Path Review Hematology Comments PT (9.8-11.6) sec INR Ratio APTT (24.3-30.1) sec Fibrinogen (227-377) mg/dL Puncture Site Art line Patient Temperature 98.6 O2 Saturation 96 (90-100) % ABG pH 7.57 H* (7.380-7.420) ABG pCO2 23 L* (38-42) mmHg ABG pO2 90 (61-120) mmHG ABG HCO3 21 L (22-26) mmol/L ABG O2 Content 11.5 L (12.0-20.0) Vol % ABG Base Excess -0.9 (-2-2) mmol/L ABG Methemoglobin 1.1 (0-2) % Daniel Test Hemoglobin 8.4 L (12.0-16.0) G/DL Carboxyhemoglobin 1.3 (0-4) % O2 Delivery Device Ventilator Vent Setting Prvc / ac / Inspired O2 35 % Critical Value Yes POC Sodium (137-144) mmol/L Sodium 144 (136-145) meq/L POC Potassium (3.6-5.0) mmol/L Potassium 2.9 L* D (3.5-5.1) meq/L POC Chloride (102-111) mmol/L Chloride 112 H (98-107) meq/L Carbon Dioxide 23.9 (21.0-32.0) meq/L Anion Gap 8 (5-15) meq/L POC BUN (5-21) mg/dL BUN 18 (7-18) mg/dL Creatinine 2.48 H (0.60-1.30) mg/dL POC Creatinine (0.6-1.3) mg/dL Estimated GFR 28 L (>89) mL/min POC Glucose (68-110) mg/dL Random Glucose 127 H (74-106) mg/dL Lactic Acid (0.4-2.0) mmol/L Calcium 6.7 L* (8.5-10.1) mg/dL Prot Corrected Calcium 8.4 L (8.5-10.1) mg/dL Phosphorus (2.5-4.9) mg/dL Magnesium (1.5-2.5) mg/dL Total Bilirubin (0.2-1.0) mg/dL Direct Bilirubin (0.0-0.2) mg/dL Indirect Bilirubin (0.0-0.8) mg/dL AST (15-37) U/L ALT (12-78) U/L Alkaline Phosphatase (45-117) U/L Total Protein 4.0 L (6.4-8.2) g/dL Albumin (3.4-5.0) g/dL Procalcitonin (0.00-0.08) ng/mL Urine Color (Yellw/Straw) Urine Clarity (Clear) Urine pH (5.0-8.5) Ur Specific [place] (1.002-1.035) Urine Protein (Neg-Trace) mg/dL Urine Glucose (UA) (Negative) mg/dL Urine Ketones (Negative) mg/dL Urine Occult Blood (Negative) Urine Nitrate (Negative) Urine Bilirubin (Negative) Urine Ictotest (Negative) Urine Urobilinogen (Less than 2) mg/dL Ur Leukocyte Esterase (Negative) Urine RBC (0-3) /hpf Urine WBC (0-5) /hpf Amorphous Sediment (None) /hpf Urine Bacteria (None) /hpf Micro UA Comment Ur Microscopic Review Urine Culture Comments Vancomycin Trough (5.0-10.0) mcg/mL Urine Opiates Screen (Neg) Ur Buprenorphine (Negative) Ur Heroin Screen (Negative) Urine Oxycodone (Negative) Ur Methadone (Negative) U Hydromorphone Confirm (Negative) Urine Fentanyl (Negative) Acetaminophen (10.0-30.0) mcg/mL Ur Barbiturates Screen (Neg) Urine Gabapentin (Negative) Ur Phencyclidine (PCP) (Negative) Urine MDPV (Negative) Ur Amphetamine Screen (Neg) Ur Amphetamines Screen (Neg) Ur MDMA & Metabolites (Negative) U Benzodiazepines Scrn (Neg) U Benzodiazepine Confm (Negative) Urine Cocaine Screen (Neg) U Cannabinoids Screen (Neg) Ur Synth THC (K2) (Negative) Serum Alcohol (0-5) mg/dL [place] Immunophenotype HIV 1&2 Ab/P24 Ag 4thGn (Nonreactive) Blood Type Antibody Screen MTS Gel Crossmatch Bld Prod Order Comment 03/23/18 03/23/18 03/23/18 Range/Units 05:55 05:55 08:15 CBC w Diff WBC (4.0-11.0) th/mm3 Corrected WBC RBC (4.50-5.90) mil/mm3 Hgb (13.0-17.0) gm/dL POC Hgb (Calc) (13.0-17.0) g/dL Hct (39.0-51.0) % POC Hct (39-51.0) % MCV (80.0-100.0) fL MCH (27.0-34.0) pg MCHC (32.0-36.0) % RDW (11.6-17.2) % Plt Count (150-450) th/mm3 MPV (7.0-11.0) fL Prelim Diff (Auto) Immature Gran % (Auto) Neut % (Auto) (16.0-70.0) % Lymph % (Auto) (9.0-44.0) % [place] % (Auto) (0.0-8.0) % Eos % (Auto) (0.0-4.0) % Baso % (Auto) (0.0-2.0) % Immature Gran # (Auto) Neut # (Auto) (1.8-7.7) th/mm3 Lymph # (Auto) (1.0-4.8) th/mm3 [place] # (Auto) (0.0-0.9) th/mm3 Eos # (Auto) (0.0-0.4) th/mm3 Baso # (Auto) (0.0-0.2) th/mm3 WBC Differential Diff Scan Seg Neuts % (Manual) Band Neuts % (Manual) Lymphocytes % (Manual) Atypical Lymphs % (Man) Monocytes % (Manual) Eosinophils % (Manual) Basophils % (Manual) Metamyelocytes % (Man) Myelocytes % (Man) Promyelocytes % (Man) Blast Cells % (Manual) Plasma Cell % (Manual) Other Cells % Abs Neuts (Manual) Nucleated RBCs/100 WBC Differential Comment Hypersegmented Neuts Smudge Cells Toxic Granulation Toxic Vacuolation Dohle Bodies Platelet Estimate Platelet Morphology RBC Morphology Dimorphic RBCs Polychromasia Basophilic Stippling Spherocytes Pappenheimer Bodies Sickle Cells Target Cells Tear Drop Cells Ovalocytes Stomatocytes Helmet Cells Mcwilliams-Patoka Bodies Soheila Cells Acanthocytes (Spur) Rouleaux Keratocytes Smear Path Review Hematology Comments PT (9.8-11.6) sec INR Ratio APTT (24.3-30.1) sec Fibrinogen (227-377) mg/dL Puncture Site Patient Temperature O2 Saturation (90-100) % ABG pH (7.380-7.420) ABG pCO2 (38-42) mmHg ABG pO2 (61-120) mmHG ABG HCO3 (22-26) mmol/L ABG O2 Content (12.0-20.0) Vol % ABG Base Excess (-2-2) mmol/L ABG Methemoglobin (0-2) % Daniel Test Hemoglobin (12.0-16.0) G/DL Carboxyhemoglobin (0-4) % O2 Delivery Device Vent Setting Inspired O2 % Critical Value POC Sodium (137-144) mmol/L Sodium (136-145) meq/L POC Potassium (3.6-5.0) mmol/L Potassium (3.5-5.1) meq/L POC Chloride (102-111) mmol/L Chloride (98-107) meq/L Carbon Dioxide (21.0-32.0) meq/L Anion Gap (5-15) meq/L POC BUN (5-21) mg/dL BUN (7-18) mg/dL Creatinine (0.60-1.30) mg/dL POC Creatinine (0.6-1.3) mg/dL Estimated GFR (>89) mL/min POC Glucose (68-110) mg/dL Random Glucose (74-106) mg/dL Lactic Acid (0.4-2.0) mmol/L Calcium (8.5-10.1) mg/dL Prot Corrected Calcium (8.5-10.1) mg/dL Phosphorus (2.5-4.9) mg/dL Magnesium (1.5-2.5) mg/dL Total Bilirubin 3.2 H (0.2-1.0) mg/dL Direct Bilirubin 2.7 H (0.0-0.2) mg/dL Indirect Bilirubin 0.5 (0.0-0.8) mg/dL AST 183 H (15-37) U/L ALT 56 (12-78) U/L Alkaline Phosphatase 53 (45-117) U/L Total Protein 4.1 L (6.4-8.2) g/dL Albumin 1.5 L (3.4-5.0) g/dL Procalcitonin (0.00-0.08) ng/mL Urine Color (Yellw/Straw) Urine Clarity (Clear) Urine pH (5.0-8.5) Ur Specific [place] (1.002-1.035) Urine Protein (Neg-Trace) mg/dL Urine Glucose (UA) (Negative) mg/dL Urine Ketones (Negative) mg/dL Urine Occult Blood (Negative) Urine Nitrate (Negative) Urine Bilirubin (Negative) Urine Ictotest (Negative) Urine Urobilinogen (Less than 2) mg/dL Ur Leukocyte Esterase (Negative) Urine RBC (0-3) /hpf Urine WBC (0-5) /hpf Amorphous Sediment (None) /hpf Urine Bacteria (None) /hpf Micro UA Comment Ur Microscopic Review Urine Culture Comments Vancomycin Trough 33.9 H (5.0-10.0) mcg/mL Urine Opiates Screen (Neg) Ur Buprenorphine (Negative) Ur Heroin Screen (Negative) Urine Oxycodone (Negative) Ur Methadone (Negative) U Hydromorphone Confirm (Negative) Urine Fentanyl (Negative) Acetaminophen (10.0-30.0) mcg/mL Ur Barbiturates Screen (Neg) Urine Gabapentin (Negative) Ur Phencyclidine (PCP) (Negative) Urine MDPV (Negative) Ur Amphetamine Screen (Neg) Ur Amphetamines Screen (Neg) Ur MDMA & Metabolites (Negative) U Benzodiazepines Scrn (Neg) U Benzodiazepine Confm (Negative) Urine Cocaine Screen (Neg) U Cannabinoids Screen (Neg) Ur Synth THC (K2) (Negative) Serum Alcohol (0-5) mg/dL [place] Immunophenotype HIV 1&2 Ab/P24 Ag 4thGn (Nonreactive) Blood Type O Negative Antibody Screen Negative MTS Gel Crossmatch See Detail Bld Prod Order Comment 03/23/18 03/23/18 03/23/18 Range/Units 14:40 14:40 14:40 CBC w Diff WBC (4.0-11.0) th/mm3 Corrected WBC RBC (4.50-5.90) mil/mm3 Hgb (13.0-17.0) gm/dL POC Hgb (Calc) (13.0-17.0) g/dL Hct (39.0-51.0) % POC Hct (39-51.0) % MCV (80.0-100.0) fL MCH (27.0-34.0) pg MCHC (32.0-36.0) % RDW (11.6-17.2) % Plt Count (150-450) th/mm3 MPV (7.0-11.0) fL Prelim Diff (Auto) Immature Gran % (Auto) Neut % (Auto) (16.0-70.0) % Lymph % (Auto) (9.0-44.0) % [place] % (Auto) (0.0-8.0) % Eos % (Auto) (0.0-4.0) % Baso % (Auto) (0.0-2.0) % Immature Gran # (Auto) Neut # (Auto) (1.8-7.7) th/mm3 Lymph # (Auto) (1.0-4.8) th/mm3 [place] # (Auto) (0.0-0.9) th/mm3 Eos # (Auto) (0.0-0.4) th/mm3 Baso # (Auto) (0.0-0.2) th/mm3 WBC Differential Diff Scan Seg Neuts % (Manual) Band Neuts % (Manual) Lymphocytes % (Manual) Atypical Lymphs % (Man) Monocytes % (Manual) Eosinophils % (Manual) Basophils % (Manual) Metamyelocytes % (Man) Myelocytes % (Man) Promyelocytes % (Man) Blast Cells % (Manual) Plasma Cell % (Manual) Other Cells % Abs Neuts (Manual) Nucleated RBCs/100 WBC Differential Comment Hypersegmented Neuts Smudge Cells Toxic Granulation Toxic Vacuolation Dohle Bodies Platelet Estimate Platelet Morphology RBC Morphology Dimorphic RBCs Polychromasia Basophilic Stippling Spherocytes Pappenheimer Bodies Sickle Cells Target Cells Tear Drop Cells Ovalocytes Stomatocytes Helmet Cells Mcwilliams-Patoka Bodies Purling Cells Acanthocytes (Spur) Rouleaux Keratocytes Smear Path Review Hematology Comments PT 9.3 L (9.8-11.6) sec INR 0.9 Ratio APTT 28.2 (24.3-30.1) sec Fibrinogen (227-377) mg/dL Puncture Site Patient Temperature O2 Saturation (90-100) % ABG pH (7.380-7.420) ABG pCO2 (38-42) mmHg ABG pO2 (61-120) mmHG ABG HCO3 (22-26) mmol/L ABG O2 Content (12.0-20.0) Vol % ABG Base Excess (-2-2) mmol/L ABG Methemoglobin (0-2) % Daniel Test Hemoglobin (12.0-16.0) G/DL Carboxyhemoglobin (0-4) % O2 Delivery Device Vent Setting Inspired O2 % Critical Value POC Sodium (137-144) mmol/L Sodium (136-145) meq/L POC Potassium (3.6-5.0) mmol/L Potassium (3.5-5.1) meq/L POC Chloride (102-111) mmol/L Chloride (98-107) meq/L Carbon Dioxide (21.0-32.0) meq/L Anion Gap (5-15) meq/L POC BUN (5-21) mg/dL BUN (7-18) mg/dL Creatinine (0.60-1.30) mg/dL POC Creatinine (0.6-1.3) mg/dL Estimated GFR (>89) mL/min POC Glucose (68-110) mg/dL Random Glucose (74-106) mg/dL Lactic Acid 1.2 (0.4-2.0) mmol/L Calcium (8.5-10.1) mg/dL Prot Corrected Calcium (8.5-10.1) mg/dL Phosphorus (2.5-4.9) mg/dL Magnesium (1.5-2.5) mg/dL Total Bilirubin (0.2-1.0) mg/dL Direct Bilirubin (0.0-0.2) mg/dL Indirect Bilirubin (0.0-0.8) mg/dL AST (15-37) U/L ALT (12-78) U/L Alkaline Phosphatase (45-117) U/L Total Protein (6.4-8.2) g/dL Albumin (3.4-5.0) g/dL Procalcitonin 2.36 H (0.00-0.08) ng/mL Urine Color (Yellw/Straw) Urine Clarity (Clear) Urine pH (5.0-8.5) Ur Specific [place] (1.002-1.035) Urine Protein (Neg-Trace) mg/dL Urine Glucose (UA) (Negative) mg/dL Urine Ketones (Negative) mg/dL Urine Occult Blood (Negative) Urine Nitrate (Negative) Urine Bilirubin (Negative) Urine Ictotest (Negative) Urine Urobilinogen (Less than 2) mg/dL Ur Leukocyte Esterase (Negative) Urine RBC (0-3) /hpf Urine WBC (0-5) /hpf Amorphous Sediment (None) /hpf Urine Bacteria (None) /hpf Micro UA Comment Ur Microscopic Review Urine Culture Comments Vancomycin Trough (5.0-10.0) mcg/mL Urine Opiates Screen (Neg) Ur Buprenorphine (Negative) Ur Heroin Screen (Negative) Urine Oxycodone (Negative) Ur Methadone (Negative) U Hydromorphone Confirm (Negative) Urine Fentanyl (Negative) Acetaminophen (10.0-30.0) mcg/mL Ur Barbiturates Screen (Neg) Urine Gabapentin (Negative) Ur Phencyclidine (PCP) (Negative) Urine MDPV (Negative) Ur Amphetamine Screen (Neg) Ur Amphetamines Screen (Neg) Ur MDMA & Metabolites (Negative) U Benzodiazepines Scrn (Neg) U Benzodiazepine Confm (Negative) Urine Cocaine Screen (Neg) U Cannabinoids Screen (Neg) Ur Synth THC (K2) (Negative) Serum Alcohol (0-5) mg/dL [place] Immunophenotype HIV 1&2 Ab/P24 Ag 4thGn (Nonreactive) Blood Type Antibody Screen MTS Gel Crossmatch Bld Prod Order Comment 03/23/18 03/23/18 03/23/18 Range/Units 16:50 16:50 16:50 CBC w Diff WBC 1.1 L D (4.0-11.0) th/mm3 Corrected WBC RBC 2.96 L (4.50-5.90) mil/mm3 Hgb 9.4 L D (13.0-17.0) gm/dL POC Hgb (Calc) (13.0-17.0) g/dL Hct 26.3 L (39.0-51.0) % POC Hct (39-51.0) % MCV 88.9 (80.0-100.0) fL MCH 31.6 (27.0-34.0) pg MCHC 35.6 (32.0-36.0) % RDW 15.5 (11.6-17.2) % Plt Count 87 L (150-450) th/mm3 MPV 8.0 (7.0-11.0) fL Prelim Diff (Auto) Slide review pending Immature Gran % (Auto) Neut % (Auto) 33.2 (16.0-70.0) % Lymph % (Auto) 40.7 (9.0-44.0) % [place] % (Auto) 17.1 H (0.0-8.0) % Eos % (Auto) 8.1 H (0.0-4.0) % Baso % (Auto) 0.9 (0.0-2.0) % Immature Gran # (Auto) Neut # (Auto) 0.4 L* (1.8-7.7) th/mm3 Lymph # (Auto) 0.4 L (1.0-4.8) th/mm3 [place] # (Auto) 0.2 (0.0-0.9) th/mm3 Eos # (Auto) 0.1 (0.0-0.4) th/mm3 Baso # (Auto) 0.0 (0.0-0.2) th/mm3 WBC Differential Manual diff final Diff Scan Seg Neuts % (Manual) 13 L Band Neuts % (Manual) 18 H Lymphocytes % (Manual) 57 H Atypical Lymphs % (Man) Monocytes % (Manual) 4 Eosinophils % (Manual) 7 H Basophils % (Manual) 1 Metamyelocytes % (Man) Myelocytes % (Man) Promyelocytes % (Man) Blast Cells % (Manual) Plasma Cell % (Manual) Other Cells % Abs Neuts (Manual) 0.3 L* Nucleated RBCs/100 WBC Differential Comment . Hypersegmented Neuts Smudge Cells Toxic Granulation Toxic Vacuolation Dohle Bodies Present H Platelet Estimate Low L Platelet Morphology Normal RBC Morphology Dimorphic RBCs Polychromasia Basophilic Stippling Spherocytes Pappenheimer Bodies Sickle Cells Target Cells Tear Drop Cells Ovalocytes Stomatocytes Helmet Cells Mcwilliams-Patoka Bodies Soheila Cells Acanthocytes (Spur) Occ H Rouleaux Keratocytes Smear Path Review Hematology Comments PT (9.8-11.6) sec INR Ratio APTT (24.3-30.1) sec Fibrinogen (227-377) mg/dL Puncture Site Patient Temperature O2 Saturation (90-100) % ABG pH (7.380-7.420) ABG pCO2 (38-42) mmHg ABG pO2 (61-120) mmHG ABG HCO3 (22-26) mmol/L ABG O2 Content (12.0-20.0) Vol % ABG Base Excess (-2-2) mmol/L ABG Methemoglobin (0-2) % Daniel Test Hemoglobin (12.0-16.0) G/DL Carboxyhemoglobin (0-4) % O2 Delivery Device Vent Setting Inspired O2 % Critical Value POC Sodium (137-144) mmol/L Sodium 145 (136-145) meq/L POC Potassium (3.6-5.0) mmol/L Potassium 3.2 L (3.5-5.1) meq/L POC Chloride (102-111) mmol/L Chloride 114 H (98-107) meq/L Carbon Dioxide 21.8 (21.0-32.0) meq/L Anion Gap 9 (5-15) meq/L POC BUN (5-21) mg/dL BUN 20 H (7-18) mg/dL Creatinine 2.64 H (0.60-1.30) mg/dL POC Creatinine (0.6-1.3) mg/dL Estimated GFR 26 L (>89) mL/min POC Glucose (68-110) mg/dL Random Glucose 122 H (74-106) mg/dL Lactic Acid (0.4-2.0) mmol/L Calcium 7.1 L* (8.5-10.1) mg/dL Prot Corrected Calcium 8.5 (8.5-10.1) mg/dL Phosphorus (2.5-4.9) mg/dL Magnesium (1.5-2.5) mg/dL Total Bilirubin (0.2-1.0) mg/dL Direct Bilirubin (0.0-0.2) mg/dL Indirect Bilirubin (0.0-0.8) mg/dL AST (15-37) U/L ALT (12-78) U/L Alkaline Phosphatase (45-117) U/L Total Protein 4.5 L (6.4-8.2) g/dL Albumin (3.4-5.0) g/dL Procalcitonin (0.00-0.08) ng/mL Urine Color Claudia (Yellw/Straw) Urine Clarity Turbid H (Clear) Urine pH 5.0 (5.0-8.5) Ur Specific [place] 1.018 (1.002-1.035) Urine Protein 100 H (Neg-Trace) mg/dL Urine Glucose (UA) Negative (Negative) mg/dL Urine Ketones Negative (Negative) mg/dL Urine Occult Blood Large H (Negative) Urine Nitrate Negative (Negative) Urine Bilirubin Large H (Negative) Urine Ictotest Positive H (Negative) Urine Urobilinogen Less than 2 (Less than 2) mg/dL Ur Leukocyte Esterase Trace H (Negative) Urine RBC 5 H (0-3) /hpf Urine WBC 17 H (0-5) /hpf Amorphous Sediment Many H (None) /hpf Urine Bacteria Occasional H (None) /hpf Micro UA Comment Cath-culture ind Ur Microscopic Review Not Reportable Urine Culture Comments Cath-cult indicated Vancomycin Trough (5.0-10.0) mcg/mL Urine Opiates Screen (Neg) Ur Buprenorphine (Negative) Ur Heroin Screen (Negative) Urine Oxycodone (Negative) Ur Methadone (Negative) U Hydromorphone Confirm (Negative) Urine Fentanyl (Negative) Acetaminophen (10.0-30.0) mcg/mL Ur Barbiturates Screen (Neg) Urine Gabapentin (Negative) Ur Phencyclidine (PCP) (Negative) Urine MDPV (Negative) Ur Amphetamine Screen (Neg) Ur Amphetamines Screen (Neg) Ur MDMA & Metabolites (Negative) U Benzodiazepines Scrn (Neg) U Benzodiazepine Confm (Negative) Urine Cocaine Screen (Neg) U Cannabinoids Screen (Neg) Ur Synth THC (K2) (Negative) Serum Alcohol (0-5) mg/dL [place] Immunophenotype HIV 1&2 Ab/P24 Ag 4thGn (Nonreactive) Blood Type Antibody Screen MTS Gel Crossmatch Bld Prod Order Comment 03/24/18 03/24/18 03/24/18 Range/Units 05:39 05:55 05:55 CBC w Diff WBC 1.1 L (4.0-11.0) th/mm3 Corrected WBC RBC 2.95 L (4.50-5.90) mil/mm3 Hgb 9.4 L (13.0-17.0) gm/dL POC Hgb (Calc) (13.0-17.0) g/dL Hct 26.3 L (39.0-51.0) % POC Hct (39-51.0) % MCV 89.1 (80.0-100.0) fL MCH 31.9 (27.0-34.0) pg MCHC 35.8 (32.0-36.0) % RDW 15.5 (11.6-17.2) % Plt Count 97 L (150-450) th/mm3 MPV 8.0 (7.0-11.0) fL Prelim Diff (Auto) Manual diff required Immature Gran % (Auto) Neut % (Auto) (16.0-70.0) % Lymph % (Auto) (9.0-44.0) % [place] % (Auto) (0.0-8.0) % Eos % (Auto) (0.0-4.0) % Baso % (Auto) (0.0-2.0) % Immature Gran # (Auto) Neut # (Auto) (1.8-7.7) th/mm3 Lymph # (Auto) (1.0-4.8) th/mm3 [place] # (Auto) (0.0-0.9) th/mm3 Eos # (Auto) (0.0-0.4) th/mm3 Baso # (Auto) (0.0-0.2) th/mm3 WBC Differential Manual diff final Diff Scan Seg Neuts % (Manual) 27 Band Neuts % (Manual) 9 H Lymphocytes % (Manual) 34 Atypical Lymphs % (Man) Monocytes % (Manual) 12 H Eosinophils % (Manual) 15 H Basophils % (Manual) 3 H Metamyelocytes % (Man) Myelocytes % (Man) Promyelocytes % (Man) Blast Cells % (Manual) Plasma Cell % (Manual) Other Cells % Abs Neuts (Manual) 0.4 L* Nucleated RBCs/100 WBC Differential Comment . Hypersegmented Neuts Smudge Cells Toxic Granulation Toxic Vacuolation Dohle Bodies Platelet Estimate Low L Platelet Morphology Enlarged H RBC Morphology Dimorphic RBCs Polychromasia Basophilic Stippling Spherocytes Pappenheimer Bodies Sickle Cells Target Cells Tear Drop Cells Ovalocytes Stomatocytes Helmet Cells Mcwilliams-Patoka Bodies Purling Cells Acanthocytes (Spur) Occ H Rouleaux Keratocytes Smear Path Review Hematology Comments PT (9.8-11.6) sec INR Ratio APTT (24.3-30.1) sec Fibrinogen (227-377) mg/dL Puncture Site Art line Patient Temperature 98.6 O2 Saturation 96 (90-100) % ABG pH 7.44 H (7.380-7.420) ABG pCO2 31 L (38-42) mmHg ABG pO2 103 (61-120) mmHG ABG HCO3 21 L (22-26) mmol/L ABG O2 Content 13.2 (12.0-20.0) Vol % ABG Base Excess -3.0 L (-2-2) mmol/L ABG Methemoglobin 1.1 (0-2) % Daniel Test Hemoglobin 9.6 L (12.0-16.0) G/DL Carboxyhemoglobin 1.5 (0-4) % O2 Delivery Device Ventilator Vent Setting Prvc/ac Inspired O2 35 % Critical Value No POC Sodium (137-144) mmol/L Sodium 147 H (136-145) meq/L POC Potassium (3.6-5.0) mmol/L Potassium 3.3 L (3.5-5.1) meq/L POC Chloride (102-111) mmol/L Chloride 117 H (98-107) meq/L Carbon Dioxide 22.5 (21.0-32.0) meq/L Anion Gap 8 (5-15) meq/L POC BUN (5-21) mg/dL BUN 20 H (7-18) mg/dL Creatinine 2.57 H (0.60-1.30) mg/dL POC Creatinine (0.6-1.3) mg/dL Estimated GFR 27 L (>89) mL/min POC Glucose (68-110) mg/dL Random Glucose 109 H (74-106) mg/dL Lactic Acid (0.4-2.0) mmol/L Calcium 7.3 L* (8.5-10.1) mg/dL Prot Corrected Calcium 8.7 (8.5-10.1) mg/dL Phosphorus (2.5-4.9) mg/dL Magnesium (1.5-2.5) mg/dL Total Bilirubin 2.6 H (0.2-1.0) mg/dL Direct Bilirubin (0.0-0.2) mg/dL Indirect Bilirubin (0.0-0.8) mg/dL AST 135 H (15-37) U/L ALT 34 (12-78) U/L Alkaline Phosphatase 70 (45-117) U/L Total Protein 4.7 L (6.4-8.2) g/dL Albumin 1.6 L (3.4-5.0) g/dL Procalcitonin (0.00-0.08) ng/mL Urine Color (Yellw/Straw) Urine Clarity (Clear) Urine pH (5.0-8.5) Ur Specific [place] (1.002-1.035) Urine Protein (Neg-Trace) mg/dL Urine Glucose (UA) (Negative) mg/dL Urine Ketones (Negative) mg/dL Urine Occult Blood (Negative) Urine Nitrate (Negative) Urine Bilirubin (Negative) Urine Ictotest (Negative) Urine Urobilinogen (Less than 2) mg/dL Ur Leukocyte Esterase (Negative) Urine RBC (0-3) /hpf Urine WBC (0-5) /hpf Amorphous Sediment (None) /hpf Urine Bacteria (None) /hpf Micro UA Comment Ur Microscopic Review Urine Culture Comments Vancomycin Trough (5.0-10.0) mcg/mL Urine Opiates Screen (Neg) Ur Buprenorphine (Negative) Ur Heroin Screen (Negative) Urine Oxycodone (Negative) Ur Methadone (Negative) U Hydromorphone Confirm (Negative) Urine Fentanyl (Negative) Acetaminophen (10.0-30.0) mcg/mL Ur Barbiturates Screen (Neg) Urine Gabapentin (Negative) Ur Phencyclidine (PCP) (Negative) Urine MDPV (Negative) Ur Amphetamine Screen (Neg) Ur Amphetamines Screen (Neg) Ur MDMA & Metabolites (Negative) U Benzodiazepines Scrn (Neg) U Benzodiazepine Confm (Negative) Urine Cocaine Screen (Neg) U Cannabinoids Screen (Neg) Ur Synth THC (K2) (Negative) Serum Alcohol (0-5) mg/dL Marrow Immunophenotype HIV 1&2 Ab/P24 Ag 4thGn (Nonreactive) Blood Type Antibody Screen MTS Gel Crossmatch Bld Prod Order Comment 03/24/18 03/24/18 03/24/18 Range/Units 13:28 13:28 13:28 CBC w Diff WBC (4.0-11.0) th/mm3 Corrected WBC RBC (4.50-5.90) mil/mm3 Hgb (13.0-17.0) gm/dL POC Hgb (Calc) (13.0-17.0) g/dL Hct (39.0-51.0) % POC Hct (39-51.0) % MCV (80.0-100.0) fL MCH (27.0-34.0) pg MCHC (32.0-36.0) % RDW (11.6-17.2) % Plt Count (150-450) th/mm3 MPV (7.0-11.0) fL Prelim Diff (Auto) Immature Gran % (Auto) Neut % (Auto) (16.0-70.0) % Lymph % (Auto) (9.0-44.0) % [place] % (Auto) (0.0-8.0) % Eos % (Auto) (0.0-4.0) % Baso % (Auto) (0.0-2.0) % Immature Gran # (Auto) Neut # (Auto) (1.8-7.7) th/mm3 Lymph # (Auto) (1.0-4.8) th/mm3 [place] # (Auto) (0.0-0.9) th/mm3 Eos # (Auto) (0.0-0.4) th/mm3 Baso # (Auto) (0.0-0.2) th/mm3 WBC Differential Diff Scan Seg Neuts % (Manual) Band Neuts % (Manual) Lymphocytes % (Manual) Atypical Lymphs % (Man) Monocytes % (Manual) Eosinophils % (Manual) Basophils % (Manual) Metamyelocytes % (Man) Myelocytes % (Man) Promyelocytes % (Man) Blast Cells % (Manual) Plasma Cell % (Manual) Other Cells % Abs Neuts (Manual) Nucleated RBCs/100 WBC Differential Comment Hypersegmented Neuts Smudge Cells Toxic Granulation Toxic Vacuolation Dohle Bodies Platelet Estimate Platelet Morphology RBC Morphology Dimorphic RBCs Polychromasia Basophilic Stippling Spherocytes Pappenheimer Bodies Sickle Cells Target Cells Tear Drop Cells Ovalocytes Stomatocytes Helmet Cells Mcwilliams-Patoka Bodies Soheila Cells Acanthocytes (Spur) Rouleaux Keratocytes Smear Path Review Hematology Comments PT (9.8-11.6) sec INR Ratio APTT (24.3-30.1) sec Fibrinogen 554 H (227-377) mg/dL Puncture Site Patient Temperature O2 Saturation (90-100) % ABG pH (7.380-7.420) ABG pCO2 (38-42) mmHg ABG pO2 (61-120) mmHG ABG HCO3 (22-26) mmol/L ABG O2 Content (12.0-20.0) Vol % ABG Base Excess (-2-2) mmol/L ABG Methemoglobin (0-2) % Adniel Test Hemoglobin (12.0-16.0) G/DL Carboxyhemoglobin (0-4) % O2 Delivery Device Vent Setting Inspired O2 % Critical Value POC Sodium (137-144) mmol/L Sodium (136-145) meq/L POC Potassium (3.6-5.0) mmol/L Potassium (3.5-5.1) meq/L POC Chloride (102-111) mmol/L Chloride (98-107) meq/L Carbon Dioxide (21.0-32.0) meq/L Anion Gap (5-15) meq/L POC BUN (5-21) mg/dL BUN (7-18) mg/dL Creatinine (0.60-1.30) mg/dL POC Creatinine (0.6-1.3) mg/dL Estimated GFR (>89) mL/min POC Glucose (68-110) mg/dL Random Glucose (74-106) mg/dL Lactic Acid (0.4-2.0) mmol/L Calcium (8.5-10.1) mg/dL Prot Corrected Calcium (8.5-10.1) mg/dL Phosphorus (2.5-4.9) mg/dL Magnesium (1.5-2.5) mg/dL Total Bilirubin (0.2-1.0) mg/dL Direct Bilirubin (0.0-0.2) mg/dL Indirect Bilirubin (0.0-0.8) mg/dL AST (15-37) U/L ALT (12-78) U/L Alkaline Phosphatase (45-117) U/L Total Protein (6.4-8.2) g/dL Albumin (3.4-5.0) g/dL Procalcitonin (0.00-0.08) ng/mL Urine Color (Yellw/Straw) Urine Clarity (Clear) Urine pH (5.0-8.5) Ur Specific Hawkeye (1.002-1.035) Urine Protein (Neg-Trace) mg/dL Urine Glucose (UA) (Negative) mg/dL Urine Ketones (Negative) mg/dL Urine Occult Blood (Negative) Urine Nitrate (Negative) Urine Bilirubin (Negative) Urine Ictotest (Negative) Urine Urobilinogen (Less than 2) mg/dL Ur Leukocyte Esterase (Negative) Urine RBC (0-3) /hpf Urine WBC (0-5) /hpf Amorphous Sediment (None) /hpf Urine Bacteria (None) /hpf Micro UA Comment Ur Microscopic Review Urine Culture Comments Vancomycin Trough (5.0-10.0) mcg/mL Urine Opiates Screen (Neg) Ur Buprenorphine (Negative) Ur Heroin Screen (Negative) Urine Oxycodone (Negative) Ur Methadone (Negative) U Hydromorphone Confirm (Negative) Urine Fentanyl (Negative) Acetaminophen Less than 2.0 L (10.0-30.0) mcg/mL Ur Barbiturates Screen (Neg) Urine Gabapentin (Negative) Ur Phencyclidine (PCP) (Negative) Urine MDPV (Negative) Ur Amphetamine Screen (Neg) Ur Amphetamines Screen (Neg) Ur MDMA & Metabolites (Negative) U Benzodiazepines Scrn (Neg) U Benzodiazepine Confm (Negative) Urine Cocaine Screen (Neg) U Cannabinoids Screen (Neg) Ur Synth THC (K2) (Negative) Serum Alcohol (0-5) mg/dL Marrow Immunophenotype HIV 1&2 Ab/P24 Ag 4thGn Nonreactive (Nonreactive) Blood Type Antibody Screen MTS Gel Crossmatch Bld Prod Order Comment 03/24/18 03/24/18 03/24/18 Range/Units 13:28 14:00 14:00 CBC w Diff WBC (4.0-11.0) th/mm3 Corrected WBC RBC (4.50-5.90) mil/mm3 Hgb (13.0-17.0) gm/dL POC Hgb (Calc) (13.0-17.0) g/dL Hct (39.0-51.0) % POC Hct (39-51.0) % MCV (80.0-100.0) fL MCH (27.0-34.0) pg MCHC (32.0-36.0) % RDW (11.6-17.2) % Plt Count (150-450) th/mm3 MPV (7.0-11.0) fL Prelim Diff (Auto) Immature Gran % (Auto) Neut % (Auto) (16.0-70.0) % Lymph % (Auto) (9.0-44.0) % [place] % (Auto) (0.0-8.0) % Eos % (Auto) (0.0-4.0) % Baso % (Auto) (0.0-2.0) % Immature Gran # (Auto) Neut # (Auto) (1.8-7.7) th/mm3 Lymph # (Auto) (1.0-4.8) th/mm3 [place] # (Auto) (0.0-0.9) th/mm3 Eos # (Auto) (0.0-0.4) th/mm3 Baso # (Auto) (0.0-0.2) th/mm3 WBC Differential Diff Scan Seg Neuts % (Manual) Band Neuts % (Manual) Lymphocytes % (Manual) Atypical Lymphs % (Man) Monocytes % (Manual) Eosinophils % (Manual) Basophils % (Manual) Metamyelocytes % (Man) Myelocytes % (Man) Promyelocytes % (Man) Blast Cells % (Manual) Plasma Cell % (Manual) Other Cells % Abs Neuts (Manual) Nucleated RBCs/100 WBC Differential Comment Hypersegmented Neuts Smudge Cells Toxic Granulation Toxic Vacuolation Dohle Bodies Platelet Estimate Platelet Morphology RBC Morphology Dimorphic RBCs Polychromasia Basophilic Stippling Spherocytes Pappenheimer Bodies Sickle Cells Target Cells Tear Drop Cells Ovalocytes Stomatocytes Helmet Cells Mcwilliams-Patoka Bodies Purling Cells Acanthocytes (Spur) Rouleaux Keratocytes Smear Path Review Hematology Comments PT (9.8-11.6) sec INR Ratio APTT (24.3-30.1) sec Fibrinogen (227-377) mg/dL Puncture Site Patient Temperature O2 Saturation (90-100) % ABG pH (7.380-7.420) ABG pCO2 (38-42) mmHg ABG pO2 (61-120) mmHG ABG HCO3 (22-26) mmol/L ABG O2 Content (12.0-20.0) Vol % ABG Base Excess (-2-2) mmol/L ABG Methemoglobin (0-2) % Daniel Test Hemoglobin (12.0-16.0) G/DL Carboxyhemoglobin (0-4) % O2 Delivery Device Vent Setting Inspired O2 % Critical Value POC Sodium (137-144) mmol/L Sodium (136-145) meq/L POC Potassium (3.6-5.0) mmol/L Potassium (3.5-5.1) meq/L POC Chloride (102-111) mmol/L Chloride (98-107) meq/L Carbon Dioxide (21.0-32.0) meq/L Anion Gap (5-15) meq/L POC BUN (5-21) mg/dL BUN (7-18) mg/dL Creatinine (0.60-1.30) mg/dL POC Creatinine (0.6-1.3) mg/dL Estimated GFR (>89) mL/min POC Glucose (68-110) mg/dL Random Glucose (74-106) mg/dL Lactic Acid (0.4-2.0) mmol/L Calcium (8.5-10.1) mg/dL Prot Corrected Calcium (8.5-10.1) mg/dL Phosphorus 1.6 L (2.5-4.9) mg/dL Magnesium 2.4 (1.5-2.5) mg/dL Total Bilirubin (0.2-1.0) mg/dL Direct Bilirubin (0.0-0.2) mg/dL Indirect Bilirubin (0.0-0.8) mg/dL AST (15-37) U/L ALT (12-78) U/L Alkaline Phosphatase (45-117) U/L Total Protein (6.4-8.2) g/dL Albumin (3.4-5.0) g/dL Procalcitonin (0.00-0.08) ng/mL Urine Color (Yellw/Straw) Urine Clarity (Clear) Urine pH (5.0-8.5) Ur Specific Hawkeye (1.002-1.035) Urine Protein (Neg-Trace) mg/dL Urine Glucose (UA) (Negative) mg/dL Urine Ketones (Negative) mg/dL Urine Occult Blood (Negative) Urine Nitrate (Negative) Urine Bilirubin (Negative) Urine Ictotest (Negative) Urine Urobilinogen (Less than 2) mg/dL Ur Leukocyte Esterase (Negative) Urine RBC (0-3) /hpf Urine WBC (0-5) /hpf Amorphous Sediment (None) /hpf Urine Bacteria (None) /hpf Micro UA Comment Ur Microscopic Review Urine Culture Comments Vancomycin Trough (5.0-10.0) mcg/mL Urine Opiates Screen Neg (Neg) Ur Buprenorphine Negative (Negative) Ur Heroin Screen Negative (Negative) Urine Oxycodone Negative (Negative) Ur Methadone Negative (Negative) U Hydromorphone Confirm Negative (Negative) Urine Fentanyl Positive A (Negative) Acetaminophen (10.0-30.0) mcg/mL Ur Barbiturates Screen Neg (Neg) Urine Gabapentin Negative (Negative) Ur Phencyclidine (PCP) Negative (Negative) Urine MDPV Negative (Negative) Ur Amphetamine Screen Neg (Neg) Ur Amphetamines Screen (Neg) Ur MDMA & Metabolites Negative (Negative) U Benzodiazepines Scrn Pos H (Neg) U Benzodiazepine Confm Negative (Negative) Urine Cocaine Screen Neg (Neg) U Cannabinoids Screen Neg (Neg) Ur Synth THC (K2) Negative (Negative) Serum Alcohol (0-5) mg/dL Marrow Immunophenotype HIV 1&2 Ab/P24 Ag 4thGn (Nonreactive) Blood Type Antibody Screen MTS Gel Crossmatch Bld Prod Order Comment 03/24/18 03/25/18 03/25/18 Range/Units 16:05 06:00 06:08 CBC w Diff WBC (4.0-11.0) th/mm3 Corrected WBC RBC (4.50-5.90) mil/mm3 Hgb (13.0-17.0) gm/dL POC Hgb (Calc) (13.0-17.0) g/dL Hct (39.0-51.0) % POC Hct (39-51.0) % MCV (80.0-100.0) fL MCH (27.0-34.0) pg MCHC (32.0-36.0) % RDW (11.6-17.2) % Plt Count (150-450) th/mm3 MPV (7.0-11.0) fL Prelim Diff (Auto) Immature Gran % (Auto) Neut % (Auto) (16.0-70.0) % Lymph % (Auto) (9.0-44.0) % [place] % (Auto) (0.0-8.0) % Eos % (Auto) (0.0-4.0) % Baso % (Auto) (0.0-2.0) % Immature Gran # (Auto) Neut # (Auto) (1.8-7.7) th/mm3 Lymph # (Auto) (1.0-4.8) th/mm3 [place] # (Auto) (0.0-0.9) th/mm3 Eos # (Auto) (0.0-0.4) th/mm3 Baso # (Auto) (0.0-0.2) th/mm3 WBC Differential Diff Scan Seg Neuts % (Manual) Band Neuts % (Manual) Lymphocytes % (Manual) Atypical Lymphs % (Man) Monocytes % (Manual) Eosinophils % (Manual) Basophils % (Manual) Metamyelocytes % (Man) Myelocytes % (Man) Promyelocytes % (Man) Blast Cells % (Manual) Plasma Cell % (Manual) Other Cells % Abs Neuts (Manual) Nucleated RBCs/100 WBC Differential Comment Hypersegmented Neuts Smudge Cells Toxic Granulation Toxic Vacuolation Dohle Bodies Platelet Estimate Platelet Morphology RBC Morphology Dimorphic RBCs Polychromasia Basophilic Stippling Spherocytes Pappenheimer Bodies Sickle Cells Target Cells Tear Drop Cells Ovalocytes Stomatocytes Helmet Cells Mcwilliams-Patoka Bodies Purling Cells Acanthocytes (Spur) Rouleaux Keratocytes Smear Path Review Hematology Comments PT (9.8-11.6) sec INR Ratio APTT (24.3-30.1) sec Fibrinogen (227-377) mg/dL Puncture Site Right brachial Patient Temperature 98.6 O2 Saturation 95 (90-100) % ABG pH 7.51 H* (7.380-7.420) ABG pCO2 26 L (38-42) mmHg ABG pO2 85 (61-120) mmHG ABG HCO3 21 L (22-26) mmol/L ABG O2 Content 15.0 (12.0-20.0) Vol % ABG Base Excess -2.1 L (-2-2) mmol/L ABG Methemoglobin 1.2 (0-2) % Daniel Test Present Hemoglobin 11.2 L (12.0-16.0) G/DL Carboxyhemoglobin 1.4 (0-4) % O2 Delivery Device Ventilator Vent Setting See comment Inspired O2 40 % Critical Value Yes POC Sodium (137-144) mmol/L Sodium 151 H (136-145) meq/L POC Potassium (3.6-5.0) mmol/L Potassium 3.3 L (3.5-5.1) meq/L POC Chloride (102-111) mmol/L Chloride 119 H (98-107) meq/L Carbon Dioxide 22.8 (21.0-32.0) meq/L Anion Gap 9 (5-15) meq/L POC BUN (5-21) mg/dL BUN 23 H (7-18) mg/dL Creatinine 2.74 H (0.60-1.30) mg/dL POC Creatinine (0.6-1.3) mg/dL Estimated GFR 25 L (>89) mL/min POC Glucose (68-110) mg/dL Random Glucose 98 (74-106) mg/dL Lactic Acid (0.4-2.0) mmol/L Calcium 7.5 L (8.5-10.1) mg/dL Prot Corrected Calcium (8.5-10.1) mg/dL Phosphorus (2.5-4.9) mg/dL Magnesium (1.5-2.5) mg/dL Total Bilirubin 2.1 H (0.2-1.0) mg/dL Direct Bilirubin (0.0-0.2) mg/dL Indirect Bilirubin (0.0-0.8) mg/dL AST 94 H (15-37) U/L ALT 24 (12-78) U/L Alkaline Phosphatase 104 (45-117) U/L Total Protein 5.0 L (6.4-8.2) g/dL Albumin 1.4 L (3.4-5.0) g/dL Procalcitonin (0.00-0.08) ng/mL Urine Color (Yellw/Straw) Urine Clarity (Clear) Urine pH (5.0-8.5) Ur Specific Hawkeye (1.002-1.035) Urine Protein (Neg-Trace) mg/dL Urine Glucose (UA) (Negative) mg/dL Urine Ketones (Negative) mg/dL Urine Occult Blood (Negative) Urine Nitrate (Negative) Urine Bilirubin (Negative) Urine Ictotest (Negative) Urine Urobilinogen (Less than 2) mg/dL Ur Leukocyte Esterase (Negative) Urine RBC (0-3) /hpf Urine WBC (0-5) /hpf Amorphous Sediment (None) /hpf Urine Bacteria (None) /hpf Micro UA Comment Ur Microscopic Review Urine Culture Comments Vancomycin Trough (5.0-10.0) mcg/mL Urine Opiates Screen (Neg) Ur Buprenorphine (Negative) Ur Heroin Screen (Negative) Urine Oxycodone (Negative) Ur Methadone (Negative) U Hydromorphone Confirm (Negative) Urine Fentanyl (Negative) Acetaminophen (10.0-30.0) mcg/mL Ur Barbiturates Screen (Neg) Urine Gabapentin (Negative) Ur Phencyclidine (PCP) (Negative) Urine MDPV (Negative) Ur Amphetamine Screen (Neg) Ur Amphetamines Screen (Neg) Ur MDMA & Metabolites (Negative) U Benzodiazepines Scrn (Neg) U Benzodiazepine Confm (Negative) Urine Cocaine Screen (Neg) U Cannabinoids Screen (Neg) Ur Synth THC (K2) (Negative) Serum Alcohol (0-5) mg/dL Marrow Immunophenotype HIV 1&2 Ab/P24 Ag 4thGn (Nonreactive) Blood Type Antibody Screen MTS Gel Crossmatch Bld Prod Order Comment 03/25/18 03/25/18 Range/Units 06:08 06:08 CBC w Diff WBC 1.6 L (4.0-11.0) th/mm3 Corrected WBC RBC 2.84 L (4.50-5.90) mil/mm3 Hgb 8.9 L (13.0-17.0) gm/dL POC Hgb (Calc) (13.0-17.0) g/dL Hct 25.8 L (39.0-51.0) % POC Hct (39-51.0) % MCV 90.8 (80.0-100.0) fL MCH 31.2 (27.0-34.0) pg MCHC 34.4 (32.0-36.0) % RDW 15.3 (11.6-17.2) % Plt Count 115 L (150-450) th/mm3 MPV 8.2 (7.0-11.0) fL Prelim Diff (Auto) Manual diff required Immature Gran % (Auto) Neut % (Auto) (16.0-70.0) % Lymph % (Auto) (9.0-44.0) % [place] % (Auto) (0.0-8.0) % Eos % (Auto) (0.0-4.0) % Baso % (Auto) (0.0-2.0) % Immature Gran # (Auto) Neut # (Auto) (1.8-7.7) th/mm3 Lymph # (Auto) (1.0-4.8) th/mm3 [place] # (Auto) (0.0-0.9) th/mm3 Eos # (Auto) (0.0-0.4) th/mm3 Baso # (Auto) (0.0-0.2) th/mm3 WBC Differential Manual diff final Diff Scan Seg Neuts % (Manual) 34 Band Neuts % (Manual) 11 H Lymphocytes % (Manual) 22 Atypical Lymphs % (Man) Monocytes % (Manual) 21 H Eosinophils % (Manual) 8 H Basophils % (Manual) 3 H Metamyelocytes % (Man) Myelocytes % (Man) Promyelocytes % (Man) 1 H Blast Cells % (Manual) Plasma Cell % (Manual) Other Cells % Abs Neuts (Manual) 0.7 L Nucleated RBCs/100 WBC Differential Comment . Hypersegmented Neuts Smudge Cells Toxic Granulation Toxic Vacuolation Dohle Bodies Platelet Estimate Low L Platelet Morphology Normal RBC Morphology Dimorphic RBCs Polychromasia Basophilic Stippling Spherocytes Pappenheimer Bodies Sickle Cells Target Cells Tear Drop Cells Ovalocytes Stomatocytes Helmet Cells Mcwilliams-Patoka Bodies Purling Cells Acanthocytes (Spur) Rouleaux Keratocytes Smear Path Review Hematology Comments PT (9.8-11.6) sec INR Ratio APTT (24.3-30.1) sec Fibrinogen (227-377) mg/dL Puncture Site Patient Temperature O2 Saturation (90-100) % ABG pH (7.380-7.420) ABG pCO2 (38-42) mmHg ABG pO2 (61-120) mmHG ABG HCO3 (22-26) mmol/L ABG O2 Content (12.0-20.0) Vol % ABG Base Excess (-2-2) mmol/L ABG Methemoglobin (0-2) % Daniel Test Hemoglobin (12.0-16.0) G/DL Carboxyhemoglobin (0-4) % O2 Delivery Device Vent Setting Inspired O2 % Critical Value POC Sodium (137-144) mmol/L Sodium (136-145) meq/L POC Potassium (3.6-5.0) mmol/L Potassium (3.5-5.1) meq/L POC Chloride (102-111) mmol/L Chloride (98-107) meq/L Carbon Dioxide (21.0-32.0) meq/L Anion Gap (5-15) meq/L POC BUN (5-21) mg/dL BUN (7-18) mg/dL Creatinine (0.60-1.30) mg/dL POC Creatinine (0.6-1.3) mg/dL Estimated GFR (>89) mL/min POC Glucose (68-110) mg/dL Random Glucose (74-106) mg/dL Lactic Acid (0.4-2.0) mmol/L Calcium (8.5-10.1) mg/dL Prot Corrected Calcium (8.5-10.1) mg/dL Phosphorus (2.5-4.9) mg/dL Magnesium (1.5-2.5) mg/dL Total Bilirubin (0.2-1.0) mg/dL Direct Bilirubin (0.0-0.2) mg/dL Indirect Bilirubin (0.0-0.8) mg/dL AST (15-37) U/L ALT (12-78) U/L Alkaline Phosphatase (45-117) U/L Total Protein (6.4-8.2) g/dL Albumin (3.4-5.0) g/dL Procalcitonin (0.00-0.08) ng/mL Urine Color (Yellw/Straw) Urine Clarity (Clear) Urine pH (5.0-8.5) Ur Specific [place] (1.002-1.035) Urine Protein (Neg-Trace) mg/dL Urine Glucose (UA) (Negative) mg/dL Urine Ketones (Negative) mg/dL Urine Occult Blood (Negative) Urine Nitrate (Negative) Urine Bilirubin (Negative) Urine Ictotest (Negative) Urine Urobilinogen (Less than 2) mg/dL Ur Leukocyte Esterase (Negative) Urine RBC (0-3) /hpf Urine WBC (0-5) /hpf Amorphous Sediment (None) /hpf Urine Bacteria (None) /hpf Micro UA Comment Ur Microscopic Review Urine Culture Comments Vancomycin Trough (5.0-10.0) mcg/mL Urine Opiates Screen (Neg) Ur Buprenorphine (Negative) Ur Heroin Screen (Negative) Urine Oxycodone (Negative) Ur Methadone (Negative) U Hydromorphone Confirm (Negative) Urine Fentanyl (Negative) Acetaminophen (10.0-30.0) mcg/mL Ur Barbiturates Screen (Neg) Urine Gabapentin (Negative) Ur Phencyclidine (PCP) (Negative) Urine MDPV (Negative) Ur Amphetamine Screen (Neg) Ur Amphetamines Screen (Neg) Ur MDMA & Metabolites (Negative) U Benzodiazepines Scrn (Neg) U Benzodiazepine Confm (Negative) Urine Cocaine Screen (Neg) U Cannabinoids Screen (Neg) Ur Synth THC (K2) (Negative) Serum Alcohol (0-5) mg/dL Marrow Immunophenotype HIV 1&2 Ab/P24 Ag 4thGn (Nonreactive) Blood Type Antibody Screen MTS Gel Crossmatch Bld Prod Order Comment Imaging Data Radiologist's impression: Ankle X-Ray 03/20/18 00:00 CONCLUSION: 1. Severely comminuted fractures involving the distal tibia and fibula with gas in the subcutaneous tissues suggesting open fracture. 2. The ankle mortise is disrupted. The lateral malleolus appears to be posterior to the talus. Aorta w/Runoff CTA 03/20/18 00:00 CONCLUSION: 1. No evidence of proximal arterial injury. 2. In the distal left calf, the left anterior tibial artery is attenuated and displaced by the patient's tibial fractures, however flow does appear to be intact into the dorsalis pedis. The peroneal and posterior tibial vessels taper to absence at the level of the fracture injury, potentially secondary to soft tissue swelling and/or vasospasm. 3. If circulation to the foot remains in question following fracture reduction , catheter arteriography is offered for definitive assessment Hip X-Ray 03/20/18 00:00 CONCLUSION: Severely comminuted fracturing of the left acetabulum. Previously seen dislocation of the left hip has been reduced back into the socket. Shoulder X-Ray 03/20/18 00:00 CONCLUSION: Comminuted Hill-Sachs/greater tuberosity fracturing of the left humerus. The previously seen anterior dislocation has been reduced. Tibia/Fibula X-Ray 03/20/18 00:00 CONCLUSION: Interim external fixation as described. No acute complication demonstrated. Chest X-Ray 03/20/18 13:12 CONCLUSION: Negative examination. Pelvis X-Ray 03/20/18 13:12 CONCLUSION: Acute left pelvic fracture including acetabular protrusio. Abdomen/Pelvis CT 03/20/18 13:15 CONCLUSION: 1. Heavily comminuted left pelvic fractures with associated intrapelvic hemorrhage. 2. Dislocated left hip. Cervical Spine CT 03/20/18 13:15 CONCLUSION: No acute bony injury in the cervical spine. Chest CT 03/20/18 13:15 CONCLUSION: 1. Left shoulder anterior dislocation with comminuted impacted Hill-Sachs fracture deformity. 2. No acute intrathoracic injury. Head CT 03/20/18 13:15 CONCLUSION: 1. No acute intracranial abnormality. 2. Chronic paranasal sinus disease. . Thoracic Spine CT 03/20/18 13:15 CONCLUSION: 1. No acute fracture of the thoracic spine identified. Shoulder CT 03/20/18 15:01 CONCLUSION: 1. Dislocation of the humeral head on the glenoid with a markedly comminuted fracture involving the greater tuberosity. The glenoid Glenoid shows no evidence of fracture. Numerous small possible metallic fragments lateral to the humeral neck extending into the deltoid muscle. Pelvis CT 03/20/18 15:05 CONCLUSION: 1. Left pelvic fractures are noted. Ankle CT 03/21/18 00:00 CONCLUSION: 1. Markedly comminuted distal tibia fracture. External fixation in place. Fracture involves the distal tibiofibular syndesmosis and the tibiotalar joint. There is evidence of disruption of the ankle mortise. 2. Comment distal fibular fracture. 3. Prominent medial soft tissue defect. 4. Soft tissue contusion/hematoma as well as muscle tear at the distal gastrocnemius muscle posteriorly. Chest X-Ray 03/21/18 00:00 CONCLUSION: 1. ETT in good position. NGT in the stomach. 2. Lungs are clear. Hip/Pelvis X-Ray 03/21/18 00:00 CONCLUSION: Internal fixation hardware in the acetabulum and proximal femur. Pelvis CT 03/21/18 00:00 CONCLUSION: 1. Left posterior hip dislocation with a severely comminuted fracture of the acetabulum predominately involving the posterior column. 2. Large left hip joint effusion with fat/fluid level 3. Left-sided pelvic retroperitoneal hematoma with no other evidence of pelvic soft tissue injury. Abdomen/Pelvis CT 03/23/18 00:00 CONCLUSION: 1. There is been interval orthopedic surgery involving the left hip and left hemipelvis with reduction of the previously seen dislocation of the hip. There is a small volume of hemorrhage within the pelvis bilaterally tracking up the retroperitoneal soft tissues bilaterally. Overall the amount of blood is stable within the pelvis but the retroperitoneal component is new. The retroperitoneal component is quite small. No intraperitoneal hemorrhage. Chest X-Ray 03/23/18 00:00 CONCLUSION: 1. Interval development of left lower lobe airspace disease and probable trace pleural effusion. Chest CT 03/23/18 09:30 CONCLUSION: 1. Interval development of small bilateral pleural effusions and associated bibasilar consolidation. 2. Interval reduction of the previously seen left shoulder dislocation. The humeral fracture is stable. Chest X-Ray 03/23/18 11:31 CONCLUSION: Right subclavian central line without pneumothorax. Unchanged left lower lobe infiltrate and suspected small left effusion. Bone Marrow Biopsy w/ CT 03/24/18 00:00 CONCLUSION: 1. Uncomplicated CT guided bone marrow aspirate. 2. Uncomplicated CT guided bone marrow biopsy. Chest X-Ray 03/25/18 00:00 CONCLUSION: Slight interval worsening in aeration. Discharge Plan Discharge Disposition Patient Disposition: 70 Transfer To Other Facility Discharge Order Discharge Orders: Discharge Order (Routine); Ordered 03/25/18 Ordered By: Markell Scott Physicians Team ED Provider: Wilfredo Henning Primary Care Provider: UNKNOWN, Attending Provider: Markell Scott Other Providers: Forrest Del Rosario ; Seun Williamson ; Farshad Nolen ; [employer] ; Jay Sun ; Cristina Rosas ; Rishabh Lizama ; Diana Zhang ; Cassi Jerez ; Markell Scott ; Maycol Beckman Status ED Status: Left Department Discharge Information Discharge Date/Time: 03/20/18 15:24 Discharge Location: [facility]
== END 2018-03-25 20:35 | disposition short-term general hospital (02) ==
LOC: NEPI 13:11 → N03 14:27 → EDBD 14:27 → N03 15:24
PROVIDERS: ADMIT Surgery; ATTEND Surgery
PROC: ORIFACE (2018-03-21 09:24)
DX: S32.592A Other specified fracture of left pubis, initial encounter for closed fracture; T79.4XXA Traumatic shock, initial encounter; K74.60 Unspecified cirrhosis of liver; S42.252A Displaced fracture of greater tuberosity of left humerus, initial encounter for closed fracture; S91.302A Unspecified open wound, left foot, initial encounter; F10.129 Alcohol abuse with intoxication, unspecified; D70.9 Neutropenia, unspecified; Z23 Encounter for immunization; S82.832C Other fracture of upper and lower end of left fibula, initial encounter for open fracture type IIIA, IIIB, or IIIC; S85.142A Laceration of anterior tibial artery, left leg, initial encounter; M96.89 Other intraoperative and postprocedural complications and disorders of the musculoskeletal system; R65.10 Systemic inflammatory response syndrome (SIRS) of non-infectious origin without acute organ dysfunction; S82.392C Other fracture of lower end of left tibia, initial encounter for open fracture type IIIA, IIIB, or IIIC; S32.402A Unspecified fracture of left acetabulum, initial encounter for closed fracture; Y90.6 Blood alcohol level of 120-199 mg/100 ml; J96.90 Respiratory failure, unspecified, unspecified whether with hypoxia or hypercapnia; S43.036A Inferior dislocation of unspecified humerus, initial encounter; I95.9 Hypotension, unspecified; M24.452 Recurrent dislocation, left hip; D59.9 Acquired hemolytic anemia, unspecified; E87.2 Acidosis; D69.59 Other secondary thrombocytopenia; S73.015A Posterior dislocation of left hip, initial encounter; N17.9 Acute kidney failure, unspecified; V29.9XXA Motorcycle rider (driver) (passenger) injured in unspecified traffic accident, initial encounter; F17.210 Nicotine dependence, cigarettes, uncomplicated